=== PATIENT | male | born 1945 | race Caucasian/White ===

== ENCOUNTER 2017-10-22 09:41 | Inpatient (IN) | payer OTHER, MEDICAID ==
[2017-10-22 13:20] LABS: ADD MAN DIFF? NO
[2017-10-22 13:23] LABS: WHITE BLOOD COUNT 6.2 10^3/ul (4.8-10.8)
[2017-10-22 13:23] LABS: ABNORMAL IP MESSAGE 1; BASOPHIL # 0.1 10^3/ul (0.0-0.1); BASOPHILS % 0.8 % (0.0-2.0); EOSINOPHILS # 0.3 10^3/ul (0.0-0.5); EOSINOPHILS % 5.5 % (0.0-7.0); HEMATOCRIT 40.6 % (42.0-52.0); HEMOGLOBIN 13.8 g/dl (14.0-18.0); LYMPHOCYTES # 0.6 10^3/ul (0.8-2.9); MEAN CORPUSCULAR HEMOGLOBIN 28.9 pg (29.0-33.0); MEAN CORPUSCULAR VOLUME 85.1 fl (82.0-101.0); MEAN PLATELET VOLUME 10.1 fl (7.4-10.4); MONOCYTE # 0.9 10^3/ul (0.3-0.9); NEUTROPHIL # 4.4 10^3/ul (1.6-7.5); NEUTROPHILS % 70.4 % (39.0-77.0); PLATELET COUNT 209 10^3/UL (140-415); POSITIVE DIFF @See below; RED BLOOD COUNT 4.77 10^6/ul (4.70-6.10); RED CELL DISTRIBUTION WIDTH 13.7 % (11.5-14.5)
[2017-10-22 13:38] LABS: INR 0.96; PROTIME 12.9 Sec (11.9-14.9)
[2017-10-22 13:39] LABS: PARTIAL THROMBOPLASTIN TIME 26.4 Sec (25.0-35.0)
[2017-10-22 13:40] LABS: ANION GAP 19 (8-16); BLOOD UREA NITROGEN 34 mg/dl (7-20); CALCIUM 8.8 mg/dl (8.4-10.2); CARBON DIOXIDE 23 mmol/L (21-31); CHLORIDE 107 mmol/L (97-110); CREATININE 2.49 mg/dl (0.61-1.24); GLUCOSE 158 mg/dl (70-220); POTASSIUM 3.7 mmol/L (3.5-5.1); SODIUM 145 mmol/L (135-144)
[2017-10-22 13:52] LABS: TROPONIN-I 0.072 ng/ml (0.00-0.12)
[2017-10-22] MEDS: IPRATROPIUM (NEB) 0.5 MG/2.5 ML AMP INH (13:55)
[2017-10-22] MEDS: ALBUTEROL 0.083% (NEB) 2.5 MG/3 ML AMP INH (13:55)
[2017-10-22 14:32] LABS: B-TYPE NATRIURETIC PEPTIDE 3860 PG/ML (0-125)
[2017-10-22] MEDS: CEFTRIAXONE 1 GM/50 ML (PMX) 50 ML IVPB (18:05)
[2017-10-22] MEDS: AZITHROMYCIN 500MG/NS (PMX) 250 ML IVPB (18:44)
[2017-10-22] MEDS ORDERED: ONDANSETRON 4 MG INJ IV (20:00)
[2017-10-22] MEDS: NITROGLYCERIN 2% 1 GM OINT PKT TD (22:33)
[2017-10-22] MEDS: ACETAMINOPHEN 325 MG TAB PO (22:34)
[2017-10-23] MEDS ORDERED: hydrALAzine 20 MG INJ (00:51)
[2017-10-23] MEDS: hydrALAzine 20 MG INJ IV ×3 (00:53→22:14)
[2017-10-23] MEDS: LABETALOL HCL 20MG INJ IV (02:51)
[2017-10-23] MEDS ORDERED: traMADol 50 MG TAB PO (05:00)
[2017-10-23] MEDS ORDERED: ACETAMINOPHEN 325 MG TAB PO (05:00)
[2017-10-23] MEDS ORDERED: ONDANSETRON 4 MG INJ IV (05:00)
[2017-10-23] MEDS ORDERED: NACL 0.9% 3 ML SYG IV (05:00)
[2017-10-23] MEDS ORDERED: ALBUTEROL/IPRATROPIUM (NEB) 3 ML AMP HHN (05:00)
[2017-10-23] MEDS: PANTOPRAZOLE (EC) 40 MG TAB PO (05:38)
[2017-10-23] MEDS: LEVOFLOXACIN 500MG/D5W (PMX) 100 ML IVPB (05:38)
[2017-10-23] MEDS: LOSARTAN 50 MG TAB PO (08:28)
[2017-10-23] MEDS: AMLODIPINE 10 MG TAB PO (08:28)
[2017-10-23] MEDS: CLOPIDOGREL 75 MG TAB PO (08:28)
[2017-10-23] MEDS: FEBUXOSTAT 40 MG TABLET PO (08:29)
[2017-10-23] MEDS: ISOSORBIDE DINITRATE 10 MG TAB PO (08:29)
[2017-10-23] MEDS ORDERED: GLUCAGON 1 MG INJ IM (12:30)
[2017-10-23] MEDS ORDERED: DEXTROSE 50% 50 ML SYRINGE IV ×2 (12:30)
[2017-10-23] MEDS ORDERED: GLUCOSE GEL 15 GRAM TUBE BUCCAL (12:30)
[2017-10-23] MEDS ORDERED: GLUCOSE GEL 15 GRAM TUBE PO ×2 (12:30)
[2017-10-23] MEDS: FUROSEMIDE 20 MG INJ IV (13:24)
[2017-10-23] MEDS: ASPIRIN 81 MG TAB PO (13:24)
[2017-10-23] MEDS: ALBUTEROL/IPRATROPIUM (NEB) 3 ML AMP HHN ×2 (15:25→22:00)
[2017-10-23] MEDS: INSULIN ASPART [NOVOLOG] 3 ML PEN SC ×2 (17:37→20:20)
[2017-10-23] MEDS: INSULIN GLARGINE [LANtus] 3 ML PEN SC (20:21)
[2017-10-23] MEDS: ATORVASTATIN 20 MG TAB PO (20:23)
[2017-10-23] MEDS ORDERED: [UNRECOGNIZED DRUG - OTHER] SQ (21:00)
[2017-10-23] MEDS ORDERED: INSULIN GLARGINE HUM REC ANLOG 20 UNIT SQ (21:00)
[2017-10-24] MEDS: ACCU-CHEK XX (02:23)
[2017-10-24] MEDS: PANTOPRAZOLE (EC) 40 MG TAB PO (05:19)
[2017-10-24] MEDS: LEVOFLOXACIN 250MG/D5W (PMX) 50 ML IVPB (05:19)
[2017-10-24] MEDS: CEPASTAT LOZENGE MT (05:23)
[2017-10-24 06:08] LABS: ADD MAN DIFF? NO
[2017-10-24 06:34] LABS: BASOPHIL # 0.1 10^3/ul (0.0-0.1); EOSINOPHILS # 0.5 10^3/ul (0.0-0.5); EOSINOPHILS % 6.5 % (0.0-7.0); HEMATOCRIT 36.7 % (42.0-52.0); HEMOGLOBIN 12.5 g/dl (14.0-18.0); LYMPHOCYTES # 1.1 10^3/ul (0.8-2.9); LYMPHOCYTES % 16.4 % (15.0-51.0); MEAN CORPUSCULAR HEMOGLOBIN 28.6 pg (29.0-33.0); MEAN CORPUSCULAR HGB CONC 34.1 g/dl (32.0-37.0); MEAN PLATELET VOLUME 10.3 fl (7.4-10.4); MONOCYTE # 0.8 10^3/ul (0.3-0.9); MONOCYTES % 11.2 % (0.0-11.0); NEUTROPHIL # 4.5 10^3/ul (1.6-7.5); NEUTROPHILS % 64.6 % (39.0-77.0); PLATELET COUNT 227 10^3/UL (140-415); POSITIVE DIFF @See below; RED BLOOD COUNT 4.37 10^6/ul (4.70-6.10); RED CELL DISTRIBUTION WIDTH 14.1 % (11.5-14.5)
[2017-10-24 06:34] LABS: WHITE BLOOD COUNT 6.9 10^3/ul (4.8-10.8)
[2017-10-24 07:32] LABS: ALANINE AMINOTRANSFERASE 33 IU/L (13-69); ALBUMIN 3.3 g/dl (3.3-4.9); ALKALINE PHOSPHATASE 88 IU/L (42-121); ANION GAP 17 (8-16); ASPARTATE AMINO TRANSFERASE 23 IU/L (15-46); BILIRUBIN,INDIRECT 0.1 mg/dl (0-1.1); BILIRUBIN,TOTAL 0.1 mg/dl (0.2-1.3); BLOOD UREA NITROGEN 41 mg/dl (7-20); CALCIUM 8.8 mg/dl (8.4-10.2); CARBON DIOXIDE 23 mmol/L (21-31); CHLORIDE 108 mmol/L (97-110); CREATININE 2.48 mg/dl (0.61-1.24); GLUCOSE 152 mg/dl (70-220); MAGNESIUM 1.9 mg/dl (1.7-2.5); PHOSPHORUS 3.4 mg/dl (2.5-4.9); POTASSIUM 3.7 mmol/L (3.5-5.1); SODIUM 144 mmol/L (135-144); TOTAL PROTEIN 6.3 g/dl (6.1-8.1)
[2017-10-24] MEDS ORDERED: morphine 2 MG INJ IV (08:00)
[2017-10-24] MEDS: INSULIN ASPART [NOVOLOG] 3 ML PEN SC ×4 (08:06→20:13)
[2017-10-24] MEDS: ALBUTEROL/IPRATROPIUM (NEB) 3 ML AMP HHN ×3 (08:08→20:09)
[2017-10-24] MEDS: LOSARTAN 50 MG TAB PO (08:47)
[2017-10-24] MEDS: ISOSORBIDE DINITRATE 10 MG TAB PO (08:47)
[2017-10-24] MEDS: FEBUXOSTAT 40 MG TABLET PO (08:47)
[2017-10-24] MEDS: ASPIRIN 81 MG TAB PO (08:48)
[2017-10-24] MEDS: CLOPIDOGREL 75 MG TAB PO (08:48)
[2017-10-24] MEDS: AMLODIPINE 10 MG TAB PO (08:48)
[2017-10-24 09:00] LABS: TROPONIN-I 0.057 ng/ml (0.00-0.12)
[2017-10-24] MEDS: predniSONE 20 MG TAB PO (12:31)
[2017-10-24] MEDS: ATORVASTATIN 20 MG TAB PO (20:09)
[2017-10-24] MEDS: INSULIN GLARGINE [LANtus] 3 ML PEN SC (20:11)
[2017-10-25] MEDS: ACCU-CHEK XX (02:00)
[2017-10-25] MEDS: LEVOFLOXACIN 250 MG TAB PO (05:09)
[2017-10-25] MEDS: PANTOPRAZOLE (EC) 40 MG TAB PO (05:09)
[2017-10-25] MEDS: ALBUTEROL/IPRATROPIUM (NEB) 3 ML AMP HHN ×3 (08:02→19:10)
[2017-10-25] MEDS: INSULIN ASPART [NOVOLOG] 3 ML PEN SC ×7 (08:20→22:08)
[2017-10-25] MEDS: LOSARTAN 50 MG TAB PO (09:29)
[2017-10-25] MEDS: CLOPIDOGREL 75 MG TAB PO (09:30)
[2017-10-25] MEDS: FEBUXOSTAT 40 MG TABLET PO (09:30)
[2017-10-25] MEDS: predniSONE 20 MG TAB PO (09:30)
[2017-10-25] MEDS: AMLODIPINE 10 MG TAB PO (09:30)
[2017-10-25] MEDS: ASPIRIN 81 MG TAB PO (09:31)
[2017-10-25] MEDS: ISOSORBIDE DINITRATE 10 MG TAB PO (09:31)
[2017-10-25] MEDS: ATORVASTATIN 20 MG TAB PO (20:32)
[2017-10-25] MEDS: INSULIN GLARGINE [LANtus] 3 ML PEN SC (20:35)
[2017-10-25 21:37] LABS: GLUCOSE 507 mg/dl (70-220)
[2017-10-26] MEDS: ACCU-CHEK XX (01:20)
[2017-10-26] MEDS: hydrALAzine 20 MG INJ IV (02:31)
[2017-10-26] MEDS: INSULIN ASPART [NOVOLOG] 3 ML PEN SC ×7 (02:35→20:45)
[2017-10-26] MEDS: LEVOFLOXACIN 250 MG TAB PO (05:16)
[2017-10-26] MEDS: PANTOPRAZOLE (EC) 40 MG TAB PO (05:16)
[2017-10-26] MEDS: PHENOL 1.4% SOLN 180 ML BTL MT (05:55)
[2017-10-26] MEDS: CEPASTAT LOZENGE MT ×3 (06:30→18:03)
[2017-10-26 07:27] LABS: ALBUMIN 3.2 g/dl (3.3-4.9); ANION GAP 16 (8-16); BLOOD UREA NITROGEN 68 mg/dl (7-20); CARBON DIOXIDE 19 mmol/L (21-31); CHLORIDE 106 mmol/L (97-110); CREATININE 2.95 mg/dl (0.61-1.24); GLUCOSE 263 mg/dl (70-220); PHOSPHORUS 4.4 mg/dl (2.5-4.9); POTASSIUM 3.9 mmol/L (3.5-5.1); SODIUM 137 mmol/L (135-144)
[2017-10-26] MEDS: ALBUTEROL/IPRATROPIUM (NEB) 3 ML AMP HHN ×3 (08:10→19:32)
[2017-10-26] MEDS: FLUTICASONE 0.05% 16 GM NAS SPRAY NASAL ×2 (09:21→20:22)
[2017-10-26] MEDS: ASPIRIN 81 MG TAB PO (09:22)
[2017-10-26] MEDS: DOCUSATE SODIUM 100 MG CAP PO ×2 (09:23→20:22)
[2017-10-26] MEDS: LOSARTAN 50 MG TAB PO (09:23)
[2017-10-26] MEDS: CLOPIDOGREL 75 MG TAB PO (09:24)
[2017-10-26] MEDS: AMLODIPINE 10 MG TAB PO (09:24)
[2017-10-26] MEDS: POLYETHYLENE GLYCOL 17 GM PACKET PO (09:24)
[2017-10-26] MEDS: predniSONE 20 MG TAB PO ×2 (09:24→13:00)
[2017-10-26] MEDS: ISOSORBIDE DINITRATE 10 MG TAB PO (09:24)
[2017-10-26] MEDS: FEBUXOSTAT 40 MG TABLET PO (09:29)
[2017-10-26] MEDS: ATORVASTATIN 20 MG TAB PO (20:22)
[2017-10-26] MEDS: INSULIN GLARGINE [LANtus] 3 ML PEN SC (20:24)
[2017-10-27] MEDS: ACCU-CHEK XX (02:00)
[2017-10-27] MEDS: INSULIN ASPART [NOVOLOG] 3 ML PEN SC ×8 (02:23→20:39)
[2017-10-27] MEDS: PANTOPRAZOLE (EC) 40 MG TAB PO (05:34)
[2017-10-27] MEDS: LEVOFLOXACIN 250 MG TAB PO (05:34)
[2017-10-27 07:05] LABS: ANION GAP 14 (8-16); ANION GAP 16 (8-16); BLOOD UREA NITROGEN 75 mg/dl (7-20); BLOOD UREA NITROGEN 76 mg/dl (7-20); CALCIUM 8.6 mg/dl (8.4-10.2); CALCIUM 8.9 mg/dl (8.4-10.2); CARBON DIOXIDE 22 mmol/L (21-31); CARBON DIOXIDE 23 mmol/L (21-31); CHLORIDE 104 mmol/L (97-110); CREATININE 3.25 mg/dl (0.61-1.24); GLUCOSE 293 mg/dl (70-220); GLUCOSE 301 mg/dl (70-220); MAGNESIUM 2.1 mg/dl (1.7-2.5); PHOSPHORUS 4.8 mg/dl (2.5-4.9); POTASSIUM 4.4 mmol/L (3.5-5.1); POTASSIUM 4.9 mmol/L (3.5-5.1); SODIUM 137 mmol/L (135-144)
[2017-10-27] MEDS: ALBUTEROL/IPRATROPIUM (NEB) 3 ML AMP HHN ×3 (08:01→20:16)
[2017-10-27] MEDS: FEBUXOSTAT 40 MG TABLET PO (08:29)
[2017-10-27] MEDS: ASPIRIN 81 MG TAB PO (08:29)
[2017-10-27] MEDS: DOCUSATE SODIUM 100 MG CAP PO ×2 (08:29→20:36)
[2017-10-27] MEDS: AMLODIPINE 10 MG TAB PO (08:29)
[2017-10-27] MEDS: CLOPIDOGREL 75 MG TAB PO (08:29)
[2017-10-27] MEDS: FLUTICASONE 0.05% 16 GM NAS SPRAY NASAL ×2 (08:29→20:36)
[2017-10-27] MEDS: ISOSORBIDE DINITRATE 10 MG TAB PO (08:30)
[2017-10-27] MEDS: POLYETHYLENE GLYCOL 17 GM PACKET PO (08:30)
[2017-10-27] MEDS: ATORVASTATIN 20 MG TAB PO (20:36)
[2017-10-27] MEDS: CEPASTAT LOZENGE MT (20:36)
[2017-10-27] MEDS: INSULIN GLARGINE [LANtus] 3 ML PEN SC (20:38)
[2017-10-28] MEDS: PHENOL 1.4% SOLN 180 ML BTL MT (00:56)
[2017-10-28] MEDS: CEPASTAT LOZENGE MT ×2 (00:56→05:39)
[2017-10-28] MEDS ORDERED: CAMPHOR TOP (01:00)
[2017-10-28] MEDS ORDERED: MENTHOL TOP (01:00)
[2017-10-28] MEDS: DIMETHICONE STICK TOP (01:03)
[2017-10-28] MEDS: ACCU-CHEK XX (01:27)
[2017-10-28] MEDS: BENZONATATE 100 MG CAP PO ×3 (01:33→12:24)
[2017-10-28] MEDS: PANTOPRAZOLE (EC) 40 MG TAB PO (05:34)
[2017-10-28] MEDS: LEVOFLOXACIN 250 MG TAB PO (05:34)
[2017-10-28] MEDS: ALBUTEROL/IPRATROPIUM (NEB) 3 ML AMP HHN ×2 (08:00→15:05)
[2017-10-28] MEDS: INSULIN ASPART [NOVOLOG] 3 ML PEN SC ×4 (08:00→12:21)
[2017-10-28 08:03] LABS: ALBUMIN 3.1 g/dl (3.3-4.9); ANION GAP 15 (8-16); BLOOD UREA NITROGEN 73 mg/dl (7-20); CALCIUM 8.3 mg/dl (8.4-10.2); CARBON DIOXIDE 21 mmol/L (21-31); CHLORIDE 109 mmol/L (97-110); CREATININE 2.77 mg/dl (0.61-1.24); GLUCOSE 159 mg/dl (70-220); MAGNESIUM 2.1 mg/dl (1.7-2.5); PHOSPHORUS 4.3 mg/dl (2.5-4.9); POTASSIUM 3.7 mmol/L (3.5-5.1); SODIUM 141 mmol/L (135-144)
[2017-10-28 08:07] LABS: ANION GAP 17 (8-16); BLOOD UREA NITROGEN 75 mg/dl (7-20); CALCIUM 8.2 mg/dl (8.4-10.2); CARBON DIOXIDE 20 mmol/L (21-31); CHLORIDE 108 mmol/L (97-110); CREATININE 2.64 mg/dl (0.61-1.24); GLUCOSE 154 mg/dl (70-220); POTASSIUM 4.1 mmol/L (3.5-5.1); SODIUM 141 mmol/L (135-144)
[2017-10-28] MEDS: ISOSORBIDE DINITRATE 10 MG TAB PO (08:59)
[2017-10-28] MEDS: FLUTICASONE 0.05% 16 GM NAS SPRAY NASAL (08:59)
[2017-10-28] MEDS: AMLODIPINE 10 MG TAB PO (09:00)
[2017-10-28] MEDS: FEBUXOSTAT 40 MG TABLET PO (09:00)
[2017-10-28] MEDS: DOCUSATE SODIUM 100 MG CAP PO (09:00)
[2017-10-28] MEDS: ASPIRIN 81 MG TAB PO (09:00)
[2017-10-28] MEDS: POLYETHYLENE GLYCOL 17 GM PACKET PO (09:00)
[2017-10-28] MEDS: CLOPIDOGREL 75 MG TAB PO (09:00)
== END 2017-10-28 16:50 | disposition home or self-care (01) | DRG 202 ==
LOC: PP2 19:40 → E/R 09:41
DX: J20.8 Acute bronchitis due to other specified organisms (principal); J18.9 Pneumonia, unspecified organism; I50.23 Acute on chronic systolic (congestive) heart failure; N17.9 Acute kidney failure, unspecified; I13.0 Hypertensive heart and chronic kidney disease with heart failure and stage 1 through stage 4 chronic kidney disease, or unspecified chronic kidney disease; I42.9 Cardiomyopathy, unspecified; E11.9 Type 2 diabetes mellitus without complications; J44.0 Chronic obstructive pulmonary disease with (acute) lower respiratory infection; J44.1 Chronic obstructive pulmonary disease with (acute) exacerbation; Z95.5 Presence of coronary angioplasty implant and graft; J45.20 Mild intermittent asthma, uncomplicated; Z87.891 Personal history of nicotine dependence; E78.5 Hyperlipidemia, unspecified; I20.9 Angina pectoris, unspecified; N18.9 Chronic kidney disease, unspecified; M10.9 Gout, unspecified
CPT/HCPCS: 36415; 71045; 71250; 76775; 80048; 80053; 80069; 82947; 82962; 83735; 83880; 84100; 84484; 85025; 85610; 85730; 87400; 93005; 93306; 94640; 94664; 96374; 96375; 96376; 97166; 97535; 99285-25; J1940

== ENCOUNTER 2017-10-30 03:40 | Inpatient (IN) | payer OTHER, MEDICAID ==
[2017-10-30 04:09] LABS: ADD MAN DIFF? NO
[2017-10-30 04:11] LABS: BASOPHILS % 0.4 % (0.0-2.0); EOSINOPHILS # 0.5 10^3/ul (0.0-0.5); HEMATOCRIT 39.2 % (42.0-52.0); HEMOGLOBIN 13.4 g/dl (14.0-18.0); LYMPHOCYTES # 1.4 10^3/ul (0.8-2.9); LYMPHOCYTES % 15.1 % (15.0-51.0); MEAN CORPUSCULAR HEMOGLOBIN 28.8 pg (29.0-33.0); MEAN CORPUSCULAR HGB CONC 34.2 g/dl (32.0-37.0); MEAN CORPUSCULAR VOLUME 84.1 fl (82.0-101.0); MONOCYTES % 11.5 % (0.0-11.0); NEUTROPHIL # 5.9 10^3/ul (1.6-7.5); PLATELET COUNT 287 10^3/UL (140-415); RED BLOOD COUNT 4.66 10^6/ul (4.70-6.10); RED CELL DISTRIBUTION WIDTH 13.8 % (11.5-14.5)
[2017-10-30 04:27] LABS: ANION GAP 15 (8-16); BLOOD UREA NITROGEN 52 mg/dl (7-20); CALCIUM 8.6 mg/dl (8.4-10.2); CARBON DIOXIDE 24 mmol/L (21-31); CHLORIDE 108 mmol/L (97-110); CREATININE 2.32 mg/dl (0.61-1.24); GLUCOSE 127 mg/dl (70-220); POTASSIUM 3.8 mmol/L (3.5-5.1); SODIUM 143 mmol/L (135-144)
[2017-10-30 04:38] LABS: B-TYPE NATRIURETIC PEPTIDE 2430 PG/ML (0-125); TROPONIN-I 0.047 ng/ml (0.00-0.12)
[2017-10-30 04:52] LABS: INR 0.89; PROTIME 12.1 Sec (11.9-14.9); PT RATIO 0.9
[2017-10-30] MEDS ORDERED: NACL 0.9% 3 ML SYG IV (06:00)
[2017-10-30] MEDS ORDERED: ONDANSETRON 4 MG TAB PO (06:00)
[2017-10-30] MEDS ORDERED: BISACODYL (EC) 5 MG TAB PO (06:00)
[2017-10-30] MEDS: FUROSEMIDE 40 MG INJ IV (06:25)
[2017-10-30] MEDS ORDERED: hydrALAzine 20 MG INJ IV ×2 (09:00→13:00)
[2017-10-30] MEDS ORDERED: GLUCAGON 1 MG INJ IM (10:00)
[2017-10-30] MEDS ORDERED: DEXTROSE 50% 50 ML SYRINGE IV ×2 (10:00)
[2017-10-30] MEDS ORDERED: GLUCOSE GEL 15 GRAM TUBE BUCCAL (10:00)
[2017-10-30] MEDS ORDERED: GLUCOSE GEL 15 GRAM TUBE PO ×2 (10:00)
[2017-10-30] MEDS: FISH OIL 1,000 MG CAP PO ×2 (10:33→21:36)
[2017-10-30] MEDS: ASPIRIN 81 MG TAB PO (10:33)
[2017-10-30] MEDS: AMLODIPINE 10 MG TAB PO (10:33)
[2017-10-30] MEDS: CLOPIDOGREL 75 MG TAB PO (10:34)
[2017-10-30] MEDS: FEBUXOSTAT 40 MG TABLET PO (10:34)
[2017-10-30] MEDS: ISOSORBIDE MONONITRATE(SR)30 MG TAB PO (10:34)
[2017-10-30] MEDS: INSULIN ASPART [NOVOLOG] 3 ML PEN SC ×5 (12:31→21:00)
[2017-10-30] MEDS: ALBUTEROL/IPRATROPIUM (NEB) 3 ML AMP HHN ×2 (14:00→20:09)
[2017-10-30] MEDS: FUROSEMIDE 20 MG INJ IV (17:08)
[2017-10-30] MEDS ORDERED: FUROSEMIDE 40 MG INJ IV (18:00)
[2017-10-30] MEDS ORDERED: INSULIN GLARGINE [LANtus] 3 ML PEN SC (21:00)
[2017-10-30] MEDS: ATORVASTATIN 20 MG TAB PO (21:36)
[2017-10-30] MEDS: HEPARIN 5,000 UNIT/0.5 ML VIAL SC (21:38)
[2017-10-31] MEDS: ACCU-CHEK XX (02:00)
[2017-10-31] MEDS: FUROSEMIDE 20 MG INJ IV ×2 (06:36→18:44)
[2017-10-31] MEDS: PANTOPRAZOLE (EC) 40 MG TAB PO (06:36)
[2017-10-31 06:43] LABS: ADD MAN DIFF? NO
[2017-10-31 06:50] LABS: WHITE BLOOD COUNT 11.8 10^3/ul (4.8-10.8)
[2017-10-31 06:50] LABS: BASOPHIL # 0.1 10^3/ul (0.0-0.1); BASOPHILS % 0.4 % (0.0-2.0); EOSINOPHILS # 0.6 10^3/ul (0.0-0.5); EOSINOPHILS % 5.1 % (0.0-7.0); HEMOGLOBIN 13.8 g/dl (14.0-18.0); LYMPHOCYTES # 1.3 10^3/ul (0.8-2.9); LYMPHOCYTES % 11.3 % (15.0-51.0); MEAN CORPUSCULAR HEMOGLOBIN 27.8 pg (29.0-33.0); MEAN CORPUSCULAR HGB CONC 32.9 g/dl (32.0-37.0); MEAN CORPUSCULAR VOLUME 84.7 fl (82.0-101.0); MEAN PLATELET VOLUME 10.1 fl (7.4-10.4); MONOCYTE # 1.1 10^3/ul (0.3-0.9); NEUTROPHIL # 8.7 10^3/ul (1.6-7.5); NEUTROPHILS % 73.6 % (39.0-77.0); PLATELET COUNT 302 10^3/UL (140-415); RED BLOOD COUNT 4.96 10^6/ul (4.70-6.10); RED CELL DISTRIBUTION WIDTH 13.8 % (11.5-14.5)
[2017-10-31 07:09] LABS: ALANINE AMINOTRANSFERASE 36 IU/L (13-69); ALBUMIN 3.1 g/dl (3.3-4.9); ALKALINE PHOSPHATASE 87 IU/L (42-121); ANION GAP 14 (8-16); ASPARTATE AMINO TRANSFERASE 22 IU/L (15-46); BILIRUBIN,INDIRECT 0.4 mg/dl (0-1.1); BILIRUBIN,TOTAL 0.4 mg/dl (0.2-1.3); BLOOD UREA NITROGEN 59 mg/dl (7-20); CARBON DIOXIDE 26 mmol/L (21-31); CHLORIDE 104 mmol/L (97-110); CHOL/HDL RATIO 3.3 RATIO; CHOLESTEROL 117 mg/dl (100-200); CREATININE 2.38 mg/dl (0.61-1.24); GLUCOSE 126 mg/dl (70-220); HDL CHOLESTEROL 35 mg/dl (31-75); LDL CHOLESTEROL,CALCULATED 58 mg/dl; POTASSIUM 3.6 mmol/L (3.5-5.1); SODIUM 140 mmol/L (135-144); TOTAL PROTEIN 5.9 g/dl (6.1-8.1); TRIGLYCERIDES 121 mg/dl (0-149)
[2017-10-31 07:12] LABS: CREATINE KINASE 41 IU/L (23-200); URIC ACID 6.7 mg/dl (3.1-7.9)
[2017-10-31 07:51] LABS: HEMOGLOBIN A1C 8.2 % (0-5.9)
[2017-10-31] MEDS: ALBUTEROL/IPRATROPIUM (NEB) 3 ML AMP HHN ×3 (07:57→20:02)
[2017-10-31] MEDS: INSULIN ASPART [NOVOLOG] 3 ML PEN SC ×7 (08:00→21:00)
[2017-10-31 08:39] LABS: SODIUM,URINE RANDOM 98 mmol/L (30-90)
[2017-10-31 08:42] LABS: CREATININE,URINE RANDOM 33.29 mg/dl (20-370)
[2017-10-31] MEDS: HEPARIN 5,000 UNIT/0.5 ML VIAL SC ×2 (08:49→21:15)
[2017-10-31] MEDS: INSULIN GLARGINE [LANtus] 3 ML PEN SC (08:50)
[2017-10-31] MEDS: FEBUXOSTAT 40 MG TABLET PO (08:50)
[2017-10-31] MEDS: AMLODIPINE 10 MG TAB PO (08:51)
[2017-10-31] MEDS: ISOSORBIDE MONONITRATE(SR)30 MG TAB PO (08:51)
[2017-10-31] MEDS: ASPIRIN 81 MG TAB PO (08:51)
[2017-10-31] MEDS: FISH OIL 1,000 MG CAP PO ×2 (08:51→21:06)
[2017-10-31] MEDS: CLOPIDOGREL 75 MG TAB PO (08:51)
[2017-10-31] MEDS ORDERED: ISOSORBIDE MONONITRATE(SR)30 MG TAB PO (09:00)
[2017-10-31] MEDS: ATORVASTATIN 20 MG TAB PO (21:06)
[2017-11-01] MEDS: ACCU-CHEK XX (02:00)
[2017-11-01] MEDS: PANTOPRAZOLE (EC) 40 MG TAB PO (06:48)
[2017-11-01] MEDS: FUROSEMIDE 20 MG INJ IV (06:48)
[2017-11-01] MEDS: ALBUTEROL/IPRATROPIUM (NEB) 3 ML AMP HHN ×3 (08:05→19:42)
[2017-11-01] MEDS: FEBUXOSTAT 40 MG TABLET PO (08:44)
[2017-11-01] MEDS: FISH OIL 1,000 MG CAP PO ×2 (08:45→21:19)
[2017-11-01] MEDS: ASPIRIN 81 MG TAB PO (08:45)
[2017-11-01] MEDS: ISOSORBIDE MONONITRATE(SR)30 MG TAB PO (08:45)
[2017-11-01] MEDS: CLOPIDOGREL 75 MG TAB PO (08:45)
[2017-11-01] MEDS: AMLODIPINE 10 MG TAB PO (08:46)
[2017-11-01] MEDS: HEPARIN 5,000 UNIT/0.5 ML VIAL SC ×2 (08:50→21:22)
[2017-11-01] MEDS: INSULIN ASPART [NOVOLOG] 3 ML PEN SC ×7 (08:51→21:00)
[2017-11-01] MEDS: INSULIN GLARGINE [LANtus] 3 ML PEN SC (08:52)
[2017-11-01 08:55] LABS: ADD MAN DIFF? NO
[2017-11-01 09:02] LABS: WHITE BLOOD COUNT 14.8 10^3/ul (4.8-10.8)
[2017-11-01 09:02] LABS: BASOPHIL # 0.1 10^3/ul (0.0-0.1); BASOPHILS % 0.4 % (0.0-2.0); EOSINOPHILS # 0.6 10^3/ul (0.0-0.5); EOSINOPHILS % 3.9 % (0.0-7.0); HEMOGLOBIN 13.3 g/dl (14.0-18.0); LYMPHOCYTES # 1.2 10^3/ul (0.8-2.9); MEAN CORPUSCULAR HEMOGLOBIN 28.6 pg (29.0-33.0); MEAN CORPUSCULAR HGB CONC 34.1 g/dl (32.0-37.0); MEAN CORPUSCULAR VOLUME 83.9 fl (82.0-101.0); MEAN PLATELET VOLUME 10.7 fl (7.4-10.4); MONOCYTE # 1.3 10^3/ul (0.3-0.9); MONOCYTES % 9.1 % (0.0-11.0); NEUTROPHIL # 11.6 10^3/ul (1.6-7.5); NEUTROPHILS % 78.1 % (39.0-77.0); PLATELET COUNT 283 10^3/UL (140-415); RED BLOOD COUNT 4.65 10^6/ul (4.70-6.10)
[2017-11-01 09:18] LABS: PHOSPHORUS 4.5 mg/dl (2.5-4.9)
[2017-11-01 09:21] LABS: ANION GAP 14 (8-16); BLOOD UREA NITROGEN 74 mg/dl (7-20); CALCIUM 8.8 mg/dl (8.4-10.2); CARBON DIOXIDE 24 mmol/L (21-31); CHLORIDE 102 mmol/L (97-110); CREATININE 2.97 mg/dl (0.61-1.24); GLUCOSE 194 mg/dl (70-220); POTASSIUM 3.3 mmol/L (3.5-5.1); SODIUM 137 mmol/L (135-144)
[2017-11-01] MEDS: POTASSIUM CHLORIDE (SR) 20 MEQ TAB PO (10:32)
[2017-11-01] MEDS ORDERED: GUAIFENESIN 20 MG/ML 5ML CUP PO (14:00)
[2017-11-01] MEDS: GABAPENTIN 100 MG CAP PO (21:19)
[2017-11-01] MEDS: ATORVASTATIN 20 MG TAB PO (21:20)
[2017-11-01] MEDS: BENZONATATE 100 MG CAP PO (21:20)
[2017-11-02] MEDS: ACCU-CHEK XX (02:00)
[2017-11-02] MEDS: ACETAMINOPHEN 325 MG TAB PO ×2 (04:07→09:46)
[2017-11-02] MEDS: PANTOPRAZOLE (EC) 40 MG TAB PO (05:55)
[2017-11-02] MEDS: ALBUTEROL/IPRATROPIUM (NEB) 3 ML AMP HHN ×3 (07:46→20:28)
[2017-11-02] MEDS: INSULIN GLARGINE [LANtus] 3 ML PEN SC (08:32)
[2017-11-02] MEDS: INSULIN ASPART [NOVOLOG] 3 ML PEN SC ×7 (08:32→20:39)
[2017-11-02] MEDS: ISOSORBIDE MONONITRATE(SR)30 MG TAB PO (09:00)
[2017-11-02 09:10] LABS: ADD MAN DIFF? NO
[2017-11-02 09:21] LABS: WHITE BLOOD COUNT 12.5 10^3/ul (4.8-10.8)
[2017-11-02 09:21] LABS: ABNORMAL IP MESSAGE 1; BASOPHIL # 0.1 10^3/ul (0.0-0.1); BASOPHILS % 0.5 % (0.0-2.0); EOSINOPHILS # 0.2 10^3/ul (0.0-0.5); EOSINOPHILS % 1.7 % (0.0-7.0); HEMATOCRIT 37.1 % (42.0-52.0); HEMOGLOBIN 12.6 g/dl (14.0-18.0); LYMPHOCYTES # 0.9 10^3/ul (0.8-2.9); LYMPHOCYTES % 7.4 % (15.0-51.0); MEAN CORPUSCULAR HEMOGLOBIN 28.3 pg (29.0-33.0); MEAN CORPUSCULAR VOLUME 83.4 fl (82.0-101.0); MEAN PLATELET VOLUME 10.6 fl (7.4-10.4); MONOCYTE # 1.5 10^3/ul (0.3-0.9); MONOCYTES % 12.1 % (0.0-11.0); NEUTROPHIL # 9.7 10^3/ul (1.6-7.5); NEUTROPHILS % 77.8 % (39.0-77.0); PLATELET COUNT 250 10^3/UL (140-415); POSITIVE DIFF @See below; RED BLOOD COUNT 4.45 10^6/ul (4.70-6.10)
[2017-11-02 09:45] LABS: B-TYPE NATRIURETIC PEPTIDE 1050 PG/ML (0-125)
[2017-11-02] MEDS: BENZONATATE 100 MG CAP PO ×3 (09:45→20:14)
[2017-11-02] MEDS: FEBUXOSTAT 40 MG TABLET PO (09:45)
[2017-11-02] MEDS: FISH OIL 1,000 MG CAP PO ×2 (09:45→20:14)
[2017-11-02] MEDS: AMLODIPINE 10 MG TAB PO (09:45)
[2017-11-02] MEDS: GABAPENTIN 100 MG CAP PO ×3 (09:45→20:13)
[2017-11-02] MEDS: CLOPIDOGREL 75 MG TAB PO (09:46)
[2017-11-02] MEDS: ASPIRIN 81 MG TAB PO (09:46)
[2017-11-02 09:48] LABS: ANION GAP 13 (8-16); BLOOD UREA NITROGEN 75 mg/dl (7-20); CALCIUM 8.6 mg/dl (8.4-10.2); CARBON DIOXIDE 24 mmol/L (21-31); CHLORIDE 103 mmol/L (97-110); CREATININE 2.65 mg/dl (0.61-1.24); GLUCOSE 176 mg/dl (70-220); POTASSIUM 3.7 mmol/L (3.5-5.1); SODIUM 136 mmol/L (135-144)
[2017-11-02] MEDS: HEPARIN 5,000 UNIT/0.5 ML VIAL SC ×2 (10:23→20:16)
[2017-11-02] MEDS: ATORVASTATIN 20 MG TAB PO (20:13)
[2017-11-02] MEDS: HYDROCODONE/APAP (5/325) TAB PO (20:36)
[2017-11-03] MEDS: ACCU-CHEK XX (02:00)
[2017-11-03] MEDS: HYDROCODONE/APAP (5/325) TAB PO (03:35)
[2017-11-03] MEDS: PANTOPRAZOLE (EC) 40 MG TAB PO (05:21)
[2017-11-03 07:16] LABS: ADD MAN DIFF? NO
[2017-11-03 07:17] LABS: WHITE BLOOD COUNT 12.6 10^3/ul (4.8-10.8)
[2017-11-03 07:17] LABS: ABNORMAL IP MESSAGE 1; BASOPHIL # 0.1 10^3/ul (0.0-0.1); BASOPHILS % 0.4 % (0.0-2.0); EOSINOPHILS # 0.2 10^3/ul (0.0-0.5); EOSINOPHILS % 1.4 % (0.0-7.0); HEMATOCRIT 34.9 % (42.0-52.0); HEMOGLOBIN 11.8 g/dl (14.0-18.0); LYMPHOCYTES % 7.8 % (15.0-51.0); MEAN CORPUSCULAR HEMOGLOBIN 28.4 pg (29.0-33.0); MEAN CORPUSCULAR HGB CONC 33.8 g/dl (32.0-37.0); MEAN CORPUSCULAR VOLUME 83.9 fl (82.0-101.0); MEAN PLATELET VOLUME 10.5 fl (7.4-10.4); MONOCYTES % 16.2 % (0.0-11.0); NEUTROPHIL # 9.3 10^3/ul (1.6-7.5); NEUTROPHILS % 73.8 % (39.0-77.0); PLATELET COUNT 223 10^3/UL (140-415); POSITIVE DIFF @See below; RED BLOOD COUNT 4.16 10^6/ul (4.70-6.10)
[2017-11-03 07:53] LABS: ANION GAP 21 (8-16)
[2017-11-03 07:54] LABS: BLOOD UREA NITROGEN 74 mg/dl (7-20); CALCIUM 7.1 mg/dl (8.4-10.2); CARBON DIOXIDE 15 mmol/L (21-31); CHLORIDE 104 mmol/L (97-110); GLUCOSE 148 mg/dl (70-220); SODIUM 136 mmol/L (135-144)
[2017-11-03] MEDS: FISH OIL 1,000 MG CAP PO ×2 (08:28→21:53)
[2017-11-03] MEDS: CLOPIDOGREL 75 MG TAB PO (08:28)
[2017-11-03] MEDS: GABAPENTIN 100 MG CAP PO ×3 (08:28→21:54)
[2017-11-03] MEDS: BENZONATATE 100 MG CAP PO ×3 (08:28→21:58)
[2017-11-03] MEDS: FEBUXOSTAT 40 MG TABLET PO (08:28)
[2017-11-03] MEDS: AMLODIPINE 10 MG TAB PO (08:29)
[2017-11-03] MEDS: ISOSORBIDE MONONITRATE(SR)30 MG TAB PO (08:30)
[2017-11-03] MEDS: HEPARIN 5,000 UNIT/0.5 ML VIAL SC ×2 (08:30→22:00)
[2017-11-03] MEDS: ASPIRIN 81 MG TAB PO (08:30)
[2017-11-03] MEDS: INSULIN ASPART [NOVOLOG] 3 ML PEN SC ×7 (08:31→21:00)
[2017-11-03] MEDS: INSULIN GLARGINE [LANtus] 3 ML PEN SC (08:32)
[2017-11-03] MEDS: ALBUTEROL/IPRATROPIUM (NEB) 3 ML AMP HHN ×3 (08:50→19:43)
[2017-11-03] MEDS ORDERED: DICLOFENAC (EC) 25 MG TAB PO (10:30)
[2017-11-03 10:57] LABS: URIC ACID 5.5 mg/dl (3.1-7.9)
[2017-11-03] MEDS: AZITHROMYCIN 250 MG TAB PO (12:20)
[2017-11-03] MEDS: DICLOFENAC (EC) 75 MG TAB PO ×2 (12:20→21:59)
[2017-11-03] MEDS: ATORVASTATIN 20 MG TAB PO (21:53)
[2017-11-04] MEDS: ACCU-CHEK XX (02:00)
[2017-11-04] MEDS: PANTOPRAZOLE (EC) 40 MG TAB PO (05:07)
[2017-11-04] MEDS: ALBUTEROL/IPRATROPIUM (NEB) 3 ML AMP HHN ×3 (08:11→20:04)
[2017-11-04] MEDS: INSULIN ASPART [NOVOLOG] 3 ML PEN SC ×7 (08:42→21:05)
[2017-11-04] MEDS: INSULIN GLARGINE [LANtus] 3 ML PEN SC (08:46)
[2017-11-04] MEDS: FISH OIL 1,000 MG CAP PO ×2 (09:47→21:01)
[2017-11-04] MEDS: CITRIC ACID/SODIUM CITRATE 15 ML CUP PO ×2 (09:47→21:00)
[2017-11-04] MEDS: CLOPIDOGREL 75 MG TAB PO (09:47)
[2017-11-04] MEDS: BENZONATATE 100 MG CAP PO ×3 (09:47→21:01)
[2017-11-04] MEDS: AZITHROMYCIN 250 MG TAB PO (09:47)
[2017-11-04] MEDS: DICLOFENAC (EC) 75 MG TAB PO ×2 (09:47→21:01)
[2017-11-04] MEDS: ASPIRIN 81 MG TAB PO (09:47)
[2017-11-04] MEDS: FEBUXOSTAT 40 MG TABLET PO (09:47)
[2017-11-04] MEDS: GABAPENTIN 100 MG CAP PO ×3 (09:47→21:01)
[2017-11-04] MEDS: AMLODIPINE 10 MG TAB PO (09:48)
[2017-11-04] MEDS: ISOSORBIDE MONONITRATE(SR)30 MG TAB PO (09:48)
[2017-11-04] MEDS: HEPARIN 5,000 UNIT/0.5 ML VIAL SC ×2 (09:54→21:03)
[2017-11-04 09:59] LABS: ADD MAN DIFF? NO
[2017-11-04 10:11] LABS: WHITE BLOOD COUNT 7.7 10^3/ul (4.8-10.8)
[2017-11-04 10:11] LABS: BASOPHIL # 0.1 10^3/ul (0.0-0.1); BASOPHILS % 0.6 % (0.0-2.0); EOSINOPHILS # 0.2 10^3/ul (0.0-0.5); EOSINOPHILS % 2.7 % (0.0-7.0); HEMATOCRIT 34.6 % (42.0-52.0); HEMOGLOBIN 11.5 g/dl (14.0-18.0); MEAN CORPUSCULAR HEMOGLOBIN 28.3 pg (29.0-33.0); MEAN CORPUSCULAR HGB CONC 33.2 g/dl (32.0-37.0); MEAN CORPUSCULAR VOLUME 85.2 fl (82.0-101.0); MEAN PLATELET VOLUME 11.4 fl (7.4-10.4); MONOCYTE # 0.8 10^3/ul (0.3-0.9); MONOCYTES % 10.6 % (0.0-11.0); NEUTROPHIL # 5.6 10^3/ul (1.6-7.5); NEUTROPHILS % 72.8 % (39.0-77.0); PLATELET COUNT 229 10^3/UL (140-415); RED BLOOD COUNT 4.06 10^6/ul (4.70-6.10); RED CELL DISTRIBUTION WIDTH 13.9 % (11.5-14.5)
[2017-11-04 10:42] LABS: ANION GAP 15 (8-16); BLOOD UREA NITROGEN 76 mg/dl (7-20); CALCIUM 8.2 mg/dl (8.4-10.2); CARBON DIOXIDE 23 mmol/L (21-31); CHLORIDE 102 mmol/L (97-110); CREATININE 2.83 mg/dl (0.61-1.24); GLUCOSE 283 mg/dl (70-220); POTASSIUM 3.8 mmol/L (3.5-5.1); SODIUM 136 mmol/L (135-144)
[2017-11-04] MEDS: ATORVASTATIN 20 MG TAB PO (21:01)
[2017-11-05] MEDS: ACCU-CHEK XX (02:00)
[2017-11-05] MEDS: PANTOPRAZOLE (EC) 40 MG TAB PO (05:29)
[2017-11-05] MEDS: ALBUTEROL/IPRATROPIUM (NEB) 3 ML AMP HHN ×3 (07:47→19:19)
[2017-11-05 07:48] LABS: ADD MAN DIFF? NO
[2017-11-05 07:52] LABS: BASOPHIL # 0.1 10^3/ul (0.0-0.1); BASOPHILS % 0.7 % (0.0-2.0); EOSINOPHILS # 0.4 10^3/ul (0.0-0.5); EOSINOPHILS % 4.2 % (0.0-7.0); HEMATOCRIT 35.4 % (42.0-52.0); HEMOGLOBIN 11.5 g/dl (14.0-18.0); LYMPHOCYTES # 1.1 10^3/ul (0.8-2.9); MEAN CORPUSCULAR HEMOGLOBIN 28.3 pg (29.0-33.0); MEAN CORPUSCULAR HGB CONC 32.5 g/dl (32.0-37.0); MEAN PLATELET VOLUME 11.1 fl (7.4-10.4); MONOCYTES % 11.2 % (0.0-11.0); NEUTROPHILS % 70.5 % (39.0-77.0); PLATELET COUNT 247 10^3/UL (140-415); RED BLOOD COUNT 4.07 10^6/ul (4.70-6.10); RED CELL DISTRIBUTION WIDTH 13.9 % (11.5-14.5)
[2017-11-05 07:52] LABS: WHITE BLOOD COUNT 8.5 10^3/ul (4.8-10.8)
[2017-11-05 08:15] LABS: ANION GAP 11 (8-16); BLOOD UREA NITROGEN 89 mg/dl (7-20); CALCIUM 8.7 mg/dl (8.4-10.2); CARBON DIOXIDE 25 mmol/L (21-31); CHLORIDE 103 mmol/L (97-110); CREATININE 3.06 mg/dl (0.61-1.24); GLUCOSE 333 mg/dl (70-220); POTASSIUM 4.4 mmol/L (3.5-5.1); SODIUM 135 mmol/L (135-144)
[2017-11-05] MEDS: INSULIN GLARGINE [LANtus] 3 ML PEN SC (09:14)
[2017-11-05] MEDS: INSULIN ASPART [NOVOLOG] 3 ML PEN SC ×7 (09:15→20:30)
[2017-11-05] MEDS: HEPARIN 5,000 UNIT/0.5 ML VIAL SC ×2 (09:17→20:31)
[2017-11-05] MEDS: FISH OIL 1,000 MG CAP PO ×2 (09:54→20:22)
[2017-11-05] MEDS: FEBUXOSTAT 40 MG TABLET PO (09:54)
[2017-11-05] MEDS: GABAPENTIN 100 MG CAP PO ×3 (09:54→20:22)
[2017-11-05] MEDS: AZITHROMYCIN 250 MG TAB PO (09:55)
[2017-11-05] MEDS: BENZONATATE 100 MG CAP PO ×3 (09:55→20:22)
[2017-11-05] MEDS: ASPIRIN 81 MG TAB PO (09:55)
[2017-11-05] MEDS: CLOPIDOGREL 75 MG TAB PO (09:56)
[2017-11-05] MEDS: ISOSORBIDE MONONITRATE(SR)30 MG TAB PO (09:56)
[2017-11-05] MEDS: AMLODIPINE 5 MG TAB PO (09:56)
[2017-11-05] MEDS: CITRIC ACID/SODIUM CITRATE 15 ML CUP PO ×2 (09:57→20:22)
[2017-11-05] MEDS: ATORVASTATIN 20 MG TAB PO (20:22)
[2017-11-05] MEDS: DOXYCYCLINE 100 MG TAB PO (20:44)
[2017-11-06] MEDS: ACCU-CHEK XX (02:00)
[2017-11-06] MEDS: PANTOPRAZOLE (EC) 40 MG TAB PO (05:35)
[2017-11-06 07:47] LABS: ADD MAN DIFF? NO
[2017-11-06 08:12] LABS: WHITE BLOOD COUNT 7.4 10^3/ul (4.8-10.8)
[2017-11-06 08:12] LABS: BASOPHIL # 0.1 10^3/ul (0.0-0.1); BASOPHILS % 0.8 % (0.0-2.0); EOSINOPHILS # 0.4 10^3/ul (0.0-0.5); HEMATOCRIT 33.9 % (42.0-52.0); HEMOGLOBIN 11.2 g/dl (14.0-18.0); LYMPHOCYTES % 12.9 % (15.0-51.0); MEAN CORPUSCULAR HEMOGLOBIN 28.6 pg (29.0-33.0); MEAN CORPUSCULAR VOLUME 86.7 fl (82.0-101.0); MEAN PLATELET VOLUME 10.9 fl (7.4-10.4); MONOCYTE # 0.9 10^3/ul (0.3-0.9); NEUTROPHIL # 5.1 10^3/ul (1.6-7.5); PLATELET COUNT 250 10^3/UL (140-415); RED BLOOD COUNT 3.91 10^6/ul (4.70-6.10); RED CELL DISTRIBUTION WIDTH 13.9 % (11.5-14.5)
[2017-11-06 08:15] LABS: ANION GAP 13 (8-16); BLOOD UREA NITROGEN 79 mg/dl (7-20); CALCIUM 8.5 mg/dl (8.4-10.2); CARBON DIOXIDE 25 mmol/L (21-31); CHLORIDE 107 mmol/L (97-110); CREATININE 2.89 mg/dl (0.61-1.24); GLUCOSE 171 mg/dl (70-220); POTASSIUM 4.4 mmol/L (3.5-5.1); SODIUM 141 mmol/L (135-144)
[2017-11-06] MEDS: ALBUTEROL/IPRATROPIUM (NEB) 3 ML AMP HHN ×3 (08:40→19:42)
[2017-11-06] MEDS: HEPARIN 5,000 UNIT/0.5 ML VIAL SC ×2 (08:46→20:32)
[2017-11-06] MEDS: INSULIN GLARGINE [LANtus] 3 ML PEN SC (08:46)
[2017-11-06] MEDS: INSULIN ASPART [NOVOLOG] 3 ML PEN SC ×7 (08:47→20:48)
[2017-11-06] MEDS: FISH OIL 1,000 MG CAP PO ×2 (09:08→20:25)
[2017-11-06] MEDS: ISOSORBIDE MONONITRATE(SR)30 MG TAB PO (09:08)
[2017-11-06] MEDS: DOXYCYCLINE 100 MG TAB PO ×2 (09:08→20:25)
[2017-11-06] MEDS: BENZONATATE 100 MG CAP PO ×3 (09:08→20:25)
[2017-11-06] MEDS: FEBUXOSTAT 40 MG TABLET PO (09:09)
[2017-11-06] MEDS: ASPIRIN 81 MG TAB PO (09:09)
[2017-11-06] MEDS: CLOPIDOGREL 75 MG TAB PO (09:09)
[2017-11-06] MEDS: AMLODIPINE 5 MG TAB PO (09:09)
[2017-11-06] MEDS: GABAPENTIN 100 MG CAP PO ×3 (09:09→20:27)
[2017-11-06] MEDS: CITRIC ACID/SODIUM CITRATE 15 ML CUP PO ×2 (09:11→20:25)
[2017-11-06] MEDS: ATORVASTATIN 20 MG TAB PO (20:25)
[2017-11-07] MEDS: ACCU-CHEK XX (02:00)
[2017-11-07] MEDS: PANTOPRAZOLE (EC) 40 MG TAB PO (05:22)
[2017-11-07] MEDS: ALBUTEROL/IPRATROPIUM (NEB) 3 ML AMP HHN ×3 (08:00→20:51)
[2017-11-07] MEDS: INSULIN GLARGINE [LANtus] 3 ML PEN SC ×2 (08:56→09:46)
[2017-11-07] MEDS: INSULIN ASPART [NOVOLOG] 3 ML PEN SC ×6 (08:57→21:29)
[2017-11-07] MEDS: HEPARIN 5,000 UNIT/0.5 ML VIAL SC ×2 (08:58→21:28)
[2017-11-07] MEDS: CLOPIDOGREL 75 MG TAB PO (08:59)
[2017-11-07] MEDS: AMLODIPINE 5 MG TAB PO (08:59)
[2017-11-07] MEDS: GABAPENTIN 100 MG CAP PO ×3 (09:00→20:44)
[2017-11-07] MEDS: ISOSORBIDE MONONITRATE(SR)30 MG TAB PO (09:00)
[2017-11-07] MEDS: BENZONATATE 100 MG CAP PO ×3 (09:00→20:44)
[2017-11-07] MEDS: FISH OIL 1,000 MG CAP PO ×2 (09:00→20:44)
[2017-11-07] MEDS: DOXYCYCLINE 100 MG TAB PO ×2 (09:00→20:44)
[2017-11-07] MEDS: ASPIRIN 81 MG TAB PO (09:00)
[2017-11-07] MEDS: FEBUXOSTAT 40 MG TABLET PO (09:00)
[2017-11-07] MEDS: CITRIC ACID/SODIUM CITRATE 15 ML CUP PO ×2 (09:02→20:45)
[2017-11-07 10:38] LABS: ADD MAN DIFF? NO
[2017-11-07 10:40] LABS: WHITE BLOOD COUNT 6.3 10^3/ul (4.8-10.8)
[2017-11-07 10:40] LABS: BASOPHIL # 0.1 10^3/ul (0.0-0.1); BASOPHILS % 1.1 % (0.0-2.0); EOSINOPHILS # 0.4 10^3/ul (0.0-0.5); EOSINOPHILS % 6.8 % (0.0-7.0); HEMATOCRIT 36.1 % (42.0-52.0); HEMOGLOBIN 11.9 g/dl (14.0-18.0); LYMPHOCYTES # 1.1 10^3/ul (0.8-2.9); LYMPHOCYTES % 16.9 % (15.0-51.0); MEAN CORPUSCULAR HEMOGLOBIN 28.5 pg (29.0-33.0); MEAN CORPUSCULAR VOLUME 86.4 fl (82.0-101.0); MEAN PLATELET VOLUME 10.6 fl (7.4-10.4); MONOCYTE # 0.6 10^3/ul (0.3-0.9); MONOCYTES % 9.9 % (0.0-11.0); NEUTROPHIL # 4.1 10^3/ul (1.6-7.5); PLATELET COUNT 267 10^3/UL (140-415); RED BLOOD COUNT 4.18 10^6/ul (4.70-6.10); RED CELL DISTRIBUTION WIDTH 14.1 % (11.5-14.5)
[2017-11-07 11:16] LABS: ANION GAP 13 (8-16); BLOOD UREA NITROGEN 64 mg/dl (7-20); CARBON DIOXIDE 25 mmol/L (21-31); CHLORIDE 109 mmol/L (97-110); CREATININE 2.43 mg/dl (0.61-1.24); GLUCOSE 157 mg/dl (70-220); POTASSIUM 3.9 mmol/L (3.5-5.1); SODIUM 143 mmol/L (135-144)
[2017-11-07] MEDS: ATORVASTATIN 20 MG TAB PO (20:44)
[2017-11-08] MEDS: ACCU-CHEK XX (02:20)
[2017-11-08] MEDS: PANTOPRAZOLE (EC) 40 MG TAB PO (05:32)
[2017-11-08 07:43] LABS: ADD MAN DIFF? NO
[2017-11-08 07:47] LABS: BASOPHIL # 0.1 10^3/ul (0.0-0.1); BASOPHILS % 0.9 % (0.0-2.0); EOSINOPHILS # 0.5 10^3/ul (0.0-0.5); EOSINOPHILS % 6.6 % (0.0-7.0); HEMATOCRIT 34.3 % (42.0-52.0); HEMOGLOBIN 11.2 g/dl (14.0-18.0); LYMPHOCYTES # 1.1 10^3/ul (0.8-2.9); LYMPHOCYTES % 15.1 % (15.0-51.0); MEAN CORPUSCULAR HEMOGLOBIN 28.3 pg (29.0-33.0); MEAN CORPUSCULAR HGB CONC 32.7 g/dl (32.0-37.0); MEAN CORPUSCULAR VOLUME 86.6 fl (82.0-101.0); MEAN PLATELET VOLUME 10.5 fl (7.4-10.4); MONOCYTE # 0.8 10^3/ul (0.3-0.9); MONOCYTES % 10.4 % (0.0-11.0); NEUTROPHILS % 66.7 % (39.0-77.0); PLATELET COUNT 248 10^3/UL (140-415); RED BLOOD COUNT 3.96 10^6/ul (4.70-6.10); RED CELL DISTRIBUTION WIDTH 14.2 % (11.5-14.5)
[2017-11-08 07:47] LABS: WHITE BLOOD COUNT 7.4 10^3/ul (4.8-10.8)
[2017-11-08] MEDS: ALBUTEROL/IPRATROPIUM (NEB) 3 ML AMP HHN ×3 (08:03→19:46)
[2017-11-08] MEDS: DOCUSATE SODIUM 100 MG CAP PO (08:04)
[2017-11-08] MEDS: CITRIC ACID/SODIUM CITRATE 15 ML CUP PO ×2 (08:04→21:00)
[2017-11-08] MEDS: ASPIRIN 81 MG TAB PO (08:04)
[2017-11-08] MEDS: FISH OIL 1,000 MG CAP PO ×2 (08:04→21:19)
[2017-11-08] MEDS: FEBUXOSTAT 40 MG TABLET PO (08:04)
[2017-11-08] MEDS: GABAPENTIN 100 MG CAP PO ×3 (08:04→21:18)
[2017-11-08] MEDS: DOXYCYCLINE 100 MG TAB PO ×2 (08:04→21:19)
[2017-11-08] MEDS: BENZONATATE 100 MG CAP PO ×3 (08:05→21:18)
[2017-11-08] MEDS: CLOPIDOGREL 75 MG TAB PO (08:05)
[2017-11-08] MEDS: ISOSORBIDE MONONITRATE(SR)30 MG TAB PO (08:10)
[2017-11-08] MEDS: AMLODIPINE 5 MG TAB PO ×2 (08:11→21:19)
[2017-11-08] MEDS: HEPARIN 5,000 UNIT/0.5 ML VIAL SC ×2 (08:13→21:26)
[2017-11-08] MEDS: INSULIN ASPART [NOVOLOG] 3 ML PEN SC ×7 (08:14→21:00)
[2017-11-08] MEDS: INSULIN GLARGINE [LANtus] 3 ML PEN SC (08:15)
[2017-11-08 08:27] LABS: ANION GAP 11 (8-16); BLOOD UREA NITROGEN 58 mg/dl (7-20); CALCIUM 9.2 mg/dl (8.4-10.2); CARBON DIOXIDE 27 mmol/L (21-31); CHLORIDE 108 mmol/L (97-110); CREATININE 2.29 mg/dl (0.61-1.24); GLUCOSE 184 mg/dl (70-220); POTASSIUM 4.1 mmol/L (3.5-5.1); SODIUM 142 mmol/L (135-144)
[2017-11-08] MEDS: ATORVASTATIN 20 MG TAB PO (21:18)
[2017-11-09] MEDS: ACCU-CHEK XX (02:00)
[2017-11-09] MEDS: PANTOPRAZOLE (EC) 40 MG TAB PO (05:41)
[2017-11-09] MEDS: INSULIN ASPART [NOVOLOG] 3 ML PEN SC ×4 (08:00→12:32)
[2017-11-09] MEDS: INSULIN GLARGINE [LANtus] 3 ML PEN SC (08:22)
[2017-11-09] MEDS: HEPARIN 5,000 UNIT/0.5 ML VIAL SC (08:23)
[2017-11-09] MEDS: AMLODIPINE 5 MG TAB PO (08:23)
[2017-11-09] MEDS: FEBUXOSTAT 40 MG TABLET PO (08:23)
[2017-11-09] MEDS: FISH OIL 1,000 MG CAP PO (08:23)
[2017-11-09] MEDS: CLOPIDOGREL 75 MG TAB PO (08:23)
[2017-11-09] MEDS: DOXYCYCLINE 100 MG TAB PO (08:24)
[2017-11-09] MEDS: GABAPENTIN 100 MG CAP PO ×2 (08:24→12:32)
[2017-11-09] MEDS: ASPIRIN 81 MG TAB PO (08:24)
[2017-11-09] MEDS: ISOSORBIDE MONONITRATE(SR)30 MG TAB PO (08:24)
[2017-11-09] MEDS: BENZONATATE 100 MG CAP PO ×2 (08:24→12:32)
[2017-11-09] MEDS: CITRIC ACID/SODIUM CITRATE 15 ML CUP PO (08:25)
[2017-11-09] MEDS: ALBUTEROL/IPRATROPIUM (NEB) 3 ML AMP HHN (08:51)
[2017-11-09 09:33] LABS: ADD MAN DIFF? NO
[2017-11-09 09:38] LABS: BASOPHIL # 0.1 10^3/ul (0.0-0.1); BASOPHILS % 0.9 % (0.0-2.0); EOSINOPHILS # 0.6 10^3/ul (0.0-0.5); EOSINOPHILS % 7.5 % (0.0-7.0); HEMATOCRIT 41.4 % (42.0-52.0); HEMOGLOBIN 13.3 g/dl (14.0-18.0); LYMPHOCYTES # 1.2 10^3/ul (0.8-2.9); LYMPHOCYTES % 13.8 % (15.0-51.0); MEAN CORPUSCULAR HEMOGLOBIN 28.2 pg (29.0-33.0); MEAN CORPUSCULAR HGB CONC 32.1 g/dl (32.0-37.0); MEAN CORPUSCULAR VOLUME 87.7 fl (82.0-101.0); MEAN PLATELET VOLUME 10.3 fl (7.4-10.4); MONOCYTE # 0.7 10^3/ul (0.3-0.9); MONOCYTES % 8.5 % (0.0-11.0); NEUTROPHIL # 5.9 10^3/ul (1.6-7.5); PLATELET COUNT 285 10^3/UL (140-415); RED BLOOD COUNT 4.72 10^6/ul (4.70-6.10); RED CELL DISTRIBUTION WIDTH 13.9 % (11.5-14.5)
[2017-11-09 09:38] LABS: WHITE BLOOD COUNT 8.6 10^3/ul (4.8-10.8)
[2017-11-09 10:17] LABS: ALANINE AMINOTRANSFERASE 80 IU/L (13-69); ALBUMIN 3.5 g/dl (3.3-4.9); ALBUMIN/GLOBULIN RATIO 1.06; ALKALINE PHOSPHATASE 100 IU/L (42-121); ANION GAP 12 (8-16); ASPARTATE AMINO TRANSFERASE 68 IU/L (15-46); BILIRUBIN,INDIRECT 0.1 mg/dl (0-1.1); BILIRUBIN,TOTAL 0.1 mg/dl (0.2-1.3); BLOOD UREA NITROGEN 51 mg/dl (7-20); CALCIUM 9.9 mg/dl (8.4-10.2); CARBON DIOXIDE 29 mmol/L (21-31); CHLORIDE 107 mmol/L (97-110); CREATININE 2.42 mg/dl (0.61-1.24); GLUCOSE 114 mg/dl (70-220); POTASSIUM 4.2 mmol/L (3.5-5.1); SODIUM 144 mmol/L (135-144); TOTAL PROTEIN 6.8 g/dl (6.1-8.1)
[2017-11-09 10:21] LABS: MAGNESIUM 1.7 mg/dl (1.7-2.5)
== END 2017-11-09 16:22 | disposition home or self-care (01) | DRG 291 ==
LOC: E/R 03:40 → MS4 05:22
DX: I13.0 Hypertensive heart and chronic kidney disease with heart failure and stage 1 through stage 4 chronic kidney disease, or unspecified chronic kidney disease (principal); J96.01 Acute respiratory failure with hypoxia; N17.9 Acute kidney failure, unspecified; I50.23 Acute on chronic systolic (congestive) heart failure; E11.22 Type 2 diabetes mellitus with diabetic chronic kidney disease; E11.40 Type 2 diabetes mellitus with diabetic neuropathy, unspecified; N18.9 Chronic kidney disease, unspecified; I25.10 Atherosclerotic heart disease of native coronary artery without angina pectoris; E78.5 Hyperlipidemia, unspecified; M10.9 Gout, unspecified; I42.9 Cardiomyopathy, unspecified; N40.0 Benign prostatic hyperplasia without lower urinary tract symptoms; J02.9 Acute pharyngitis, unspecified; Z79.82 Long term (current) use of aspirin; Z79.4 Long term (current) use of insulin
CPT/HCPCS: 36415; 71045; 76775; 80048; 80053; 80061; 80076; 81003; 82550; 82570; 82962; 83036; 83735; 83880; 84100; 84300; 84443; 84484; 84560; 85025; 85610; 85730; 87040; 87081; 87086; 89190; 93005; 94640; 94664; 96374; 97110; 97116; 97162; 97530; 99285-25; J1940

== ENCOUNTER 2017-11-17 08:19 | Inpatient (IN) | payer OTHER, MEDICAID ==
[2017-11-17] MEDS ORDERED: NITROGLYCERIN (SL) 0.4 MG TAB SL (09:00)
[2017-11-17] MEDS: ASPIRIN 81 MG TAB PO (09:53)
[2017-11-17] MEDS: NITROGLYCERIN 2% 1 GM OINT PKT TD (09:53)
[2017-11-17] MEDS: FUROSEMIDE 40 MG INJ IV (09:53)
[2017-11-17] MEDS ORDERED: AZTREONAM 1 GM/NS (PMX) 50 ML IVPB (11:30)
[2017-11-17 11:54] LABS: ADD MAN DIFF? NO
[2017-11-17 11:56] LABS: BASOPHIL # 0.1 10^3/ul (0.0-0.1); BASOPHILS % 0.8 % (0.0-2.0); EOSINOPHILS # 0.7 10^3/ul (0.0-0.5); EOSINOPHILS % 8.8 % (0.0-7.0); HEMATOCRIT 40.3 % (42.0-52.0); HEMOGLOBIN 13.7 g/dl (14.0-18.0); LYMPHOCYTES % 12.9 % (15.0-51.0); MEAN CORPUSCULAR HEMOGLOBIN 28.6 pg (29.0-33.0); MEAN CORPUSCULAR VOLUME 84.1 fl (82.0-101.0); MEAN PLATELET VOLUME 9.7 fl (7.4-10.4); MONOCYTE # 0.8 10^3/ul (0.3-0.9); MONOCYTES % 10.7 % (0.0-11.0); NEUTROPHIL # 5.2 10^3/ul (1.6-7.5); NEUTROPHILS % 66.5 % (39.0-77.0); PLATELET COUNT 272 10^3/UL (140-415); RED BLOOD COUNT 4.79 10^6/ul (4.70-6.10); RED CELL DISTRIBUTION WIDTH 13.3 % (11.5-14.5)
[2017-11-17 11:56] LABS: WHITE BLOOD COUNT 7.8 10^3/ul (4.8-10.8)
[2017-11-17 12:17] LABS: ANION GAP 16 (8-16); BLOOD UREA NITROGEN 41 mg/dl (7-20); CALCIUM 9.3 mg/dl (8.4-10.2); CARBON DIOXIDE 23 mmol/L (21-31); CHLORIDE 107 mmol/L (97-110); CREATININE 2.19 mg/dl (0.61-1.24); GLUCOSE 104 mg/dl (70-220); POTASSIUM 3.8 mmol/L (3.5-5.1); SODIUM 142 mmol/L (135-144)
[2017-11-17 12:23] LABS: LACTIC ACID 1.3 mmol/L (0.5-2.0)
[2017-11-17 12:28] LABS: TROPONIN-I 0.028 ng/ml (0.00-0.12)
[2017-11-17] MEDS: AZTREONAM 1 GM in DEXTROSE 5% 50 ML IVPB (13:00)
[2017-11-17] MEDS ORDERED: ACETAMINOPHEN 325 MG TAB PO (14:00)
[2017-11-17] MEDS: VANCOMYCIN 1 GM (PMX) 250 ML IVPB (14:05)
[2017-11-17 17:40] LABS: LACTIC ACID 1.2 mmol/L (0.5-2.0)
[2017-11-17 17:43] LABS: CREATINE KINASE 55 IU/L (23-200)
[2017-11-17 17:53] LABS: CK INDEX 1.7; TROPONIN-I 0.032 ng/ml (0.00-0.12)
[2017-11-17 18:15] LABS: CK-MB 0.92 ng/ml (0.0-2.4)
[2017-11-17] MEDS ORDERED: traMADol 50 MG TAB PO (19:00)
[2017-11-17] MEDS: ONDANSETRON 4 MG INJ IV (19:34)
[2017-11-17] MEDS: LEVOFLOXACIN 750MG/D5W (PMX) 150 ML IVPB (20:20)
[2017-11-17] MEDS ORDERED: GLUCAGON 1 MG INJ IM (20:30)
[2017-11-17] MEDS ORDERED: DEXTROSE 50% 50 ML SYRINGE IV ×2 (20:30)
[2017-11-17] MEDS ORDERED: GLUCOSE GEL 15 GRAM TUBE PO ×2 (20:30)
[2017-11-17] MEDS ORDERED: GLUCOSE GEL 15 GRAM TUBE BUCCAL (20:30)
[2017-11-17 22:26] LABS: CREATINE KINASE 49 IU/L (23-200)
[2017-11-17 22:26] LABS: LACTIC ACID 1.1 mmol/L (0.5-2.0)
[2017-11-17 22:40] LABS: CK INDEX 1.8; CK-MB 0.87 ng/ml (0.0-2.4); TROPONIN-I 0.038 ng/ml (0.00-0.12)
[2017-11-18] MEDS: FISH OIL 1,000 MG CAP PO ×3 (00:12→21:51)
[2017-11-18] MEDS: ATORVASTATIN 20 MG TAB PO ×2 (00:14→21:52)
[2017-11-18] MEDS: TOPIRAMATE 100 MG TAB PO ×3 (00:14→21:51)
[2017-11-18] MEDS: AMLODIPINE 10 MG TAB PO ×2 (00:15→10:26)
[2017-11-18] MEDS: HEPARIN 5,000 UNIT/0.5 ML VIAL SC ×3 (00:16→21:53)
[2017-11-18] MEDS: INSULIN ASPART [NOVOLOG] 3 ML PEN SC ×8 (00:19→21:00)
[2017-11-18] MEDS: ACCU-CHEK XX (02:31)
[2017-11-18] MEDS: ONDANSETRON 4 MG INJ IV (02:43)
[2017-11-18 05:10] LABS: ADD MAN DIFF? NO
[2017-11-18 05:16] LABS: BASOPHIL # 0.1 10^3/ul (0.0-0.1); BASOPHILS % 0.7 % (0.0-2.0); EOSINOPHILS # 0.6 10^3/ul (0.0-0.5); EOSINOPHILS % 7.4 % (0.0-7.0); HEMATOCRIT 39.5 % (42.0-52.0); HEMOGLOBIN 13.1 g/dl (14.0-18.0); LYMPHOCYTES # 1.2 10^3/ul (0.8-2.9); LYMPHOCYTES % 14.4 % (15.0-51.0); MEAN CORPUSCULAR HEMOGLOBIN 28.1 pg (29.0-33.0); MEAN CORPUSCULAR HGB CONC 33.2 g/dl (32.0-37.0); MEAN CORPUSCULAR VOLUME 84.6 fl (82.0-101.0); MONOCYTES % 12.4 % (0.0-11.0); NEUTROPHIL # 5.3 10^3/ul (1.6-7.5); NEUTROPHILS % 64.9 % (39.0-77.0); PLATELET COUNT 305 10^3/UL (140-415); RED BLOOD COUNT 4.67 10^6/ul (4.70-6.10); RED CELL DISTRIBUTION WIDTH 13.4 % (11.5-14.5)
[2017-11-18 05:16] LABS: WHITE BLOOD COUNT 8.2 10^3/ul (4.8-10.8)
[2017-11-18 05:39] LABS: ANION GAP 14 (8-16); BLOOD UREA NITROGEN 42 mg/dl (7-20); CALCIUM 9.4 mg/dl (8.4-10.2); CARBON DIOXIDE 24 mmol/L (21-31); CHLORIDE 105 mmol/L (97-110); CREATININE 2.45 mg/dl (0.61-1.24); GLUCOSE 153 mg/dl (70-220); POTASSIUM 3.6 mmol/L (3.5-5.1); SODIUM 139 mmol/L (135-144)
[2017-11-18] MEDS: PANTOPRAZOLE (EC) 40 MG TAB PO (05:47)
[2017-11-18] MEDS: LIRAGLUTIDE 1.2 MG XX ×3 (07:30→23:16)
[2017-11-18] MEDS ORDERED: NON-FORMULARY/PATIENT OWN MED (Liraglutide (Victoza 2-Pak) 1.2 MG) SQ (09:00)
[2017-11-18] MEDS: INSULIN GLARGINE [LANtus] 3 ML PEN SC (09:03)
[2017-11-18] MEDS: ASPIRIN 81 MG TAB PO (09:05)
[2017-11-18] MEDS: FEBUXOSTAT 40 MG TABLET PO (09:06)
[2017-11-18] MEDS: ISOSORBIDE MONONITRATE(SR)30 MG TAB PO (10:23)
[2017-11-18] MEDS: CLOPIDOGREL 75 MG TAB PO (10:24)
[2017-11-18] MEDS: ISOSORBIDE DINITRATE 20 MG TAB PO ×2 (13:28→21:51)
[2017-11-18] MEDS: ZOLPIDEM 5 MG TAB PO (23:21)
[2017-11-19] MEDS: ACCU-CHEK XX (02:00)
[2017-11-19 05:02] LABS: ADD MAN DIFF? NO
[2017-11-19 05:14] LABS: WHITE BLOOD COUNT 7.6 10^3/ul (4.8-10.8)
[2017-11-19 05:14] LABS: BASOPHIL # 0.1 10^3/ul (0.0-0.1); BASOPHILS % 0.9 % (0.0-2.0); EOSINOPHILS # 0.6 10^3/ul (0.0-0.5); HEMATOCRIT 35.2 % (42.0-52.0); HEMOGLOBIN 11.9 g/dl (14.0-18.0); LYMPHOCYTES # 1.7 10^3/ul (0.8-2.9); LYMPHOCYTES % 22.3 % (15.0-51.0); MEAN CORPUSCULAR HEMOGLOBIN 28.3 pg (29.0-33.0); MEAN CORPUSCULAR HGB CONC 33.8 g/dl (32.0-37.0); MEAN CORPUSCULAR VOLUME 83.8 fl (82.0-101.0); MEAN PLATELET VOLUME 10.2 fl (7.4-10.4); MONOCYTE # 0.9 10^3/ul (0.3-0.9); MONOCYTES % 12.4 % (0.0-11.0); NEUTROPHIL # 4.3 10^3/ul (1.6-7.5); NEUTROPHILS % 56.1 % (39.0-77.0); PLATELET COUNT 287 10^3/UL (140-415)
[2017-11-19 05:47] LABS: ANION GAP 15 (8-16); BLOOD UREA NITROGEN 57 mg/dl (7-20); CALCIUM 9.1 mg/dl (8.4-10.2); CARBON DIOXIDE 23 mmol/L (21-31); CHLORIDE 104 mmol/L (97-110); CREATININE 3.44 mg/dl (0.61-1.24); GLUCOSE 129 mg/dl (70-220); POTASSIUM 3.8 mmol/L (3.5-5.1); SODIUM 138 mmol/L (135-144)
[2017-11-19] MEDS: PANTOPRAZOLE (EC) 40 MG TAB PO (06:36)
[2017-11-19] MEDS: LIRAGLUTIDE 1.2 MG XX ×3 (07:30→23:30)
[2017-11-19] MEDS: INSULIN ASPART [NOVOLOG] 3 ML PEN SC ×7 (07:35→21:23)
[2017-11-19] MEDS: FISH OIL 1,000 MG CAP PO ×2 (09:26→21:14)
[2017-11-19] MEDS: FEBUXOSTAT 40 MG TABLET PO (09:27)
[2017-11-19] MEDS: TOPIRAMATE 100 MG TAB PO ×2 (09:27→21:15)
[2017-11-19] MEDS: ISOSORBIDE DINITRATE 20 MG TAB PO ×3 (09:28→22:42)
[2017-11-19] MEDS: ASPIRIN 81 MG TAB PO (09:28)
[2017-11-19] MEDS: HEPARIN 5,000 UNIT/0.5 ML VIAL SC ×2 (09:32→21:17)
[2017-11-19] MEDS: INSULIN GLARGINE [LANtus] 3 ML PEN SC (10:18)
[2017-11-19] MEDS: CLOPIDOGREL 75 MG TAB PO (13:16)
[2017-11-19] MEDS: AMLODIPINE 10 MG TAB PO (13:19)
[2017-11-19 15:44] LABS: ANION GAP 17 (8-16); BLOOD UREA NITROGEN 59 mg/dl (7-20); CALCIUM 9.3 mg/dl (8.4-10.2); CARBON DIOXIDE 21 mmol/L (21-31); CHLORIDE 105 mmol/L (97-110); CREATININE 3.72 mg/dl (0.61-1.24); GLUCOSE 71 mg/dl (70-220); POTASSIUM 3.9 mmol/L (3.5-5.1); SODIUM 139 mmol/L (135-144)
[2017-11-19 17:19] LABS: ADD MAN DIFF? NO
[2017-11-19 17:22] LABS: WHITE BLOOD COUNT 10.6 10^3/ul (4.8-10.8)
[2017-11-19 17:22] LABS: BASOPHIL # 0.1 10^3/ul (0.0-0.1); BASOPHILS % 0.6 % (0.0-2.0); EOSINOPHILS # 0.6 10^3/ul (0.0-0.5); EOSINOPHILS % 5.5 % (0.0-7.0); HEMATOCRIT 37.2 % (42.0-52.0); HEMOGLOBIN 12.5 g/dl (14.0-18.0); LYMPHOCYTES # 0.9 10^3/ul (0.8-2.9); LYMPHOCYTES % 8.6 % (15.0-51.0); MEAN CORPUSCULAR HEMOGLOBIN 28.4 pg (29.0-33.0); MEAN CORPUSCULAR HGB CONC 33.6 g/dl (32.0-37.0); MEAN CORPUSCULAR VOLUME 84.5 fl (82.0-101.0); MEAN PLATELET VOLUME 9.7 fl (7.4-10.4); MONOCYTE # 1.2 10^3/ul (0.3-0.9); MONOCYTES % 10.9 % (0.0-11.0); NEUTROPHIL # 7.8 10^3/ul (1.6-7.5); PLATELET COUNT 325 10^3/UL (140-415); RED CELL DISTRIBUTION WIDTH 13.8 % (11.5-14.5)
[2017-11-19] MEDS: LEVOFLOXACIN 500 MG TAB PO (20:06)
[2017-11-19] MEDS: ATORVASTATIN 20 MG TAB PO (21:14)
[2017-11-20] MEDS: ACCU-CHEK XX (02:00)
[2017-11-20] MEDS: PANTOPRAZOLE (EC) 40 MG TAB PO (05:20)
[2017-11-20] MEDS: LIRAGLUTIDE 1.2 MG XX ×3 (07:30→23:30)
[2017-11-20] MEDS: INSULIN ASPART [NOVOLOG] 3 ML PEN SC ×7 (08:00→20:05)
[2017-11-20] MEDS: HEPARIN 5,000 UNIT/0.5 ML VIAL SC ×2 (08:14→20:10)
[2017-11-20] MEDS: INSULIN GLARGINE [LANtus] 3 ML PEN SC (08:15)
[2017-11-20 08:16] LABS: ADD MAN DIFF? NO
[2017-11-20 08:17] LABS: BASOPHIL # 0.1 10^3/ul (0.0-0.1); BASOPHILS % 0.7 % (0.0-2.0); EOSINOPHILS # 0.5 10^3/ul (0.0-0.5); HEMATOCRIT 35.5 % (42.0-52.0); HEMOGLOBIN 12.1 g/dl (14.0-18.0); LYMPHOCYTES # 1.3 10^3/ul (0.8-2.9); MEAN CORPUSCULAR HEMOGLOBIN 28.7 pg (29.0-33.0); MEAN CORPUSCULAR HGB CONC 34.1 g/dl (32.0-37.0); MEAN CORPUSCULAR VOLUME 84.1 fl (82.0-101.0); MEAN PLATELET VOLUME 10.1 fl (7.4-10.4); MONOCYTE # 0.9 10^3/ul (0.3-0.9); MONOCYTES % 12.7 % (0.0-11.0); NEUTROPHIL # 4.5 10^3/ul (1.6-7.5); NEUTROPHILS % 61.3 % (39.0-77.0); PLATELET COUNT 267 10^3/UL (140-415); RED BLOOD COUNT 4.22 10^6/ul (4.70-6.10)
[2017-11-20 08:17] LABS: WHITE BLOOD COUNT 7.4 10^3/ul (4.8-10.8)
[2017-11-20] MEDS: FEBUXOSTAT 40 MG TABLET PO (08:17)
[2017-11-20] MEDS: AMLODIPINE 10 MG TAB PO (08:17)
[2017-11-20] MEDS: CLOPIDOGREL 75 MG TAB PO (08:17)
[2017-11-20] MEDS: ASPIRIN 81 MG TAB PO (08:17)
[2017-11-20] MEDS: FISH OIL 1,000 MG CAP PO ×2 (08:17→20:06)
[2017-11-20] MEDS: ISOSORBIDE DINITRATE 20 MG TAB PO ×3 (08:18→20:06)
[2017-11-20 08:55] LABS: ANION GAP 15 (8-16); BLOOD UREA NITROGEN 63 mg/dl (7-20); CALCIUM 8.9 mg/dl (8.4-10.2); CARBON DIOXIDE 22 mmol/L (21-31); CHLORIDE 106 mmol/L (97-110); CREATININE 3.43 mg/dl (0.61-1.24); GLUCOSE 102 mg/dl (70-220); POTASSIUM 3.5 mmol/L (3.5-5.1); SODIUM 139 mmol/L (135-144)
[2017-11-20] MEDS: TOPIRAMATE 100 MG TAB PO ×2 (08:57→20:07)
[2017-11-20] MEDS: ATORVASTATIN 20 MG TAB PO (20:06)
[2017-11-21] MEDS: ACCU-CHEK XX (02:00)
[2017-11-21] MEDS: PANTOPRAZOLE (EC) 40 MG TAB PO (06:31)
[2017-11-21 06:39] LABS: ADD MAN DIFF? NO
[2017-11-21 06:53] LABS: BASOPHIL # 0.1 10^3/ul (0.0-0.1); BASOPHILS % 0.7 % (0.0-2.0); EOSINOPHILS # 0.4 10^3/ul (0.0-0.5); EOSINOPHILS % 5.4 % (0.0-7.0); HEMATOCRIT 36.8 % (42.0-52.0); HEMOGLOBIN 12.4 g/dl (14.0-18.0); LYMPHOCYTES # 1.1 10^3/ul (0.8-2.9); MEAN CORPUSCULAR HEMOGLOBIN 28.6 pg (29.0-33.0); MEAN CORPUSCULAR HGB CONC 33.7 g/dl (32.0-37.0); MEAN CORPUSCULAR VOLUME 84.8 fl (82.0-101.0); MEAN PLATELET VOLUME 10.1 fl (7.4-10.4); MONOCYTES % 13.3 % (0.0-11.0); NEUTROPHIL # 4.8 10^3/ul (1.6-7.5); NEUTROPHILS % 65.3 % (39.0-77.0); PLATELET COUNT 287 10^3/UL (140-415); RED BLOOD COUNT 4.34 10^6/ul (4.70-6.10); RED CELL DISTRIBUTION WIDTH 13.8 % (11.5-14.5)
[2017-11-21 06:53] LABS: WHITE BLOOD COUNT 7.4 10^3/ul (4.8-10.8)
[2017-11-21] MEDS: LIRAGLUTIDE 1.2 MG XX ×3 (07:11→23:30)
[2017-11-21 07:30] LABS: ANION GAP 16 (8-16); BLOOD UREA NITROGEN 62 mg/dl (7-20); CARBON DIOXIDE 20 mmol/L (21-31); CHLORIDE 110 mmol/L (97-110); CREATININE 3.14 mg/dl (0.61-1.24); GLUCOSE 99 mg/dl (70-220); MAGNESIUM 2.1 mg/dl (1.7-2.5); PHOSPHORUS 3.8 mg/dl (2.5-4.9); POTASSIUM 3.6 mmol/L (3.5-5.1); SODIUM 142 mmol/L (135-144)
[2017-11-21] MEDS: INSULIN ASPART [NOVOLOG] 3 ML PEN SC ×7 (07:42→21:00)
[2017-11-21] MEDS: INSULIN GLARGINE [LANtus] 3 ML PEN SC (07:53)
[2017-11-21] MEDS: CLOPIDOGREL 75 MG TAB PO (08:12)
[2017-11-21] MEDS: AMLODIPINE 10 MG TAB PO (08:12)
[2017-11-21] MEDS: FEBUXOSTAT 40 MG TABLET PO (08:12)
[2017-11-21] MEDS: ASPIRIN 81 MG TAB PO (08:12)
[2017-11-21] MEDS: ISOSORBIDE DINITRATE 20 MG TAB PO ×3 (08:12→21:16)
[2017-11-21] MEDS: TOPIRAMATE 100 MG TAB PO ×2 (08:13→21:16)
[2017-11-21] MEDS: FISH OIL 1,000 MG CAP PO ×2 (08:13→21:16)
[2017-11-21] MEDS: HEPARIN 5,000 UNIT/0.5 ML VIAL SC ×2 (08:16→21:20)
[2017-11-21] MEDS: ATORVASTATIN 20 MG TAB PO (21:16)
[2017-11-21] MEDS: LEVOFLOXACIN 500 MG TAB PO (21:16)
[2017-11-22] MEDS: ACCU-CHEK XX (02:00)
[2017-11-22] MEDS: PANTOPRAZOLE (EC) 40 MG TAB PO (06:33)
[2017-11-22] MEDS: LIRAGLUTIDE 1.2 MG XX ×3 (07:30→23:30)
[2017-11-22] MEDS: INSULIN ASPART [NOVOLOG] 3 ML PEN SC ×7 (08:00→20:16)
[2017-11-22] MEDS: FISH OIL 1,000 MG CAP PO ×2 (09:41→20:51)
[2017-11-22] MEDS: FEBUXOSTAT 40 MG TABLET PO (09:42)
[2017-11-22] MEDS: CLOPIDOGREL 75 MG TAB PO (09:42)
[2017-11-22] MEDS: TOPIRAMATE 100 MG TAB PO ×2 (09:42→20:51)
[2017-11-22] MEDS: ISOSORBIDE DINITRATE 20 MG TAB PO ×3 (09:42→20:51)
[2017-11-22] MEDS: ASPIRIN 81 MG TAB PO (09:43)
[2017-11-22] MEDS: AMLODIPINE 10 MG TAB PO (09:43)
[2017-11-22] MEDS: INSULIN GLARGINE [LANtus] 3 ML PEN SC (09:46)
[2017-11-22] MEDS: HEPARIN 5,000 UNIT/0.5 ML VIAL SC ×2 (09:47→20:54)
[2017-11-22 10:07] LABS: ANION GAP 18 (8-16); BLOOD UREA NITROGEN 60 mg/dl (7-20); CALCIUM 9.2 mg/dl (8.4-10.2); CARBON DIOXIDE 20 mmol/L (21-31); CHLORIDE 108 mmol/L (97-110); CREATININE 3.14 mg/dl (0.61-1.24); GLUCOSE 115 mg/dl (70-220); MAGNESIUM 2.2 mg/dl (1.7-2.5); PHOSPHORUS 3.5 mg/dl (2.5-4.9); POTASSIUM 3.7 mmol/L (3.5-5.1); SODIUM 142 mmol/L (135-144)
[2017-11-22] MEDS: ATORVASTATIN 20 MG TAB PO (20:51)
[2017-11-23] MEDS: ACCU-CHEK XX (02:00)
[2017-11-23] MEDS: PANTOPRAZOLE (EC) 40 MG TAB PO (04:46)
[2017-11-23] MEDS: LIRAGLUTIDE 1.2 MG XX ×2 (07:30→15:30)
[2017-11-23 07:37] LABS: ADD MAN DIFF? NO
[2017-11-23 07:49] LABS: WHITE BLOOD COUNT 7.1 10^3/ul (4.8-10.8)
[2017-11-23 07:49] LABS: BASOPHIL # 0.1 10^3/ul (0.0-0.1); EOSINOPHILS # 0.4 10^3/ul (0.0-0.5); EOSINOPHILS % 5.5 % (0.0-7.0); HEMATOCRIT 36.1 % (42.0-52.0); HEMOGLOBIN 12.2 g/dl (14.0-18.0); LYMPHOCYTES # 1.4 10^3/ul (0.8-2.9); LYMPHOCYTES % 19.5 % (15.0-51.0); MEAN CORPUSCULAR HEMOGLOBIN 28.8 pg (29.0-33.0); MEAN CORPUSCULAR HGB CONC 33.8 g/dl (32.0-37.0); MEAN CORPUSCULAR VOLUME 85.1 fl (82.0-101.0); MEAN PLATELET VOLUME 10.1 fl (7.4-10.4); MONOCYTES % 13.3 % (0.0-11.0); NEUTROPHIL # 4.3 10^3/ul (1.6-7.5); NEUTROPHILS % 60.4 % (39.0-77.0); PLATELET COUNT 272 10^3/UL (140-415); RED BLOOD COUNT 4.24 10^6/ul (4.70-6.10); RED CELL DISTRIBUTION WIDTH 14.2 % (11.5-14.5)
[2017-11-23] MEDS: INSULIN ASPART [NOVOLOG] 3 ML PEN SC ×4 (08:00→11:47)
[2017-11-23 08:01] LABS: ANION GAP 13 (8-16); BLOOD UREA NITROGEN 61 mg/dl (7-20); CALCIUM 9.5 mg/dl (8.4-10.2); CARBON DIOXIDE 20 mmol/L (21-31); CHLORIDE 111 mmol/L (97-110); CREATININE 3.02 mg/dl (0.61-1.24); GLUCOSE 106 mg/dl (70-220); MAGNESIUM 2.2 mg/dl (1.7-2.5); PHOSPHORUS 3.9 mg/dl (2.5-4.9); POTASSIUM 3.6 mmol/L (3.5-5.1); SODIUM 140 mmol/L (135-144)
[2017-11-23 08:11] LABS: URIC ACID 6.6 mg/dl (3.1-7.9)
[2017-11-23 08:19] LABS: B-TYPE NATRIURETIC PEPTIDE 1550 PG/ML (0-125)
[2017-11-23] MEDS: INSULIN GLARGINE [LANtus] 3 ML PEN SC (08:34)
[2017-11-23] MEDS: FEBUXOSTAT 40 MG TABLET PO (09:37)
[2017-11-23] MEDS: CLOPIDOGREL 75 MG TAB PO (09:38)
[2017-11-23] MEDS: TOPIRAMATE 100 MG TAB PO (09:38)
[2017-11-23] MEDS: FISH OIL 1,000 MG CAP PO (09:39)
[2017-11-23] MEDS: AMLODIPINE 10 MG TAB PO (09:39)
[2017-11-23] MEDS: ASPIRIN 81 MG TAB PO (09:39)
[2017-11-23] MEDS: ISOSORBIDE DINITRATE 20 MG TAB PO ×2 (09:39→13:09)
[2017-11-23] MEDS: HEPARIN 5,000 UNIT/0.5 ML VIAL SC (09:41)
== END 2017-11-23 17:30 | disposition home or self-care (01) | DRG 194 ==
LOC: E/R 08:19 → MS4 11-19 23:26 → MS3 13:42
DX: J18.9 Pneumonia, unspecified organism (principal); N18.4 Chronic kidney disease, stage 4 (severe); I42.8 Other cardiomyopathies; I13.0 Hypertensive heart and chronic kidney disease with heart failure and stage 1 through stage 4 chronic kidney disease, or unspecified chronic kidney disease; I50.22 Chronic systolic (congestive) heart failure; E11.22 Type 2 diabetes mellitus with diabetic chronic kidney disease; E78.5 Hyperlipidemia, unspecified; M1A.9XX0 Chronic gout, unspecified, without tophus (tophi); Z95.5 Presence of coronary angioplasty implant and graft; N40.0 Benign prostatic hyperplasia without lower urinary tract symptoms; Z87.891 Personal history of nicotine dependence; I25.118 Atherosclerotic heart disease of native coronary artery with other forms of angina pectoris; I16.0 Hypertensive urgency; E83.89 Other disorders of mineral metabolism; M89.8X9 Other specified disorders of bone, unspecified site
CPT/HCPCS: 36415; 71045; 76775; 80048; 82550; 82553; 82962; 83605; 83735; 83880; 84100; 84484; 84560; 85025; 87040; 93005; 96365; 96366; 96367; 96375; 99285-25

== ENCOUNTER 2018-11-05 09:32 | Inpatient (IN) | payer OTHER, MEDICAID ==
[2018-11-05] MEDS: ASPIRIN 325 MG TAB PO (10:33)
[2018-11-05] MEDS: NITROGLYCERIN 2% 1 GM OINT PKT TD (10:35)
[2018-11-05] MEDS: FUROSEMIDE 40 MG INJ IV (10:36)
[2018-11-05 11:27] LABS: ADD MAN DIFF? NO
[2018-11-05 11:29] LABS: BASOPHIL # 0.1 10^3/ul (0.0-0.1); BASOPHILS % 0.8 % (0.0-2.0); EOSINOPHILS # 0.4 10^3/ul (0.0-0.5); EOSINOPHILS % 4.3 % (0.0-7.0); HEMATOCRIT 41.9 % (42.0-52.0); HEMOGLOBIN 14.1 g/dl (14.0-18.0); LYMPHOCYTES # 0.8 10^3/ul (0.8-2.9); LYMPHOCYTES % 9.4 % (15.0-51.0); MEAN CORPUSCULAR HEMOGLOBIN 28.4 pg (29.0-33.0); MEAN CORPUSCULAR HGB CONC 33.7 g/dl (32.0-37.0); MEAN CORPUSCULAR VOLUME 84.5 fl (82.0-101.0); MEAN PLATELET VOLUME 11.1 fl (7.4-10.4); MONOCYTE # 0.8 10^3/ul (0.3-0.9); MONOCYTES % 9.2 % (0.0-11.0); NEUTROPHIL # 6.5 10^3/ul (1.6-7.5); NEUTROPHILS % 76.1 % (39.0-77.0); PLATELET COUNT 295 10^3/UL (140-415); RED BLOOD COUNT 4.96 10^6/ul (4.70-6.10); RED CELL DISTRIBUTION WIDTH 12.9 % (11.5-14.5)
[2018-11-05 11:29] LABS: WHITE BLOOD COUNT 8.6 10^3/ul (4.8-10.8)
[2018-11-05 11:35] LABS: INR 0.87; PARTIAL THROMBOPLASTIN TIME 29.6 Sec (23.0-35.0); PROTIME 11.9 Sec (11.9-14.9); PT RATIO 0.9
[2018-11-05 11:45] LABS: ALANINE AMINOTRANSFERASE 21 IU/L (13-69); ALKALINE PHOSPHATASE 133 IU/L (42-121); ANION GAP 12 (5-13); ASPARTATE AMINO TRANSFERASE 24 IU/L (15-46); BILIRUBIN,INDIRECT 0.6 mg/dl (0-1.1); BILIRUBIN,TOTAL 0.6 mg/dl (0.2-1.3); BLOOD UREA NITROGEN 32 mg/dl (7-20); CALCIUM 9.5 mg/dl (8.4-10.2); CARBON DIOXIDE 28 mmol/L (21-31); CHLORIDE 96 mmol/L (97-110); CREATININE 2.32 mg/dl (0.61-1.24); GLUCOSE 316 mg/dl (70-220); SODIUM 136 mmol/L (135-144)
[2018-11-05 11:46] LABS: ALBUMIN 4.1 g/dl (3.3-4.9); ALBUMIN/GLOBULIN RATIO 1.28; TOTAL PROTEIN 7.3 g/dl (6.1-8.1)
[2018-11-05 11:55] LABS: B-TYPE NATRIURETIC PEPTIDE 18400 PG/ML (0-125); TROPONIN-I 0.051 ng/ml (0.000-0.120)
[2018-11-05] MEDS ORDERED: NACL 0.9% 3 ML SYG IV (13:00)
[2018-11-05] MEDS ORDERED: ONDANSETRON 4 MG INJ IV (13:00)
[2018-11-05] MEDS ORDERED: morphine 4 MG/ML VIAL IV (13:00)
[2018-11-05] MEDS ORDERED: LORAZEPAM 0.5 MG TAB PO (13:00)
[2018-11-05] MEDS ORDERED: ACETAMINOPHEN 325 MG TAB PO ×2 (13:00)
[2018-11-05] MEDS ORDERED: ALBUTEROL/IPRATROPIUM (NEB) 3 ML AMP HHN (13:30)
[2018-11-05] MEDS: ENALAPRILAT 1.25 MG INJ IV (13:36)
[2018-11-05] MEDS: ALBUTEROL/IPRATROPIUM (NEB) 3 ML AMP HHN ×2 (14:00→20:12)
[2018-11-05] MEDS: LEVOFLOXACIN 500MG/D5W (PMX) 100 ML IVPB (15:46)
[2018-11-05] MEDS: HEPARIN 5,000 UNIT/1 ML VIAL SC ×2 (16:32→21:34)
[2018-11-05 17:00] LABS: TROPONIN-I 0.055 ng/ml (0.000-0.120)
[2018-11-05] MEDS: INSULIN ASPART [NOVOLOG] 3 ML PEN SC ×3 (17:32→21:00)
[2018-11-05] MEDS ORDERED: FUROSEMIDE 20 MG INJ IV (18:00)
[2018-11-05] MEDS: FUROSEMIDE 20 MG INJ IV (18:35)
[2018-11-05 18:40] LABS: ADD UMIC YES; UR ASCORBIC ACID NEGATIVE (NEGATIVE); UR BILIRUBIN (Dip) NEGATIVE (NEGATIVE); UR BLOOD (Dip) 1+ mg/dL (NEGATIVE); UR CLARITY CLEAR (CLEAR); UR COLOR STRAW (YELLOW); UR GLUCOSE (Dip) 2+ mg/dL (NEGATIVE); UR KETONES (Dip) NEGATIVE (NEGATIVE); UR LEUKOCYTE ESTERASE (Dip) NEGATIVE Leu/ul (NEGATIVE); UR MUCUS FEW /HPF (NONE SEEN); UR NITRITE (Dip) NEGATIVE (NEGATIVE); UR RBC 7 /HPF (0-5); UR SPECIFIC GRAVITY (Dip) 1.008 (1.003-1.030); UR TOTAL PROTEIN (Dip) 2+ mg/dl (NEGATIVE); UR UROBILINOGEN (Dip) NEGATIVE (NEGATIVE); UR WBC 1 /HPF (0-5)
[2018-11-05] MEDS: hydrALAzine 20 MG INJ IV (20:02)
[2018-11-05] MEDS: ATORVASTATIN 40 MG TAB PO (20:59)
[2018-11-05] MEDS: FISH OIL 1,000 MG CAP PO (21:00)
[2018-11-05] MEDS: INSULIN GLARGINE [LANTus] (100 UNITS/ML) SYG SC (21:17)
[2018-11-05 22:44] LABS: TROPONIN-I 0.075 ng/ml (0.000-0.120)
[2018-11-06] MEDS: ACCU-CHEK XX (02:00)
[2018-11-06] MEDS: PANTOPRAZOLE (EC) 40 MG TAB PO (05:35)
[2018-11-06] MEDS: FUROSEMIDE 20 MG INJ IV ×2 (05:37→17:07)
[2018-11-06] MEDS: HEPARIN 5,000 UNIT/1 ML VIAL SC ×3 (05:42→22:47)
[2018-11-06 06:03] LABS: ADD MAN DIFF? NO
[2018-11-06 06:13] LABS: WHITE BLOOD COUNT 8.1 10^3/ul (4.8-10.8)
[2018-11-06 06:13] LABS: BASOPHIL # 0.1 10^3/ul (0.0-0.1); BASOPHILS % 0.9 % (0.0-2.0); EOSINOPHILS # 0.4 10^3/ul (0.0-0.5); EOSINOPHILS % 4.3 % (0.0-7.0); HEMATOCRIT 37.1 % (42.0-52.0); HEMOGLOBIN 12.5 g/dl (14.0-18.0); LYMPHOCYTES # 1.1 10^3/ul (0.8-2.9); LYMPHOCYTES % 13.6 % (15.0-51.0); MEAN CORPUSCULAR HEMOGLOBIN 28.1 pg (29.0-33.0); MEAN CORPUSCULAR HGB CONC 33.7 g/dl (32.0-37.0); MEAN CORPUSCULAR VOLUME 83.4 fl (82.0-101.0); MEAN PLATELET VOLUME 10.8 fl (7.4-10.4); MONOCYTES % 12.1 % (0.0-11.0); NEUTROPHIL # 5.6 10^3/ul (1.6-7.5); NEUTROPHILS % 68.9 % (39.0-77.0); PLATELET COUNT 231 10^3/UL (140-415); RED BLOOD COUNT 4.45 10^6/ul (4.70-6.10); RED CELL DISTRIBUTION WIDTH 12.9 % (11.5-14.5)
[2018-11-06 06:40] LABS: ALANINE AMINOTRANSFERASE 16 IU/L (13-69); ALBUMIN 3.3 g/dl (3.3-4.9); ALBUMIN/GLOBULIN RATIO 1.22; ALKALINE PHOSPHATASE 94 IU/L (42-121); ANION GAP 10 (5-13); ASPARTATE AMINO TRANSFERASE 16 IU/L (15-46); BILIRUBIN,INDIRECT 0.5 mg/dl (0-1.1); BILIRUBIN,TOTAL 0.5 mg/dl (0.2-1.3); BLOOD UREA NITROGEN 42 mg/dl (7-20); CALCIUM 9.1 mg/dl (8.4-10.2); CARBON DIOXIDE 29 mmol/L (21-31); CHLORIDE 99 mmol/L (97-110); CHOL/HDL RATIO 2.8 RATIO; CHOLESTEROL 111 mg/dl (100-200); CREATININE 2.62 mg/dl (0.61-1.24); GLUCOSE 121 mg/dl (70-220); HDL CHOLESTEROL 39 mg/dl (31-75); LDL CHOLESTEROL,CALCULATED 48 mg/dl; POTASSIUM 3.4 mmol/L (3.5-5.1); SODIUM 138 mmol/L (135-144); TRIGLYCERIDES 120 mg/dl (0-149)
[2018-11-06 06:42] LABS: HEMOGLOBIN A1C 12.3 % (0-5.9)
[2018-11-06] MEDS: INSULIN ASPART [NOVOLOG] 3 ML PEN SC ×7 (07:29→21:00)
[2018-11-06 07:52] LABS: PHOSPHORUS 3.7 mg/dl (2.5-4.9)
[2018-11-06] MEDS: ASPIRIN (EC) 81 MG TAB PO (08:09)
[2018-11-06] MEDS: FISH OIL 1,000 MG CAP PO ×2 (08:09→21:06)
[2018-11-06] MEDS: CLOPIDOGREL 75 MG TAB PO (08:09)
[2018-11-06] MEDS: ALBUTEROL/IPRATROPIUM (NEB) 3 ML AMP HHN ×3 (08:24→20:18)
[2018-11-06] MEDS: hydrALAzine 20 MG INJ IV (19:57)
[2018-11-06] MEDS: ATORVASTATIN 40 MG TAB PO (21:06)
[2018-11-06] MEDS: INSULIN GLARGINE [LANTus] (100 UNITS/ML) SYG SC (21:13)
[2018-11-06] MEDS: MAGNESIUM HYDROXIDE 30ML CUP PO (22:40)
[2018-11-07] MEDS: ACCU-CHEK XX (02:00)
[2018-11-07 05:36] LABS: ADD MAN DIFF? NO
[2018-11-07 05:50] LABS: WHITE BLOOD COUNT 8.4 10^3/ul (4.8-10.8)
[2018-11-07 05:50] LABS: BASOPHIL # 0.1 10^3/ul (0.0-0.1); BASOPHILS % 0.8 % (0.0-2.0); EOSINOPHILS # 0.4 10^3/ul (0.0-0.5); HEMATOCRIT 40.2 % (42.0-52.0); HEMOGLOBIN 13.3 g/dl (14.0-18.0); LYMPHOCYTES # 1.3 10^3/ul (0.8-2.9); LYMPHOCYTES % 15.1 % (15.0-51.0); MEAN CORPUSCULAR HEMOGLOBIN 27.7 pg (29.0-33.0); MEAN CORPUSCULAR HGB CONC 33.1 g/dl (32.0-37.0); MEAN CORPUSCULAR VOLUME 83.6 fl (82.0-101.0); MEAN PLATELET VOLUME 10.7 fl (7.4-10.4); MONOCYTE # 1.1 10^3/ul (0.3-0.9); MONOCYTES % 12.7 % (0.0-11.0); NEUTROPHIL # 5.5 10^3/ul (1.6-7.5); NEUTROPHILS % 66.3 % (39.0-77.0); PLATELET COUNT 247 10^3/UL (140-415); RED BLOOD COUNT 4.81 10^6/ul (4.70-6.10)
[2018-11-07 06:01] LABS: ALANINE AMINOTRANSFERASE 20 IU/L (13-69); ALBUMIN 3.4 g/dl (3.3-4.9); ALBUMIN/GLOBULIN RATIO 1.17; ALKALINE PHOSPHATASE 89 IU/L (42-121); ANION GAP 9 (5-13); ASPARTATE AMINO TRANSFERASE 17 IU/L (15-46); BILIRUBIN,INDIRECT 0.5 mg/dl (0-1.1); BILIRUBIN,TOTAL 0.5 mg/dl (0.2-1.3); BLOOD UREA NITROGEN 56 mg/dl (7-20); CALCIUM 9.2 mg/dl (8.4-10.2); CARBON DIOXIDE 30 mmol/L (21-31); CHLORIDE 98 mmol/L (97-110); CREATININE 2.94 mg/dl (0.61-1.24); GLUCOSE 106 mg/dl (70-220); PHOSPHORUS 3.9 mg/dl (2.5-4.9); POTASSIUM 3.5 mmol/L (3.5-5.1); SODIUM 137 mmol/L (135-144); TOTAL PROTEIN 6.3 g/dl (6.1-8.1); URIC ACID 10.7 mg/dl (3.1-7.9)
[2018-11-07] MEDS: PANTOPRAZOLE (EC) 40 MG TAB PO (06:10)
[2018-11-07] MEDS: FUROSEMIDE 20 MG INJ IV ×2 (06:11→17:40)
[2018-11-07] MEDS: HEPARIN 5,000 UNIT/1 ML VIAL SC ×3 (06:30→21:33)
[2018-11-07] MEDS: MAGNESIUM HYDROXIDE 30ML CUP PO ×2 (08:29→20:20)
[2018-11-07] MEDS: CLOPIDOGREL 75 MG TAB PO (08:30)
[2018-11-07] MEDS: FISH OIL 1,000 MG CAP PO ×2 (08:30→20:20)
[2018-11-07] MEDS: ASPIRIN (EC) 81 MG TAB PO (08:30)
[2018-11-07] MEDS: INSULIN ASPART [NOVOLOG] 3 ML PEN SC ×7 (08:44→20:15)
[2018-11-07] MEDS: ALBUTEROL/IPRATROPIUM (NEB) 3 ML AMP HHN ×3 (08:52→21:45)
[2018-11-07] MEDS: LEVOFLOXACIN 500MG/D5W (PMX) 100 ML IVPB (13:26)
[2018-11-07 18:35] LABS: PTH CALCIUM 9.2 mg/dL (8.6-10.3)
[2018-11-07] MEDS: FEBUXOSTAT 40 MG TABLET PO (20:16)
[2018-11-07] MEDS: ATORVASTATIN 40 MG TAB PO (20:20)
[2018-11-07] MEDS: INSULIN GLARGINE [LANTus] (100 UNITS/ML) SYG SC (21:10)
[2018-11-08] MEDS: hydrALAzine 20 MG INJ IV (01:00)
[2018-11-08] MEDS: ACCU-CHEK XX (02:00)
[2018-11-08 05:15] LABS: ADD MAN DIFF? NO
[2018-11-08 05:24] LABS: WHITE BLOOD COUNT 8.7 10^3/ul (4.8-10.8)
[2018-11-08 05:24] LABS: BASOPHIL # 0.1 10^3/ul (0.0-0.1); BASOPHILS % 0.7 % (0.0-2.0); EOSINOPHILS # 0.4 10^3/ul (0.0-0.5); HEMATOCRIT 39.4 % (42.0-52.0); HEMOGLOBIN 13.2 g/dl (14.0-18.0); LYMPHOCYTES # 1.1 10^3/ul (0.8-2.9); MEAN CORPUSCULAR HGB CONC 33.5 g/dl (32.0-37.0); MEAN CORPUSCULAR VOLUME 83.7 fl (82.0-101.0); MEAN PLATELET VOLUME 10.8 fl (7.4-10.4); MONOCYTE # 1.1 10^3/ul (0.3-0.9); MONOCYTES % 12.6 % (0.0-11.0); NEUTROPHIL # 6.1 10^3/ul (1.6-7.5); NEUTROPHILS % 69.5 % (39.0-77.0); PLATELET COUNT 241 10^3/UL (140-415); RED BLOOD COUNT 4.71 10^6/ul (4.70-6.10); RED CELL DISTRIBUTION WIDTH 12.8 % (11.5-14.5)
[2018-11-08 05:55] LABS: ALANINE AMINOTRANSFERASE 19 IU/L (13-69); ALBUMIN 3.3 g/dl (3.3-4.9); ALBUMIN/GLOBULIN RATIO 1.13; ALKALINE PHOSPHATASE 86 IU/L (42-121); ANION GAP 9 (5-13); ASPARTATE AMINO TRANSFERASE 19 IU/L (15-46); BILIRUBIN,INDIRECT 0.4 mg/dl (0-1.1); BILIRUBIN,TOTAL 0.4 mg/dl (0.2-1.3); BLOOD UREA NITROGEN 69 mg/dl (7-20); CALCIUM 9.2 mg/dl (8.4-10.2); CARBON DIOXIDE 31 mmol/L (21-31); CHLORIDE 97 mmol/L (97-110); CREATININE 3.41 mg/dl (0.61-1.24); GLUCOSE 95 mg/dl (70-220); PHOSPHORUS 4.2 mg/dl (2.5-4.9); POTASSIUM 3.2 mmol/L (3.5-5.1); SODIUM 137 mmol/L (135-144); TOTAL PROTEIN 6.2 g/dl (6.1-8.1); URIC ACID 11.1 mg/dl (3.1-7.9)
[2018-11-08] MEDS: PANTOPRAZOLE (EC) 40 MG TAB PO (06:09)
[2018-11-08] MEDS: HEPARIN 5,000 UNIT/1 ML VIAL SC ×3 (06:16→22:00)
[2018-11-08] MEDS: MAGNESIUM HYDROXIDE 30ML CUP PO ×2 (08:15→21:37)
[2018-11-08] MEDS: FISH OIL 1,000 MG CAP PO ×2 (08:15→21:37)
[2018-11-08] MEDS: FEBUXOSTAT 40 MG TABLET PO (08:15)
[2018-11-08] MEDS: ASPIRIN (EC) 81 MG TAB PO (08:16)
[2018-11-08] MEDS: CLOPIDOGREL 75 MG TAB PO (08:16)
[2018-11-08] MEDS: FUROSEMIDE 20 MG INJ IV (08:17)
[2018-11-08] MEDS: INSULIN ASPART [NOVOLOG] 3 ML PEN SC ×7 (08:32→21:00)
[2018-11-08] MEDS: ALBUTEROL/IPRATROPIUM (NEB) 3 ML AMP HHN ×3 (09:12→20:19)
[2018-11-08 09:32] LABS: PTH INTACT 148 pg/mL (14-64)
[2018-11-08] MEDS ORDERED: morphine LIQ (10 MG/5 ML) CUP PO (10:30)
[2018-11-08] MEDS: POTASSIUM CHLORIDE (SR) 20 MEQ TAB PO (10:48)
[2018-11-08 17:05] LABS: CREATININE,URINE RANDOM 51.03 mg/dl (20-370); PROTEIN/CREAT RATIO 3.35 RATIO
[2018-11-08] MEDS: ATORVASTATIN 40 MG TAB PO (21:37)
[2018-11-08] MEDS: INSULIN GLARGINE [LANTus] (100 UNITS/ML) SYG SC (22:01)
[2018-11-09] MEDS: ACCU-CHEK XX (02:20)
[2018-11-09] MEDS: PANTOPRAZOLE (EC) 40 MG TAB PO (05:20)
[2018-11-09] MEDS: HYDROCODONE/APAP (5/325) TAB PO (05:38)
[2018-11-09] MEDS: HEPARIN 5,000 UNIT/1 ML VIAL SC (05:44)
[2018-11-09 06:05] LABS: ADD MAN DIFF? NO
[2018-11-09 06:10] LABS: BASOPHIL # 0.1 10^3/ul (0.0-0.1); BASOPHILS % 0.6 % (0.0-2.0); EOSINOPHILS # 0.4 10^3/ul (0.0-0.5); EOSINOPHILS % 4.3 % (0.0-7.0); LYMPHOCYTES # 0.9 10^3/ul (0.8-2.9); LYMPHOCYTES % 9.8 % (15.0-51.0); MEAN CORPUSCULAR HEMOGLOBIN 27.6 pg (29.0-33.0); MEAN CORPUSCULAR HGB CONC 32.5 g/dl (32.0-37.0); MEAN CORPUSCULAR VOLUME 84.9 fl (82.0-101.0); MONOCYTE # 1.2 10^3/ul (0.3-0.9); MONOCYTES % 12.9 % (0.0-11.0); NEUTROPHIL # 6.5 10^3/ul (1.6-7.5); NEUTROPHILS % 72.1 % (39.0-77.0); PLATELET COUNT 239 10^3/UL (140-415); RED BLOOD COUNT 4.71 10^6/ul (4.70-6.10); RED CELL DISTRIBUTION WIDTH 12.8 % (11.5-14.5)
[2018-11-09 06:51] LABS: ANION GAP 12 (5-13); BLOOD UREA NITROGEN 70 mg/dl (7-20); CALCIUM 9.2 mg/dl (8.4-10.2); CARBON DIOXIDE 31 mmol/L (21-31); CHLORIDE 98 mmol/L (97-110); CREATININE 3.45 mg/dl (0.61-1.24); GLUCOSE 79 mg/dl (70-220); MAGNESIUM 2.9 mg/dl (1.7-2.5); PHOSPHORUS 3.4 mg/dl (2.5-4.9); POTASSIUM 3.9 mmol/L (3.5-5.1); SODIUM 141 mmol/L (135-144)
[2018-11-09] MEDS: INSULIN ASPART [NOVOLOG] 3 ML PEN SC ×4 (07:50→11:51)
[2018-11-09] MEDS: ALBUTEROL/IPRATROPIUM (NEB) 3 ML AMP HHN (07:58)
[2018-11-09] MEDS: FISH OIL 1,000 MG CAP PO (08:21)
[2018-11-09] MEDS: FEBUXOSTAT 40 MG TABLET PO (08:22)
[2018-11-09] MEDS: ASPIRIN (EC) 81 MG TAB PO (08:22)
[2018-11-09] MEDS: MAGNESIUM HYDROXIDE 30ML CUP PO (08:22)
[2018-11-09] MEDS: CLOPIDOGREL 75 MG TAB PO (08:22)
[2018-11-09] MEDS: FUROSEMIDE 20 MG INJ IV (08:23)
[2018-11-09] MEDS ORDERED: LEVOFLOXACIN 500 MG TAB PO (13:00)
== END 2018-11-09 12:30 | disposition home or self-care (01) | DRG 291 ==
LOC: E/R 09:32 → 6WM 14:17
DX: I13.0 Hypertensive heart and chronic kidney disease with heart failure and stage 1 through stage 4 chronic kidney disease, or unspecified chronic kidney disease (principal); J18.9 Pneumonia, unspecified organism; I50.43 Acute on chronic combined systolic (congestive) and diastolic (congestive) heart failure; N18.4 Chronic kidney disease, stage 4 (severe); E11.22 Type 2 diabetes mellitus with diabetic chronic kidney disease; E11.65 Type 2 diabetes mellitus with hyperglycemia; I16.0 Hypertensive urgency; R06.03 Acute respiratory distress; Z91.14 Patient's other noncompliance with medication regimen
CPT/HCPCS: 36415; 71045; 76775; 80048; 80053; 80061; 81001; 81003; 82570; 82962; 83036; 83735; 83880; 83970; 84100; 84443; 84484; 84560; 85025; 85610; 85730; 93005; 93306; 94640; 94664; 96374; 99285-25

== ENCOUNTER 2018-11-21 14:25 | Inpatient (IN) | payer OTHER, MEDICAID ==
[2018-11-21 16:27] LABS: ADD MAN DIFF? NO
[2018-11-21 16:35] LABS: WHITE BLOOD COUNT 10.5 10^3/ul (4.8-10.8)
[2018-11-21 16:35] LABS: ABNORMAL IP MESSAGE 1; BASOPHILS % 0.4 % (0.0-2.0); EOSINOPHILS # 0.4 10^3/ul (0.0-0.5); EOSINOPHILS % 4.1 % (0.0-7.0); HEMATOCRIT 36.7 % (42.0-52.0); HEMOGLOBIN 11.9 g/dl (14.0-18.0); LYMPHOCYTES # 0.6 10^3/ul (0.8-2.9); LYMPHOCYTES % 5.5 % (15.0-51.0); MEAN CORPUSCULAR HEMOGLOBIN 27.6 pg (29.0-33.0); MEAN CORPUSCULAR HGB CONC 32.4 g/dl (32.0-37.0); MEAN CORPUSCULAR VOLUME 85.2 fl (82.0-101.0); MEAN PLATELET VOLUME 11.2 fl (7.4-10.4); MONOCYTE # 1.1 10^3/ul (0.3-0.9); MONOCYTES % 10.3 % (0.0-11.0); NEUTROPHIL # 8.3 10^3/ul (1.6-7.5); NEUTROPHILS % 79.2 % (39.0-77.0); PLATELET COUNT 224 10^3/UL (140-415); POSITIVE DIFF @See below; RED BLOOD COUNT 4.31 10^6/ul (4.70-6.10)
[2018-11-21] MEDS: ASPIRIN 81 MG TAB PO (16:35)
[2018-11-21] MEDS: NITROGLYCERIN 2% 1 GM OINT PKT TD (16:36)
[2018-11-21 16:37] LABS: INR 0.96; PROTIME 12.9 Sec (11.9-14.9)
[2018-11-21 16:38] LABS: PARTIAL THROMBOPLASTIN TIME 30.3 Sec (23.0-35.0)
[2018-11-21 16:41] LABS: ANION GAP 13 (5-13); BLOOD UREA NITROGEN 48 mg/dl (7-20); CALCIUM 9.1 mg/dl (8.4-10.2); CARBON DIOXIDE 25 mmol/L (21-31); CHLORIDE 100 mmol/L (97-110); CREATININE 2.93 mg/dl (0.61-1.24); GLUCOSE 245 mg/dl (70-220); POTASSIUM 3.4 mmol/L (3.5-5.1); SODIUM 138 mmol/L (135-144)
[2018-11-21 17:39] LABS: B-TYPE NATRIURETIC PEPTIDE 34800 PG/ML (0-125); TROPONIN-I 0.092 ng/ml (0.000-0.120)
[2018-11-21] MEDS: FUROSEMIDE 40 MG INJ IV (18:02)
[2018-11-21] MEDS ORDERED: NACL 0.9% 3 ML SYG IV (19:30)
[2018-11-21] MEDS ORDERED: GLUCOSE GEL 15 GRAM TUBE BUCCAL (20:00)
[2018-11-21] MEDS ORDERED: GLUCOSE GEL 15 GRAM TUBE PO (20:00)
[2018-11-21] MEDS ORDERED: GLUCAGON 1 MG INJ IM (20:00)
[2018-11-21] MEDS ORDERED: DEXTROSE 50% 50 ML SYRINGE IV ×2 (20:00)
[2018-11-21] MEDS: INSULIN ASPART [NOVOLOG] 3 ML PEN SC (21:00)
[2018-11-21] MEDS: BUMETANIDE 1 MG INJ IV (21:14)
[2018-11-21] MEDS: INSULIN GLARGINE [LANTus] (100 UNITS/ML) SYG SC (21:42)
[2018-11-21] MEDS: FISH OIL 1,000 MG CAP PO (21:43)
[2018-11-21] MEDS: ATORVASTATIN 40 MG TAB PO (21:43)
[2018-11-21] MEDS ORDERED: NITROGLYCERIN (SL) 0.4 MG TAB (23:43)
[2018-11-21] MEDS: ACCU-CHEK XX (23:53)
[2018-11-22 00:15] LABS: CREATINE KINASE 109 IU/L (23-200)
[2018-11-22] MEDS: NITROGLYCERIN (SL) 0.4 MG TAB SL (00:20)
[2018-11-22 00:28] LABS: CK INDEX 1.3; CK-MB 1.42 ng/ml (0.0-2.4); TROPONIN-I 0.085 ng/ml (0.000-0.120)
[2018-11-22 03:00] LABS: TROPONIN-I 0.094 ng/ml (0.000-0.120)
[2018-11-22 05:40] LABS: ADD MAN DIFF? NO
[2018-11-22 05:45] LABS: BASOPHILS % 0.4 % (0.0-2.0); EOSINOPHILS # 0.5 10^3/ul (0.0-0.5); EOSINOPHILS % 4.7 % (0.0-7.0); HEMATOCRIT 36.1 % (42.0-52.0); HEMOGLOBIN 11.7 g/dl (14.0-18.0); LYMPHOCYTES # 0.8 10^3/ul (0.8-2.9); LYMPHOCYTES % 7.2 % (15.0-51.0); MEAN CORPUSCULAR HEMOGLOBIN 27.6 pg (29.0-33.0); MEAN CORPUSCULAR HGB CONC 32.4 g/dl (32.0-37.0); MEAN CORPUSCULAR VOLUME 85.1 fl (82.0-101.0); MEAN PLATELET VOLUME 10.3 fl (7.4-10.4); MONOCYTE # 1.4 10^3/ul (0.3-0.9); MONOCYTES % 13.7 % (0.0-11.0); NEUTROPHIL # 7.7 10^3/ul (1.6-7.5); NEUTROPHILS % 73.7 % (39.0-77.0); PLATELET COUNT 223 10^3/UL (140-415); RED BLOOD COUNT 4.24 10^6/ul (4.70-6.10); RED CELL DISTRIBUTION WIDTH 13.1 % (11.5-14.5)
[2018-11-22 05:45] LABS: WHITE BLOOD COUNT 10.4 10^3/ul (4.8-10.8)
[2018-11-22 05:55] LABS: HEMOGLOBIN A1C 11.6 % (0-5.9)
[2018-11-22 06:19] LABS: CREATINE KINASE 88 IU/L (23-200)
[2018-11-22 06:20] LABS: ALANINE AMINOTRANSFERASE 50 IU/L (13-69); ALBUMIN 3.1 g/dl (3.3-4.9); ALBUMIN/GLOBULIN RATIO 1.19; ALKALINE PHOSPHATASE 127 IU/L (42-121); ANION GAP 9 (5-13); ASPARTATE AMINO TRANSFERASE 33 IU/L (15-46); BILIRUBIN,INDIRECT 0.4 mg/dl (0-1.1); BILIRUBIN,TOTAL 0.4 mg/dl (0.2-1.3); BLOOD UREA NITROGEN 55 mg/dl (7-20); CARBON DIOXIDE 29 mmol/L (21-31); CHLORIDE 103 mmol/L (97-110); CREATININE 2.76 mg/dl (0.61-1.24); GLUCOSE 142 mg/dl (70-220); MAGNESIUM 1.8 mg/dl (1.7-2.5); POTASSIUM 3.4 mmol/L (3.5-5.1); SODIUM 141 mmol/L (135-144); TOTAL PROTEIN 5.7 g/dl (6.1-8.1)
[2018-11-22 06:25] LABS: CK INDEX 1.7; CK-MB 1.48 ng/ml (0.0-2.4); TROPONIN-I 0.104 ng/ml (0.000-0.120)
[2018-11-22] MEDS: INSULIN ASPART [NOVOLOG] 3 ML PEN SC ×4 (07:35→21:00)
[2018-11-22] MEDS: BUMETANIDE 1 MG INJ IV ×2 (08:11→17:38)
[2018-11-22] MEDS: CLOPIDOGREL 75 MG TAB PO (09:27)
[2018-11-22] MEDS: FISH OIL 1,000 MG CAP PO ×2 (09:27→21:20)
[2018-11-22] MEDS: ASPIRIN (EC) 81 MG TAB PO (09:27)
[2018-11-22] MEDS: PANTOPRAZOLE (EC) 40 MG TAB PO (09:27)
[2018-11-22] MEDS: FEBUXOSTAT 40 MG TABLET PO (09:28)
[2018-11-22] MEDS: ISOSORBIDE MONONITRATE(SR)30 MG TAB PO (09:30)
[2018-11-22] MEDS: ENOXAPARIN 30 MG/0.3 ML SYG SC (09:30)
[2018-11-22 15:38] LABS: B-TYPE NATRIURETIC PEPTIDE 34700 PG/ML (0-125)
[2018-11-22] MEDS: POTASSIUM CHLORIDE (SR) 10 MEQ TAB PO (17:38)
[2018-11-22] MEDS: hydrALAzine 20 MG INJ IV (19:48)
[2018-11-22] MEDS: INSULIN GLARGINE [LANTus] (100 UNITS/ML) SYG SC (20:22)
[2018-11-22] MEDS: ATORVASTATIN 40 MG TAB PO (21:20)
[2018-11-23] MEDS: hydrALAzine 20 MG INJ IV (00:28)
[2018-11-23] MEDS: ACCU-CHEK XX (02:00)
[2018-11-23 06:23] LABS: ADD MAN DIFF? NO
[2018-11-23 06:32] LABS: BASOPHIL # 0.1 10^3/ul (0.0-0.1); BASOPHILS % 0.7 % (0.0-2.0); EOSINOPHILS # 0.3 10^3/ul (0.0-0.5); EOSINOPHILS % 2.9 % (0.0-7.0); LYMPHOCYTES # 0.8 10^3/ul (0.8-2.9); LYMPHOCYTES % 7.4 % (15.0-51.0); MEAN CORPUSCULAR HEMOGLOBIN 28.2 pg (29.0-33.0); MEAN CORPUSCULAR HGB CONC 33.3 g/dl (32.0-37.0); MEAN CORPUSCULAR VOLUME 84.5 fl (82.0-101.0); MEAN PLATELET VOLUME 10.7 fl (7.4-10.4); MONOCYTE # 1.3 10^3/ul (0.3-0.9); MONOCYTES % 12.4 % (0.0-11.0); NEUTROPHIL # 7.8 10^3/ul (1.6-7.5); NEUTROPHILS % 76.3 % (39.0-77.0); PLATELET COUNT 253 10^3/UL (140-415); RED BLOOD COUNT 4.26 10^6/ul (4.70-6.10); RED CELL DISTRIBUTION WIDTH 13.2 % (11.5-14.5)
[2018-11-23 06:32] LABS: WHITE BLOOD COUNT 10.2 10^3/ul (4.8-10.8)
[2018-11-23] MEDS: PANTOPRAZOLE (EC) 40 MG TAB PO (06:51)
[2018-11-23] MEDS: BUMETANIDE 1 MG INJ IV ×2 (06:51→17:47)
[2018-11-23 07:11] LABS: PHOSPHORUS 3.2 mg/dl (2.5-4.9)
[2018-11-23 07:11] LABS: MAGNESIUM 1.8 mg/dl (1.7-2.5)
[2018-11-23 07:35] LABS: ANION GAP 6 (5-13); BLOOD UREA NITROGEN 55 mg/dl (7-20); CALCIUM 9.2 mg/dl (8.4-10.2); CARBON DIOXIDE 29 mmol/L (21-31); CHLORIDE 107 mmol/L (97-110); CREATININE 2.84 mg/dl (0.61-1.24); GLUCOSE 89 mg/dl (70-220); POTASSIUM 3.3 mmol/L (3.5-5.1); SODIUM 142 mmol/L (135-144)
[2018-11-23] MEDS: INSULIN ASPART [NOVOLOG] 3 ML PEN SC ×4 (07:55→20:28)
[2018-11-23] MEDS: FISH OIL 1,000 MG CAP PO ×2 (08:21→20:29)
[2018-11-23] MEDS: ASPIRIN (EC) 81 MG TAB PO (08:21)
[2018-11-23] MEDS: FEBUXOSTAT 40 MG TABLET PO (08:21)
[2018-11-23] MEDS: ISOSORBIDE MONONITRATE(SR)30 MG TAB PO (08:21)
[2018-11-23] MEDS: CLOPIDOGREL 75 MG TAB PO (08:21)
[2018-11-23] MEDS: ENOXAPARIN 30 MG/0.3 ML SYG SC (08:38)
[2018-11-23] MEDS: MAGNESIUM SULFATE 2 GM/50 ML 50 ML IVPB (09:27)
[2018-11-23] MEDS: traMADol 50 MG TAB PO ×2 (09:27→17:39)
[2018-11-23] MEDS: POTASSIUM CHLORIDE (SR) 20 MEQ TAB PO (09:27)
[2018-11-23 10:15] LABS: CREATINE KINASE 60 IU/L (23-200)
[2018-11-23 10:27] LABS: CK INDEX 1.4; CK-MB 0.86 ng/ml (0.0-2.4); TROPONIN-I 0.075 ng/ml (0.000-0.120)
[2018-11-23] MEDS: ATORVASTATIN 40 MG TAB PO (20:28)
[2018-11-23] MEDS: INSULIN GLARGINE [LANTus] (100 UNITS/ML) SYG SC (20:34)
[2018-11-24] MEDS: ACCU-CHEK XX (02:00)
[2018-11-24] MEDS: PANTOPRAZOLE (EC) 40 MG TAB PO (06:12)
[2018-11-24] MEDS: BUMETANIDE 1 MG INJ IV ×2 (06:12→17:32)
[2018-11-24 07:02] LABS: ADD MAN DIFF? NO
[2018-11-24 07:05] LABS: WHITE BLOOD COUNT 12.1 10^3/ul (4.8-10.8)
[2018-11-24 07:05] LABS: ABNORMAL IP MESSAGE 1; BASOPHILS % 0.3 % (0.0-2.0); EOSINOPHILS # 0.1 10^3/ul (0.0-0.5); EOSINOPHILS % 0.4 % (0.0-7.0); HEMATOCRIT 33.2 % (42.0-52.0); HEMOGLOBIN 10.9 g/dl (14.0-18.0); LYMPHOCYTES # 0.8 10^3/ul (0.8-2.9); LYMPHOCYTES % 6.6 % (15.0-51.0); MEAN CORPUSCULAR HEMOGLOBIN 27.9 pg (29.0-33.0); MEAN CORPUSCULAR HGB CONC 32.8 g/dl (32.0-37.0); MEAN CORPUSCULAR VOLUME 84.9 fl (82.0-101.0); MEAN PLATELET VOLUME 10.4 fl (7.4-10.4); MONOCYTES % 16.1 % (0.0-11.0); NEUTROPHIL # 9.2 10^3/ul (1.6-7.5); NEUTROPHILS % 76.4 % (39.0-77.0); PLATELET COUNT 260 10^3/UL (140-415); POSITIVE DIFF @See below; RED BLOOD COUNT 3.91 10^6/ul (4.70-6.10); RED CELL DISTRIBUTION WIDTH 13.2 % (11.5-14.5)
[2018-11-24 07:29] LABS: PHOSPHORUS 3.5 mg/dl (2.5-4.9)
[2018-11-24 07:32] LABS: ANION GAP 4 (5-13); BLOOD UREA NITROGEN 56 mg/dl (7-20); CALCIUM 8.9 mg/dl (8.4-10.2); CARBON DIOXIDE 31 mmol/L (21-31); CHLORIDE 104 mmol/L (97-110); CREATININE 2.88 mg/dl (0.61-1.24); GLUCOSE 67 mg/dl (70-220); POTASSIUM 3.8 mmol/L (3.5-5.1); SODIUM 139 mmol/L (135-144)
[2018-11-24] MEDS: FEBUXOSTAT 40 MG TABLET PO (08:21)
[2018-11-24] MEDS: ISOSORBIDE MONONITRATE(SR)30 MG TAB PO (08:22)
[2018-11-24] MEDS: FISH OIL 1,000 MG CAP PO ×2 (08:22→21:15)
[2018-11-24] MEDS: ASPIRIN (EC) 81 MG TAB PO (08:22)
[2018-11-24] MEDS: CLOPIDOGREL 75 MG TAB PO (08:22)
[2018-11-24] MEDS: INSULIN ASPART [NOVOLOG] 3 ML PEN SC ×3 (08:59→17:34)
[2018-11-24] MEDS: ENOXAPARIN 30 MG/0.3 ML SYG SC (09:00)
[2018-11-24] MEDS: traMADol 50 MG TAB PO ×2 (15:17→21:34)
[2018-11-24] MEDS: POTASSIUM CHLORIDE (SR) 20 MEQ TAB PO (17:32)
[2018-11-24] MEDS: MAGNESIUM SULFATE 1 GM/D5W 100 ML IVPB (17:45)
[2018-11-24] MEDS: ATORVASTATIN 40 MG TAB PO (21:15)
[2018-11-25] MEDS: INSULIN ASPART [NOVOLOG] 3 ML PEN SC ×5 (00:03→20:51)
[2018-11-25] MEDS: INSULIN GLARGINE [LANTus] (100 UNITS/ML) SYG SC ×2 (00:04→20:50)
[2018-11-25] MEDS: ACCU-CHEK XX (02:45)
[2018-11-25] MEDS: PANTOPRAZOLE (EC) 40 MG TAB PO (06:37)
[2018-11-25] MEDS: BUMETANIDE 1 MG INJ IV (06:37)
[2018-11-25 07:03] LABS: ADD MAN DIFF? NO
[2018-11-25 07:10] LABS: WHITE BLOOD COUNT 11.6 10^3/ul (4.8-10.8)
[2018-11-25 07:10] LABS: ABNORMAL IP MESSAGE 1; BASOPHILS % 0.3 % (0.0-2.0); EOSINOPHILS # 0.1 10^3/ul (0.0-0.5); HEMATOCRIT 31.6 % (42.0-52.0); HEMOGLOBIN 10.1 g/dl (14.0-18.0); LYMPHOCYTES % 8.4 % (15.0-51.0); MEAN CORPUSCULAR HEMOGLOBIN 27.6 pg (29.0-33.0); MEAN CORPUSCULAR VOLUME 86.3 fl (82.0-101.0); MEAN PLATELET VOLUME 10.9 fl (7.4-10.4); MONOCYTE # 1.9 10^3/ul (0.3-0.9); MONOCYTES % 16.5 % (0.0-11.0); NEUTROPHIL # 8.5 10^3/ul (1.6-7.5); NEUTROPHILS % 73.5 % (39.0-77.0); PLATELET COUNT 238 10^3/UL (140-415); POSITIVE DIFF @See below; RED BLOOD COUNT 3.66 10^6/ul (4.70-6.10); RED CELL DISTRIBUTION WIDTH 13.1 % (11.5-14.5)
[2018-11-25 07:23] LABS: ANION GAP 5 (5-13); BLOOD UREA NITROGEN 70 mg/dl (7-20); CALCIUM 8.9 mg/dl (8.4-10.2); CARBON DIOXIDE 31 mmol/L (21-31); CHLORIDE 101 mmol/L (97-110); CREATININE 3.15 mg/dl (0.61-1.24); MAGNESIUM 2.3 mg/dl (1.7-2.5); PHOSPHORUS 4.1 mg/dl (2.5-4.9); POTASSIUM 3.8 mmol/L (3.5-5.1); SODIUM 137 mmol/L (135-144)
[2018-11-25 07:29] LABS: URIC ACID 5.8 mg/dl (3.1-7.9)
[2018-11-25 07:38] LABS: GLUCOSE 46 mg/dl (70-220)
[2018-11-25] MEDS: ASPIRIN (EC) 81 MG TAB PO (08:20)
[2018-11-25] MEDS: FISH OIL 1,000 MG CAP PO ×2 (08:20→20:43)
[2018-11-25] MEDS: CLOPIDOGREL 75 MG TAB PO (08:21)
[2018-11-25] MEDS: ISOSORBIDE MONONITRATE(SR)30 MG TAB PO (08:26)
[2018-11-25] MEDS: ENOXAPARIN 30 MG/0.3 ML SYG SC (08:34)
[2018-11-25] MEDS: FEBUXOSTAT 40 MG TABLET PO (09:54)
[2018-11-25] MEDS: POLYETHYLENE GLYCOL 17 GM PACKET PO ×2 (15:45→20:44)
[2018-11-25] MEDS: BUMETANIDE 1 MG TAB PO (17:08)
[2018-11-25 17:44] LABS: SODIUM,URINE RANDOM 24 mmol/L (30-90)
[2018-11-25 17:44] LABS: CREATININE,URINE RANDOM 72.02 mg/dl (20-370)
[2018-11-25 17:56] LABS: ADD UMIC YES; UR ASCORBIC ACID NEGATIVE (NEGATIVE); UR BILIRUBIN (Dip) NEGATIVE (NEGATIVE); UR BLOOD (Dip) NEGATIVE (NEGATIVE); UR CLARITY CLEAR (CLEAR); UR COLOR YELLOW (YELLOW); UR GLUCOSE (Dip) 1+ mg/dL (NEGATIVE); UR KETONES (Dip) NEGATIVE (NEGATIVE); UR LEUKOCYTE ESTERASE (Dip) NEGATIVE Leu/ul (NEGATIVE); UR NITRITE (Dip) NEGATIVE (NEGATIVE); UR RBC 1 /HPF (0-5); UR SPECIFIC GRAVITY (Dip) 1.013 (1.003-1.030); UR TOTAL PROTEIN (Dip) 2+ mg/dl (NEGATIVE); UR UROBILINOGEN (Dip) NEGATIVE (NEGATIVE); UR WBC 1 /HPF (0-5)
[2018-11-25] MEDS: ATORVASTATIN 40 MG TAB PO (20:43)
[2018-11-26] MEDS: ACCU-CHEK XX (02:29)
[2018-11-26] MEDS: BUMETANIDE 1 MG TAB PO ×2 (06:21→17:29)
[2018-11-26] MEDS: PANTOPRAZOLE (EC) 40 MG TAB PO (06:21)
[2018-11-26] MEDS: INSULIN ASPART [NOVOLOG] 3 ML PEN SC ×4 (07:55→21:06)
[2018-11-26 08:09] LABS: ADD MAN DIFF? NO
[2018-11-26 08:12] LABS: BASOPHIL # 0.1 10^3/ul (0.0-0.1); BASOPHILS % 0.6 % (0.0-2.0); EOSINOPHILS # 0.6 10^3/ul (0.0-0.5); EOSINOPHILS % 4.9 % (0.0-7.0); HEMATOCRIT 32.7 % (42.0-52.0); HEMOGLOBIN 10.7 g/dl (14.0-18.0); LYMPHOCYTES # 0.8 10^3/ul (0.8-2.9); LYMPHOCYTES % 7.4 % (15.0-51.0); MEAN CORPUSCULAR HEMOGLOBIN 27.9 pg (29.0-33.0); MEAN CORPUSCULAR HGB CONC 32.7 g/dl (32.0-37.0); MEAN CORPUSCULAR VOLUME 85.2 fl (82.0-101.0); MEAN PLATELET VOLUME 11.1 fl (7.4-10.4); MONOCYTE # 1.4 10^3/ul (0.3-0.9); MONOCYTES % 12.3 % (0.0-11.0); NEUTROPHIL # 8.4 10^3/ul (1.6-7.5); NEUTROPHILS % 74.4 % (39.0-77.0); PLATELET COUNT 274 10^3/UL (140-415); RED BLOOD COUNT 3.84 10^6/ul (4.70-6.10); RED CELL DISTRIBUTION WIDTH 13.1 % (11.5-14.5)
[2018-11-26 08:12] LABS: WHITE BLOOD COUNT 11.3 10^3/ul (4.8-10.8)
[2018-11-26 08:45] LABS: ANION GAP 15 (5-13); BLOOD UREA NITROGEN 80 mg/dl (7-20); CALCIUM 8.3 mg/dl (8.4-10.2); CARBON DIOXIDE 25 mmol/L (21-31); CHLORIDE 95 mmol/L (97-110); CREATININE 2.98 mg/dl (0.61-1.24); GLUCOSE 58 mg/dl (70-220); MAGNESIUM 2.3 mg/dl (1.7-2.5); PHOSPHORUS 4.1 mg/dl (2.5-4.9); POTASSIUM 3.8 mmol/L (3.5-5.1); SODIUM 135 mmol/L (135-144)
[2018-11-26] MEDS: ISOSORBIDE MONONITRATE(SR)30 MG TAB PO (08:45)
[2018-11-26] MEDS: FISH OIL 1,000 MG CAP PO ×2 (08:45→20:58)
[2018-11-26] MEDS: ASPIRIN (EC) 81 MG TAB PO (08:45)
[2018-11-26] MEDS: CLOPIDOGREL 75 MG TAB PO (08:45)
[2018-11-26] MEDS: POLYETHYLENE GLYCOL 17 GM PACKET PO ×2 (08:46→20:58)
[2018-11-26] MEDS: ENOXAPARIN 30 MG/0.3 ML SYG SC (08:51)
[2018-11-26] MEDS: FEBUXOSTAT 40 MG TABLET PO (12:38)
[2018-11-26] MEDS: traMADol 50 MG TAB PO (15:56)
[2018-11-26] MEDS: ATORVASTATIN 40 MG TAB PO (20:57)
[2018-11-26] MEDS: INSULIN GLARGINE [LANTus] (100 UNITS/ML) SYG SC (21:05)
[2018-11-27] MEDS: traMADol 50 MG TAB PO ×3 (00:01→23:46)
[2018-11-27 01:13] LABS: SODIUM,URINE RANDOM 75 mmol/L (30-90)
[2018-11-27 01:13] LABS: CREATININE,URINE RANDOM 29.18 mg/dl (20-370)
[2018-11-27] MEDS: ACCU-CHEK XX (02:32)
[2018-11-27] MEDS: BUMETANIDE 1 MG TAB PO ×2 (05:26→08:50)
[2018-11-27] MEDS: PANTOPRAZOLE (EC) 40 MG TAB PO (05:26)
[2018-11-27 06:19] LABS: WHITE BLOOD COUNT 8.3 10^3/ul (4.8-10.8)
[2018-11-27 06:19] LABS: ADD MAN DIFF? NO; BASOPHILS % 0.5 % (0.0-2.0); EOSINOPHILS # 0.5 10^3/ul (0.0-0.5); EOSINOPHILS % 5.7 % (0.0-7.0); HEMATOCRIT 31.5 % (42.0-52.0); HEMOGLOBIN 10.3 g/dl (14.0-18.0); LYMPHOCYTES # 0.8 10^3/ul (0.8-2.9); LYMPHOCYTES % 9.8 % (15.0-51.0); MEAN CORPUSCULAR HEMOGLOBIN 27.8 pg (29.0-33.0); MEAN CORPUSCULAR HGB CONC 32.7 g/dl (32.0-37.0); MEAN CORPUSCULAR VOLUME 84.9 fl (82.0-101.0); MEAN PLATELET VOLUME 11.1 fl (7.4-10.4); MONOCYTE # 1.2 10^3/ul (0.3-0.9); MONOCYTES % 14.3 % (0.0-11.0); NEUTROPHIL # 5.7 10^3/ul (1.6-7.5); NEUTROPHILS % 69.2 % (39.0-77.0); PLATELET COUNT 273 10^3/UL (140-415); RED BLOOD COUNT 3.71 10^6/ul (4.70-6.10); RED CELL DISTRIBUTION WIDTH 12.9 % (11.5-14.5)
[2018-11-27] MEDS: GLUCOSE GEL 15 GRAM TUBE PO ×2 (06:19→06:42)
[2018-11-27 06:41] LABS: PHOSPHORUS 4.4 mg/dl (2.5-4.9)
[2018-11-27 06:41] LABS: MAGNESIUM 2.3 mg/dl (1.7-2.5)
[2018-11-27 06:52] LABS: ANION GAP 10 (5-13); BLOOD UREA NITROGEN 92 mg/dl (7-20); CALCIUM 8.9 mg/dl (8.4-10.2); CARBON DIOXIDE 30 mmol/L (21-31); CHLORIDE 96 mmol/L (97-110); CREATININE 3.52 mg/dl (0.61-1.24); GLUCOSE 69 mg/dl (70-220); POTASSIUM 3.9 mmol/L (3.5-5.1); SODIUM 136 mmol/L (135-144)
[2018-11-27] MEDS: INSULIN ASPART [NOVOLOG] 3 ML PEN SC ×4 (07:55→20:36)
[2018-11-27] MEDS: ASPIRIN (EC) 81 MG TAB PO (08:04)
[2018-11-27] MEDS: CLOPIDOGREL 75 MG TAB PO (08:04)
[2018-11-27] MEDS: BISACODYL (EC) 5 MG TAB PO (08:04)
[2018-11-27] MEDS: ISOSORBIDE MONONITRATE(SR)30 MG TAB PO (08:04)
[2018-11-27] MEDS: FISH OIL 1,000 MG CAP PO ×2 (08:05→20:25)
[2018-11-27] MEDS: POLYETHYLENE GLYCOL 17 GM PACKET PO ×2 (08:05→20:26)
[2018-11-27] MEDS: ENOXAPARIN 30 MG/0.3 ML SYG SC (08:07)
[2018-11-27] MEDS: FEBUXOSTAT 40 MG TABLET PO (08:50)
[2018-11-27] MEDS: POTASSIUM CHLORIDE (SR) 20 MEQ TAB PO (16:38)
[2018-11-27] MEDS: ATORVASTATIN 40 MG TAB PO (20:25)
[2018-11-27] MEDS: INSULIN GLARGINE [LANTus] (100 UNITS/ML) SYG SC (20:35)
[2018-11-28] MEDS: ACCU-CHEK XX (02:00)
[2018-11-28] MEDS: GLUCOSE GEL 15 GRAM TUBE PO (05:35)
[2018-11-28 06:00] LABS: ADD MAN DIFF? NO
[2018-11-28] MEDS: PANTOPRAZOLE (EC) 40 MG TAB PO (06:03)
[2018-11-28 06:07] LABS: BASOPHIL # 0.1 10^3/ul (0.0-0.1); BASOPHILS % 0.7 % (0.0-2.0); EOSINOPHILS # 0.5 10^3/ul (0.0-0.5); EOSINOPHILS % 6.7 % (0.0-7.0); HEMATOCRIT 33.1 % (42.0-52.0); HEMOGLOBIN 10.9 g/dl (14.0-18.0); LYMPHOCYTES # 0.8 10^3/ul (0.8-2.9); LYMPHOCYTES % 10.2 % (15.0-51.0); MEAN CORPUSCULAR HEMOGLOBIN 28.1 pg (29.0-33.0); MEAN CORPUSCULAR HGB CONC 32.9 g/dl (32.0-37.0); MEAN CORPUSCULAR VOLUME 85.3 fl (82.0-101.0); MEAN PLATELET VOLUME 10.7 fl (7.4-10.4); MONOCYTE # 1.2 10^3/ul (0.3-0.9); MONOCYTES % 16.5 % (0.0-11.0); NEUTROPHIL # 4.9 10^3/ul (1.6-7.5); NEUTROPHILS % 65.4 % (39.0-77.0); PLATELET COUNT 297 10^3/UL (140-415); RED BLOOD COUNT 3.88 10^6/ul (4.70-6.10); RED CELL DISTRIBUTION WIDTH 13.1 % (11.5-14.5)
[2018-11-28 06:07] LABS: WHITE BLOOD COUNT 7.4 10^3/ul (4.8-10.8)
[2018-11-28 06:46] LABS: MAGNESIUM 2.4 mg/dl (1.7-2.5)
[2018-11-28 06:46] LABS: PHOSPHORUS 4.3 mg/dl (2.5-4.9)
[2018-11-28 07:01] LABS: ANION GAP 7 (5-13); BLOOD UREA NITROGEN 93 mg/dl (7-20); CALCIUM 9.4 mg/dl (8.4-10.2); CARBON DIOXIDE 34 mmol/L (21-31); CHLORIDE 97 mmol/L (97-110); CREATININE 3.57 mg/dl (0.61-1.24); GLUCOSE 69 mg/dl (70-220); POTASSIUM 4.4 mmol/L (3.5-5.1); SODIUM 138 mmol/L (135-144)
[2018-11-28] MEDS: INSULIN ASPART [NOVOLOG] 3 ML PEN SC ×4 (07:55→21:39)
[2018-11-28] MEDS: ASPIRIN (EC) 81 MG TAB PO (08:39)
[2018-11-28] MEDS: ISOSORBIDE MONONITRATE(SR)30 MG TAB PO (08:40)
[2018-11-28] MEDS: CLOPIDOGREL 75 MG TAB PO (08:40)
[2018-11-28] MEDS: FISH OIL 1,000 MG CAP PO ×2 (08:40→21:25)
[2018-11-28] MEDS: POLYETHYLENE GLYCOL 17 GM PACKET PO ×2 (08:41→21:26)
[2018-11-28] MEDS: ENOXAPARIN 30 MG/0.3 ML SYG SC (09:20)
[2018-11-28] MEDS: FEBUXOSTAT 40 MG TABLET PO (10:56)
[2018-11-28 17:51] LABS: CREATININE, RANDOM URINE 30 mg/dL (20-320); CREATININE, RANDOM URINE 72 mg/dL (20-320); MICROALBUMIN 31.8 mg/dL; MICROALBUMIN 92.1 mg/dL; MICROALBUMIN/CREATININE RATIO 1060 (<30); MICROALBUMIN/CREATININE RATIO 1279 (<30)
[2018-11-28] MEDS: NIFEdipine (XL) 30 MG TAB PO (21:24)
[2018-11-28] MEDS: ATORVASTATIN 40 MG TAB PO (21:25)
[2018-11-28] MEDS: INSULIN GLARGINE [LANTus] (100 UNITS/ML) SYG SC (21:39)
[2018-11-29] MEDS: ACCU-CHEK XX (02:00)
[2018-11-29] MEDS: PANTOPRAZOLE (EC) 40 MG TAB PO (06:29)
[2018-11-29] MEDS: traMADol 50 MG TAB PO (06:29)
[2018-11-29] MEDS: INSULIN ASPART [NOVOLOG] 3 ML PEN SC ×5 (07:37→20:37)
[2018-11-29 08:03] LABS: ANION GAP 3 (5-13); BLOOD UREA NITROGEN 79 mg/dl (7-20); CARBON DIOXIDE 34 mmol/L (21-31); CHLORIDE 99 mmol/L (97-110); GLUCOSE 105 mg/dl (70-220); MAGNESIUM 2.4 mg/dl (1.7-2.5); PHOSPHORUS 4.1 mg/dl (2.5-4.9); SODIUM 136 mmol/L (135-144)
[2018-11-29] MEDS: POLYETHYLENE GLYCOL 17 GM PACKET PO ×2 (08:34→20:37)
[2018-11-29] MEDS: FISH OIL 1,000 MG CAP PO ×2 (08:35→20:37)
[2018-11-29] MEDS: ASPIRIN (EC) 81 MG TAB PO (08:35)
[2018-11-29] MEDS: CLOPIDOGREL 75 MG TAB PO (08:36)
[2018-11-29] MEDS: ISOSORBIDE MONONITRATE(SR)30 MG TAB PO (08:36)
[2018-11-29] MEDS: NIFEdipine (XL) 30 MG TAB PO (08:36)
[2018-11-29] MEDS: ENOXAPARIN 30 MG/0.3 ML SYG SC (08:50)
[2018-11-29] MEDS: FEBUXOSTAT 40 MG TABLET PO (09:52)
[2018-11-29] MEDS ORDERED: INSULIN LISPRO 100 UNIT/ML VIAL SC (17:25)
[2018-11-29] MEDS: ATORVASTATIN 40 MG TAB PO (20:37)
[2018-11-29] MEDS: INSULIN GLARGINE [LANTus] (100 UNITS/ML) SYG SC (20:41)
[2018-11-29] MEDS: LACTOBACILLUS RHAMNOSUS CAP PO (20:46)
[2018-11-30] MEDS: ACCU-CHEK XX (02:00)
[2018-11-30 06:02] LABS: ADD MAN DIFF? NO
[2018-11-30 06:08] LABS: BASOPHIL # 0.1 10^3/ul (0.0-0.1); BASOPHILS % 0.8 % (0.0-2.0); EOSINOPHILS # 0.5 10^3/ul (0.0-0.5); EOSINOPHILS % 7.4 % (0.0-7.0); HEMATOCRIT 30.8 % (42.0-52.0); LYMPHOCYTES # 0.8 10^3/ul (0.8-2.9); LYMPHOCYTES % 11.2 % (15.0-51.0); MEAN CORPUSCULAR HEMOGLOBIN 27.3 pg (29.0-33.0); MEAN CORPUSCULAR HGB CONC 32.5 g/dl (32.0-37.0); MEAN CORPUSCULAR VOLUME 84.2 fl (82.0-101.0); MEAN PLATELET VOLUME 10.2 fl (7.4-10.4); MONOCYTE # 1.1 10^3/ul (0.3-0.9); MONOCYTES % 15.6 % (0.0-11.0); NEUTROPHIL # 4.7 10^3/ul (1.6-7.5); NEUTROPHILS % 64.6 % (39.0-77.0); PLATELET COUNT 297 10^3/UL (140-415); RED BLOOD COUNT 3.66 10^6/ul (4.70-6.10); RED CELL DISTRIBUTION WIDTH 12.9 % (11.5-14.5)
[2018-11-30 06:08] LABS: WHITE BLOOD COUNT 7.3 10^3/ul (4.8-10.8)
[2018-11-30] MEDS: PANTOPRAZOLE (EC) 40 MG TAB PO (06:20)
[2018-11-30 06:58] LABS: ANION GAP 8 (5-13); BLOOD UREA NITROGEN 82 mg/dl (7-20); CALCIUM 8.8 mg/dl (8.4-10.2); CARBON DIOXIDE 31 mmol/L (21-31); CHLORIDE 96 mmol/L (97-110); CREATININE 3.39 mg/dl (0.61-1.24); GLUCOSE 120 mg/dl (70-220); MAGNESIUM 2.5 mg/dl (1.7-2.5); PHOSPHORUS 4.3 mg/dl (2.5-4.9); POTASSIUM 4.3 mmol/L (3.5-5.1); SODIUM 135 mmol/L (135-144)
[2018-11-30] MEDS: INSULIN ASPART [NOVOLOG] 3 ML PEN SC ×7 (07:55→20:41)
[2018-11-30] MEDS: POLYETHYLENE GLYCOL 17 GM PACKET PO ×2 (09:00→20:41)
[2018-11-30] MEDS ORDERED: ISOSORBIDE MONONITRATE(SR)30 MG TAB PO (09:00)
[2018-11-30] MEDS: CLOPIDOGREL 75 MG TAB PO (09:20)
[2018-11-30] MEDS: FISH OIL 1,000 MG CAP PO ×2 (09:20→20:39)
[2018-11-30] MEDS: FEBUXOSTAT 40 MG TABLET PO (09:21)
[2018-11-30] MEDS: ISOSORBIDE MONONITRATE(SR)30 MG TAB PO (09:22)
[2018-11-30] MEDS: NIFEdipine (XL) 30 MG TAB PO (09:22)
[2018-11-30] MEDS: ASPIRIN (EC) 81 MG TAB PO (09:23)
[2018-11-30] MEDS: LACTOBACILLUS RHAMNOSUS CAP PO ×2 (09:23→20:39)
[2018-11-30] MEDS: ENOXAPARIN 30 MG/0.3 ML SYG SC (09:28)
[2018-11-30] MEDS: ATORVASTATIN 40 MG TAB PO (20:40)
[2018-11-30] MEDS: INSULIN GLARGINE [LANTus] (100 UNITS/ML) SYG SC (20:50)
[2018-12-01] MEDS: ACCU-CHEK XX (01:42)
[2018-12-01] MEDS: PANTOPRAZOLE (EC) 40 MG TAB PO (05:41)
[2018-12-01 06:37] LABS: ANION GAP 8 (5-13); BLOOD UREA NITROGEN 78 mg/dl (7-20); CALCIUM 8.7 mg/dl (8.4-10.2); CARBON DIOXIDE 29 mmol/L (21-31); CHLORIDE 99 mmol/L (97-110); CREATININE 3.12 mg/dl (0.61-1.24); GLUCOSE 152 mg/dl (70-220); MAGNESIUM 2.5 mg/dl (1.7-2.5); PHOSPHORUS 4.3 mg/dl (2.5-4.9); POTASSIUM 4.4 mmol/L (3.5-5.1); SODIUM 136 mmol/L (135-144)
[2018-12-01] MEDS: INSULIN ASPART [NOVOLOG] 3 ML PEN SC ×7 (08:08→21:00)
[2018-12-01] MEDS: POLYETHYLENE GLYCOL 17 GM PACKET PO ×2 (08:25→21:03)
[2018-12-01] MEDS: LACTOBACILLUS RHAMNOSUS CAP PO ×2 (08:25→21:02)
[2018-12-01] MEDS: NIFEdipine (XL) 30 MG TAB PO (08:26)
[2018-12-01] MEDS: ISOSORBIDE MONONITRATE(SR)30 MG TAB PO (08:26)
[2018-12-01] MEDS: ASPIRIN (EC) 81 MG TAB PO (08:27)
[2018-12-01] MEDS: CLOPIDOGREL 75 MG TAB PO (08:27)
[2018-12-01] MEDS: FISH OIL 1,000 MG CAP PO ×2 (08:27→21:01)
[2018-12-01] MEDS: ENOXAPARIN 30 MG/0.3 ML SYG SC (08:39)
[2018-12-01] MEDS: FEBUXOSTAT 40 MG TABLET PO (12:14)
[2018-12-01] MEDS: ATORVASTATIN 40 MG TAB PO (21:01)
[2018-12-01] MEDS: INSULIN GLARGINE [LANTus] (100 UNITS/ML) SYG SC (21:15)
[2018-12-02] MEDS: ACCU-CHEK XX (02:00)
[2018-12-02 07:36] LABS: ANION GAP 10 (5-13); BLOOD UREA NITROGEN 80 mg/dl (7-20); CARBON DIOXIDE 27 mmol/L (21-31); CHLORIDE 102 mmol/L (97-110); CREATININE 3.01 mg/dl (0.61-1.24); GLUCOSE 130 mg/dl (70-220); MAGNESIUM 2.5 mg/dl (1.7-2.5); PHOSPHORUS 4.3 mg/dl (2.5-4.9); POTASSIUM 4.3 mmol/L (3.5-5.1); SODIUM 139 mmol/L (135-144)
[2018-12-02] MEDS: PANTOPRAZOLE (EC) 40 MG TAB PO (07:40)
[2018-12-02] MEDS: INSULIN ASPART [NOVOLOG] 3 ML PEN SC ×7 (07:55→21:00)
[2018-12-02] MEDS: CLOPIDOGREL 75 MG TAB PO (09:04)
[2018-12-02] MEDS: FISH OIL 1,000 MG CAP PO ×2 (09:04→20:34)
[2018-12-02] MEDS: ASPIRIN (EC) 81 MG TAB PO (09:04)
[2018-12-02] MEDS: NIFEdipine (XL) 30 MG TAB PO (09:05)
[2018-12-02] MEDS: ISOSORBIDE MONONITRATE(SR)30 MG TAB PO (09:05)
[2018-12-02] MEDS: POLYETHYLENE GLYCOL 17 GM PACKET PO ×2 (09:05→20:38)
[2018-12-02] MEDS: FEBUXOSTAT 40 MG TABLET PO (09:06)
[2018-12-02] MEDS: ENOXAPARIN 30 MG/0.3 ML SYG SC (09:06)
[2018-12-02] MEDS: BUMETANIDE 1 MG TAB PO (09:33)
[2018-12-02] MEDS: LACTOBACILLUS RHAMNOSUS CAP PO ×2 (09:33→20:34)
[2018-12-02] MEDS: ATORVASTATIN 40 MG TAB PO (20:34)
[2018-12-02] MEDS: INSULIN GLARGINE [LANTus] (100 UNITS/ML) SYG SC (20:47)
[2018-12-03] MEDS: ACCU-CHEK XX (02:00)
[2018-12-03] MEDS: PANTOPRAZOLE (EC) 40 MG TAB PO (06:03)
[2018-12-03] MEDS: INSULIN ASPART [NOVOLOG] 3 ML PEN SC ×7 (07:55→21:23)
[2018-12-03] MEDS: LACTOBACILLUS RHAMNOSUS CAP PO ×2 (08:28→21:09)
[2018-12-03] MEDS: ISOSORBIDE MONONITRATE(SR)30 MG TAB PO (08:29)
[2018-12-03] MEDS: CLOPIDOGREL 75 MG TAB PO (08:29)
[2018-12-03] MEDS: BUMETANIDE 1 MG TAB PO (08:29)
[2018-12-03] MEDS: NIFEdipine (XL) 60 MG TAB PO (08:30)
[2018-12-03] MEDS: ASPIRIN (EC) 81 MG TAB PO (08:30)
[2018-12-03] MEDS: POLYETHYLENE GLYCOL 17 GM PACKET PO ×2 (08:31→21:00)
[2018-12-03] MEDS: FISH OIL 1,000 MG CAP PO ×2 (08:31→21:09)
[2018-12-03] MEDS: ENOXAPARIN 30 MG/0.3 ML SYG SC (08:39)
[2018-12-03 08:51] LABS: ANION GAP 8 (5-13); BLOOD UREA NITROGEN 80 mg/dl (7-20); CALCIUM 9.2 mg/dl (8.4-10.2); CARBON DIOXIDE 27 mmol/L (21-31); CHLORIDE 105 mmol/L (97-110); CREATININE 3.02 mg/dl (0.61-1.24); GLUCOSE 102 mg/dl (70-220); MAGNESIUM 2.6 mg/dl (1.7-2.5); PHOSPHORUS 4.6 mg/dl (2.5-4.9); POTASSIUM 4.3 mmol/L (3.5-5.1); SODIUM 140 mmol/L (135-144)
[2018-12-03] MEDS: FEBUXOSTAT 40 MG TABLET PO (10:40)
[2018-12-03] MEDS: ATORVASTATIN 40 MG TAB PO (21:09)
[2018-12-03] MEDS: INSULIN GLARGINE [LANTus] (100 UNITS/ML) SYG SC (21:23)
[2018-12-04] MEDS: ACCU-CHEK XX (02:00)
[2018-12-04] MEDS: PANTOPRAZOLE (EC) 40 MG TAB PO (06:27)
[2018-12-04] MEDS: INSULIN ASPART [NOVOLOG] 3 ML PEN SC ×7 (06:31→20:29)
[2018-12-04 07:13] LABS: ANION GAP 12 (5-13); BLOOD UREA NITROGEN 74 mg/dl (7-20); CALCIUM 9.1 mg/dl (8.4-10.2); CARBON DIOXIDE 29 mmol/L (21-31); CHLORIDE 100 mmol/L (97-110); GLUCOSE 105 mg/dl (70-220); MAGNESIUM 2.3 mg/dl (1.7-2.5); PHOSPHORUS 4.4 mg/dl (2.5-4.9); POTASSIUM 4.2 mmol/L (3.5-5.1); SODIUM 141 mmol/L (135-144)
[2018-12-04] MEDS: FEBUXOSTAT 40 MG TABLET PO (09:00)
[2018-12-04] MEDS: POLYETHYLENE GLYCOL 17 GM PACKET PO ×2 (09:00→20:17)
[2018-12-04] MEDS: ISOSORBIDE MONONITRATE(SR)30 MG TAB PO (09:00)
[2018-12-04] MEDS: ASPIRIN (EC) 81 MG TAB PO (09:25)
[2018-12-04] MEDS: BUMETANIDE 1 MG TAB PO (09:25)
[2018-12-04] MEDS: CLOPIDOGREL 75 MG TAB PO (09:25)
[2018-12-04] MEDS: FISH OIL 1,000 MG CAP PO ×2 (09:26→20:16)
[2018-12-04] MEDS: NIFEdipine (XL) 60 MG TAB PO (09:26)
[2018-12-04] MEDS: LACTOBACILLUS RHAMNOSUS CAP PO ×2 (09:26→20:17)
[2018-12-04] MEDS: ENOXAPARIN 30 MG/0.3 ML SYG SC (10:33)
[2018-12-04] MEDS: ATORVASTATIN 40 MG TAB PO (20:17)
[2018-12-04] MEDS: INSULIN GLARGINE [LANTus] (100 UNITS/ML) SYG SC (20:29)
[2018-12-04] MEDS: traZODone 50 MG TAB PO (22:30)
[2018-12-05] MEDS: ACCU-CHEK XX (01:06)
[2018-12-05] MEDS: PANTOPRAZOLE (EC) 40 MG TAB PO (05:12)
[2018-12-05 06:46] LABS: ADD MAN DIFF? NO
[2018-12-05 06:54] LABS: WHITE BLOOD COUNT 7.8 10^3/ul (4.8-10.8)
[2018-12-05 06:54] LABS: BASOPHIL # 0.1 10^3/ul (0.0-0.1); BASOPHILS % 0.8 % (0.0-2.0); EOSINOPHILS # 0.5 10^3/ul (0.0-0.5); EOSINOPHILS % 6.1 % (0.0-7.0); HEMATOCRIT 31.5 % (42.0-52.0); LYMPHOCYTES # 1.1 10^3/ul (0.8-2.9); LYMPHOCYTES % 13.7 % (15.0-51.0); MEAN CORPUSCULAR HEMOGLOBIN 27.3 pg (29.0-33.0); MEAN CORPUSCULAR HGB CONC 31.7 g/dl (32.0-37.0); MEAN CORPUSCULAR VOLUME 86.1 fl (82.0-101.0); MEAN PLATELET VOLUME 10.2 fl (7.4-10.4); MONOCYTES % 12.8 % (0.0-11.0); NEUTROPHIL # 5.2 10^3/ul (1.6-7.5); NEUTROPHILS % 66.2 % (39.0-77.0); PLATELET COUNT 325 10^3/UL (140-415); RED BLOOD COUNT 3.66 10^6/ul (4.70-6.10)
[2018-12-05 07:19] LABS: MAGNESIUM 2.2 mg/dl (1.7-2.5)
[2018-12-05 07:22] LABS: ALANINE AMINOTRANSFERASE 19 IU/L (13-69); ALBUMIN 2.9 g/dl (3.3-4.9); ALBUMIN/GLOBULIN RATIO 1.07; ALKALINE PHOSPHATASE 87 IU/L (42-121); ANION GAP 8 (5-13); ASPARTATE AMINO TRANSFERASE 20 IU/L (15-46); BILIRUBIN,INDIRECT 0.1 mg/dl (0-1.1); BILIRUBIN,TOTAL 0.1 mg/dl (0.2-1.3); BLOOD UREA NITROGEN 78 mg/dl (7-20); CARBON DIOXIDE 29 mmol/L (21-31); CHLORIDE 104 mmol/L (97-110); CREATININE 2.93 mg/dl (0.61-1.24); GLUCOSE 103 mg/dl (70-220); POTASSIUM 4.1 mmol/L (3.5-5.1); SODIUM 141 mmol/L (135-144); TOTAL PROTEIN 5.6 g/dl (6.1-8.1)
[2018-12-05] MEDS: INSULIN ASPART [NOVOLOG] 3 ML PEN SC ×4 (07:55→12:45)
[2018-12-05] MEDS: BUMETANIDE 1 MG TAB PO (09:54)
[2018-12-05] MEDS: FISH OIL 1,000 MG CAP PO (09:54)
[2018-12-05] MEDS: ASPIRIN (EC) 81 MG TAB PO (09:54)
[2018-12-05] MEDS: LACTOBACILLUS RHAMNOSUS CAP PO (09:54)
[2018-12-05] MEDS: NIFEdipine (XL) 60 MG TAB PO (09:55)
[2018-12-05] MEDS: CLOPIDOGREL 75 MG TAB PO (09:55)
[2018-12-05] MEDS: ISOSORBIDE MONONITRATE(SR)30 MG TAB PO (09:55)
[2018-12-05] MEDS: POLYETHYLENE GLYCOL 17 GM PACKET PO (09:55)
[2018-12-05] MEDS: ENOXAPARIN 30 MG/0.3 ML SYG SC (10:19)
[2018-12-05] MEDS: FEBUXOSTAT 40 MG TABLET PO (13:19)
== END 2018-12-05 18:50 | disposition home health service (06) | DRG 291 ==
LOC: MS3 19:05 → E/R 14:25 → TEL 11-22 23:59
PROVIDERS: Internal Medicine
DX: I13.0 Hypertensive heart and chronic kidney disease with heart failure and stage 1 through stage 4 chronic kidney disease, or unspecified chronic kidney disease (principal); I50.23 Acute on chronic systolic (congestive) heart failure; J96.01 Acute respiratory failure with hypoxia; N18.4 Chronic kidney disease, stage 4 (severe); N17.9 Acute kidney failure, unspecified; I47.2 Ventricular tachycardia; E87.3 Alkalosis; E11.22 Type 2 diabetes mellitus with diabetic chronic kidney disease; I16.0 Hypertensive urgency; I25.10 Atherosclerotic heart disease of native coronary artery without angina pectoris; M10.9 Gout, unspecified; E78.5 Hyperlipidemia, unspecified; N40.0 Benign prostatic hyperplasia without lower urinary tract symptoms; R62.7 Adult failure to thrive; R25.1 Tremor, unspecified; I25.5 Ischemic cardiomyopathy; Z95.5 Presence of coronary angioplasty implant and graft; Z79.4 Long term (current) use of insulin
CPT/HCPCS: 36415; 71045; 80048; 80053; 81001; 81003; 82043; 82550; 82553; 82962; 83036; 83605; 83735; 83880; 84100; 84155; 84300; 84443; 84484; 84560; 85025; 85610; 85730; 93005; 96374; 97116; 97162; 97530; 99285-25

== ENCOUNTER 2019-01-07 21:20 | Inpatient (IN) | payer OTHER, MEDICAID ==
[2019-01-07 22:25] LABS: ADD MAN DIFF? NO
[2019-01-07 22:26] LABS: BASOPHIL # 0.1 10^3/ul (0.0-0.1); BASOPHILS % 0.9 % (0.0-2.0); EOSINOPHILS # 0.4 10^3/ul (0.0-0.5); EOSINOPHILS % 5.3 % (0.0-7.0); HEMATOCRIT 35.8 % (42.0-52.0); HEMOGLOBIN 11.7 g/dl (14.0-18.0); LYMPHOCYTES # 0.9 10^3/ul (0.8-2.9); LYMPHOCYTES % 11.7 % (15.0-51.0); MEAN CORPUSCULAR HEMOGLOBIN 27.1 pg (29.0-33.0); MEAN CORPUSCULAR HGB CONC 32.7 g/dl (32.0-37.0); MEAN CORPUSCULAR VOLUME 83.1 fl (82.0-101.0); MEAN PLATELET VOLUME 9.6 fl (7.4-10.4); MONOCYTES % 12.6 % (0.0-11.0); NEUTROPHIL # 5.2 10^3/ul (1.6-7.5); NEUTROPHILS % 69.2 % (39.0-77.0); PLATELET COUNT 265 10^3/UL (140-415); RED BLOOD COUNT 4.31 10^6/ul (4.70-6.10); RED CELL DISTRIBUTION WIDTH 14.2 % (11.5-14.5)
[2019-01-07 22:26] LABS: WHITE BLOOD COUNT 7.6 10^3/ul (4.8-10.8)
[2019-01-07 22:43] LABS: ALANINE AMINOTRANSFERASE 7 IU/L (13-69); ALBUMIN 3.9 g/dl (3.3-4.9); ALBUMIN/GLOBULIN RATIO 1.25; ALKALINE PHOSPHATASE 114 IU/L (42-121); ANION GAP 11 (5-13); ASPARTATE AMINO TRANSFERASE 17 IU/L (15-46); BILIRUBIN,INDIRECT 0.5 mg/dl (0-1.1); BILIRUBIN,TOTAL 0.5 mg/dl (0.2-1.3); BLOOD UREA NITROGEN 44 mg/dl (7-20); CALCIUM 9.3 mg/dl (8.4-10.2); CARBON DIOXIDE 26 mmol/L (21-31); CHLORIDE 98 mmol/L (97-110); GLUCOSE 310 mg/dl (70-220); POTASSIUM 4.4 mmol/L (3.5-5.1); SODIUM 135 mmol/L (135-144)
[2019-01-07] MEDS: ASPIRIN 325 MG TAB PO (22:50)
[2019-01-07] MEDS: NITROGLYCERIN 2% 1 GM OINT PKT TD (22:50)
[2019-01-07] MEDS: FUROSEMIDE 40 MG INJ IV (22:51)
[2019-01-07 22:54] LABS: B-TYPE NATRIURETIC PEPTIDE 11800 PG/ML (0-125); TROPONIN-I 0.055 ng/ml (0.000-0.120)
[2019-01-07] MEDS: ALBUTEROL 0.083% (NEB) 2.5 MG/3 ML AMP NEB (23:28)
[2019-01-08] MEDS ORDERED: NACL 0.9% 3 ML SYG IV (00:30)
[2019-01-08] MEDS ORDERED: ACETAMINOPHEN 325 MG TAB PO (00:30)
[2019-01-08] MEDS ORDERED: ONDANSETRON 4 MG INJ IV ×2 (00:30)
[2019-01-08] MEDS ORDERED: GLUCOSE GEL 15 GRAM TUBE BUCCAL (01:00)
[2019-01-08] MEDS ORDERED: DEXTROSE 50% 50 ML SYRINGE IV ×2 (01:00)
[2019-01-08] MEDS ORDERED: GLUCOSE GEL 15 GRAM TUBE PO ×2 (01:00)
[2019-01-08] MEDS ORDERED: GLUCAGON 1 MG INJ IM (01:00)
[2019-01-08] MEDS: ACCU-CHEK XX (02:12)
[2019-01-08] MEDS: hydrALAzine 20 MG INJ IV (03:38)
[2019-01-08] MEDS: FUROSEMIDE 40 MG INJ IV ×2 (06:24→15:04)
[2019-01-08 06:26] LABS: CREATINE KINASE 41 IU/L (23-200)
[2019-01-08 06:35] LABS: CK-MB 0.93 ng/ml (0.0-2.4); TROPONIN-I 0.083 ng/ml (0.000-0.120)
[2019-01-08 07:03] LABS: CK INDEX 2.3
[2019-01-08] MEDS ORDERED: INSULIN ASPART [NOVOLOG] 3 ML PEN SC (08:00)
[2019-01-08] MEDS ORDERED: NON-FORMULARY/PATIENT OWN MED (Liraglutide (Victoza 3-Pak) 1.8 MG) SQ (09:00)
[2019-01-08] MEDS: ENOXAPARIN 30 MG/0.3 ML SYG SC (09:44)
[2019-01-08] MEDS: INSULIN ASPART [NOVOLOG] 3 ML PEN SC ×4 (10:30→21:05)
[2019-01-08 10:33] LABS: ADD MAN DIFF? NO
[2019-01-08 10:36] LABS: WHITE BLOOD COUNT 10.1 10^3/ul (4.8-10.8)
[2019-01-08 10:36] LABS: BASOPHIL # 0.1 10^3/ul (0.0-0.1); BASOPHILS % 0.9 % (0.0-2.0); EOSINOPHILS # 0.4 10^3/ul (0.0-0.5); EOSINOPHILS % 3.5 % (0.0-7.0); HEMATOCRIT 34.3 % (42.0-52.0); HEMOGLOBIN 11.4 g/dl (14.0-18.0); LYMPHOCYTES # 0.6 10^3/ul (0.8-2.9); LYMPHOCYTES % 6.1 % (15.0-51.0); MEAN CORPUSCULAR HEMOGLOBIN 27.5 pg (29.0-33.0); MEAN CORPUSCULAR HGB CONC 33.2 g/dl (32.0-37.0); MEAN CORPUSCULAR VOLUME 82.7 fl (82.0-101.0); MEAN PLATELET VOLUME 10.2 fl (7.4-10.4); MONOCYTES % 10.3 % (0.0-11.0); NEUTROPHILS % 78.8 % (39.0-77.0); PLATELET COUNT 252 10^3/UL (140-415); RED BLOOD COUNT 4.15 10^6/ul (4.70-6.10); RED CELL DISTRIBUTION WIDTH 14.4 % (11.5-14.5)
[2019-01-08 10:56] LABS: ALANINE AMINOTRANSFERASE 17 IU/L (13-69); ALBUMIN 3.5 g/dl (3.3-4.9); ALBUMIN/GLOBULIN RATIO 1.45; ALKALINE PHOSPHATASE 94 IU/L (42-121); ANION GAP 11 (5-13); ASPARTATE AMINO TRANSFERASE 14 IU/L (15-46); BILIRUBIN,INDIRECT 0.5 mg/dl (0-1.1); BILIRUBIN,TOTAL 0.5 mg/dl (0.2-1.3); BLOOD UREA NITROGEN 44 mg/dl (7-20); CALCIUM 9.2 mg/dl (8.4-10.2); CARBON DIOXIDE 27 mmol/L (21-31); CHLORIDE 99 mmol/L (97-110); GLUCOSE 309 mg/dl (70-220); POTASSIUM 4.3 mmol/L (3.5-5.1); SODIUM 137 mmol/L (135-144); TOTAL PROTEIN 5.9 g/dl (6.1-8.1)
[2019-01-08 10:57] LABS: CREATINE KINASE 44 IU/L (23-200)
[2019-01-08] MEDS: [UNRECOGNIZED DRUG - OTHER] XX ×2 (11:00→19:00)
[2019-01-08 11:08] LABS: CK INDEX 1.9; CK-MB 0.82 ng/ml (0.0-2.4); TROPONIN-I 0.062 ng/ml (0.000-0.120)
[2019-01-08] MEDS: FISH OIL 1,000 MG CAP PO ×2 (12:20→20:58)
[2019-01-08 15:48] LABS: ADD UMIC YES; UR ASCORBIC ACID NEGATIVE (NEGATIVE); UR BILIRUBIN (Dip) NEGATIVE (NEGATIVE); UR BLOOD (Dip) NEGATIVE (NEGATIVE); UR CLARITY CLEAR (CLEAR); UR COLOR STRAW (YELLOW); UR GLUCOSE (Dip) NEGATIVE (NEGATIVE); UR KETONES (Dip) NEGATIVE (NEGATIVE); UR LEUKOCYTE ESTERASE (Dip) NEGATIVE Leu/ul (NEGATIVE); UR NITRITE (Dip) NEGATIVE (NEGATIVE); UR RBC 5 /HPF (0-5); UR SPECIFIC GRAVITY (Dip) 1.008 (1.003-1.030); UR TOTAL PROTEIN (Dip) 2+ mg/dl (NEGATIVE); UR UROBILINOGEN (Dip) NEGATIVE (NEGATIVE); UR WBC 1 /HPF (0-5)
[2019-01-08 15:55] LABS: CREATININE,URINE RANDOM 40.98 mg/dl (20-370)
[2019-01-08 15:55] LABS: SODIUM,URINE RANDOM 64 mmol/L (30-90)
[2019-01-08] MEDS: DOCUSATE SODIUM 100 MG CAP PO (18:36)
[2019-01-08] MEDS: ATORVASTATIN 40 MG TAB PO (20:58)
[2019-01-08] MEDS: INSULIN GLARGINE [LANTus] (100 UNITS/ML) SYG SC (21:06)
[2019-01-08] MEDS: BISACODYL (EC) 5 MG TAB PO (21:16)
[2019-01-09] MEDS ORDERED: ACCU-CHEK XX (02:00)
[2019-01-09] MEDS: ACCU-CHEK XX (02:17)
[2019-01-09] MEDS: [UNRECOGNIZED DRUG - OTHER] XX ×3 (03:00→19:00)
[2019-01-09 05:58] LABS: ADD MAN DIFF? NO
[2019-01-09] MEDS: PANTOPRAZOLE (EC) 40 MG TAB PO (05:59)
[2019-01-09 06:26] LABS: WHITE BLOOD COUNT 9.7 10^3/ul (4.8-10.8)
[2019-01-09 06:26] LABS: BASOPHIL # 0.1 10^3/ul (0.0-0.1); BASOPHILS % 0.8 % (0.0-2.0); EOSINOPHILS # 0.5 10^3/ul (0.0-0.5); EOSINOPHILS % 4.7 % (0.0-7.0); HEMATOCRIT 35.1 % (42.0-52.0); HEMOGLOBIN 11.4 g/dl (14.0-18.0); LYMPHOCYTES # 1.1 10^3/ul (0.8-2.9); LYMPHOCYTES % 11.4 % (15.0-51.0); MEAN CORPUSCULAR HEMOGLOBIN 27.1 pg (29.0-33.0); MEAN CORPUSCULAR HGB CONC 32.5 g/dl (32.0-37.0); MEAN CORPUSCULAR VOLUME 83.6 fl (82.0-101.0); MEAN PLATELET VOLUME 10.5 fl (7.4-10.4); MONOCYTE # 1.2 10^3/ul (0.3-0.9); MONOCYTES % 12.5 % (0.0-11.0); NEUTROPHIL # 6.8 10^3/ul (1.6-7.5); NEUTROPHILS % 70.3 % (39.0-77.0); PLATELET COUNT 270 10^3/UL (140-415); RED CELL DISTRIBUTION WIDTH 14.6 % (11.5-14.5)
[2019-01-09 06:56] LABS: TROPONIN-I 0.087 ng/ml (0.000-0.120)
[2019-01-09 07:00] LABS: ALANINE AMINOTRANSFERASE 12 IU/L (13-69); ALBUMIN 3.6 g/dl (3.3-4.9); ALBUMIN/GLOBULIN RATIO 1.24; ALKALINE PHOSPHATASE 89 IU/L (42-121); ANION GAP 15 (5-13); ASPARTATE AMINO TRANSFERASE 17 IU/L (15-46); BILIRUBIN,INDIRECT 0.5 mg/dl (0-1.1); BILIRUBIN,TOTAL 0.5 mg/dl (0.2-1.3); BLOOD UREA NITROGEN 55 mg/dl (7-20); CALCIUM 9.3 mg/dl (8.4-10.2); CARBON DIOXIDE 26 mmol/L (21-31); CHLORIDE 98 mmol/L (97-110); CREATININE 2.81 mg/dl (0.61-1.24); GLUCOSE 162 mg/dl (70-220); POTASSIUM 3.7 mmol/L (3.5-5.1); SODIUM 139 mmol/L (135-144); TOTAL PROTEIN 6.5 g/dl (6.1-8.1)
[2019-01-09 07:02] LABS: PHOSPHORUS 4.3 mg/dl (2.5-4.9)
[2019-01-09] MEDS: INSULIN ASPART [NOVOLOG] 3 ML PEN SC ×4 (07:41→21:18)
[2019-01-09] MEDS: ISOSORBIDE MONONITRATE(SR)30 MG TAB PO (09:24)
[2019-01-09] MEDS: CLOPIDOGREL 75 MG TAB PO (09:24)
[2019-01-09] MEDS: FEBUXOSTAT 40 MG TABLET PO (09:24)
[2019-01-09] MEDS: ASPIRIN (EC) 81 MG TAB PO (09:25)
[2019-01-09] MEDS: NIFEdipine (XL) 60 MG TAB PO (09:25)
[2019-01-09] MEDS: FISH OIL 1,000 MG CAP PO ×2 (09:25→21:09)
[2019-01-09] MEDS: FUROSEMIDE 40 MG INJ IV ×2 (09:25→17:29)
[2019-01-09] MEDS: ENOXAPARIN 30 MG/0.3 ML SYG SC (09:37)
[2019-01-09] MEDS: ATORVASTATIN 40 MG TAB PO (21:08)
[2019-01-09] MEDS: LACTOBACILLUS RHAMNOSUS CAP PO (21:09)
[2019-01-09] MEDS: INSULIN GLARGINE [LANTus] (100 UNITS/ML) SYG SC (21:17)
[2019-01-10] MEDS: ACCU-CHEK XX (02:18)
[2019-01-10] MEDS: [UNRECOGNIZED DRUG - OTHER] XX ×3 (03:00→19:00)
[2019-01-10] MEDS: FUROSEMIDE 40 MG INJ IV (05:39)
[2019-01-10] MEDS: PANTOPRAZOLE (EC) 40 MG TAB PO (05:39)
[2019-01-10 07:02] LABS: ADD MAN DIFF? NO
[2019-01-10 07:21] LABS: BASOPHIL # 0.1 10^3/ul (0.0-0.1); BASOPHILS % 0.7 % (0.0-2.0); EOSINOPHILS # 0.4 10^3/ul (0.0-0.5); EOSINOPHILS % 4.3 % (0.0-7.0); HEMOGLOBIN 10.4 g/dl (14.0-18.0); LYMPHOCYTES # 0.9 10^3/ul (0.8-2.9); LYMPHOCYTES % 10.2 % (15.0-51.0); MEAN CORPUSCULAR HEMOGLOBIN 27.3 pg (29.0-33.0); MEAN CORPUSCULAR HGB CONC 32.5 g/dl (32.0-37.0); MEAN PLATELET VOLUME 10.5 fl (7.4-10.4); MONOCYTE # 1.2 10^3/ul (0.3-0.9); MONOCYTES % 13.8 % (0.0-11.0); NEUTROPHIL # 6.1 10^3/ul (1.6-7.5); NEUTROPHILS % 70.7 % (39.0-77.0); PLATELET COUNT 259 10^3/UL (140-415); RED BLOOD COUNT 3.81 10^6/ul (4.70-6.10); RED CELL DISTRIBUTION WIDTH 14.5 % (11.5-14.5)
[2019-01-10 07:21] LABS: WHITE BLOOD COUNT 8.7 10^3/ul (4.8-10.8)
[2019-01-10 07:54] LABS: ANION GAP 15 (5-13); BLOOD UREA NITROGEN 62 mg/dl (7-20); CALCIUM 9.2 mg/dl (8.4-10.2); CARBON DIOXIDE 27 mmol/L (21-31); CHLORIDE 98 mmol/L (97-110); CREATININE 3.06 mg/dl (0.61-1.24); GLUCOSE 135 mg/dl (70-220); MAGNESIUM 1.9 mg/dl (1.7-2.5); PHOSPHORUS 4.4 mg/dl (2.5-4.9); POTASSIUM 3.3 mmol/L (3.5-5.1); SODIUM 140 mmol/L (135-144)
[2019-01-10] MEDS: INSULIN ASPART [NOVOLOG] 3 ML PEN SC ×4 (08:37→21:26)
[2019-01-10] MEDS: FISH OIL 1,000 MG CAP PO ×2 (09:26→21:00)
[2019-01-10] MEDS: FEBUXOSTAT 40 MG TABLET PO (09:26)
[2019-01-10] MEDS: CLOPIDOGREL 75 MG TAB PO (09:26)
[2019-01-10] MEDS: ISOSORBIDE MONONITRATE(SR)30 MG TAB PO (09:26)
[2019-01-10] MEDS: ASPIRIN (EC) 81 MG TAB PO (09:26)
[2019-01-10] MEDS: NIFEdipine (XL) 60 MG TAB PO (09:27)
[2019-01-10] MEDS: ENOXAPARIN 30 MG/0.3 ML SYG SC (09:39)
[2019-01-10] MEDS: LACTOBACILLUS RHAMNOSUS CAP PO ×2 (10:07→21:00)
[2019-01-10] MEDS: POTASSIUM CHLORIDE (SR) 20 MEQ TAB PO (10:08)
[2019-01-10] MEDS: ACETAMINOPHEN 325 MG TAB PO (14:07)
[2019-01-10 15:36] LABS: CREATININE, RANDOM URINE 42 mg/dL (20-320); MICROALBUMIN 92.1 mg/dL; MICROALBUMIN/CREATININE RATIO 2193 (<30)
[2019-01-10] MEDS: ATORVASTATIN 40 MG TAB PO (21:00)
[2019-01-10] MEDS: INSULIN GLARGINE [LANTus] (100 UNITS/ML) SYG SC (21:26)
[2019-01-11] MEDS: ACCU-CHEK XX (01:24)
[2019-01-11] MEDS: [UNRECOGNIZED DRUG - OTHER] XX ×3 (03:00→19:00)
[2019-01-11 05:27] LABS: ADD MAN DIFF? NO
[2019-01-11 05:34] LABS: WHITE BLOOD COUNT 8.1 10^3/ul (4.8-10.8)
[2019-01-11 05:34] LABS: ABNORMAL IP MESSAGE 1; BASOPHILS % 0.5 % (0.0-2.0); EOSINOPHILS # 0.2 10^3/ul (0.0-0.5); EOSINOPHILS % 2.7 % (0.0-7.0); HEMATOCRIT 30.9 % (42.0-52.0); LYMPHOCYTES # 0.5 10^3/ul (0.8-2.9); LYMPHOCYTES % 6.3 % (15.0-51.0); MEAN CORPUSCULAR HEMOGLOBIN 27.2 pg (29.0-33.0); MEAN CORPUSCULAR HGB CONC 32.4 g/dl (32.0-37.0); MEAN CORPUSCULAR VOLUME 84.2 fl (82.0-101.0); MEAN PLATELET VOLUME 10.2 fl (7.4-10.4); MONOCYTE # 1.1 10^3/ul (0.3-0.9); NEUTROPHIL # 6.2 10^3/ul (1.6-7.5); NEUTROPHILS % 76.3 % (39.0-77.0); PLATELET COUNT 231 10^3/UL (140-415); POSITIVE DIFF @See below; RED BLOOD COUNT 3.67 10^6/ul (4.70-6.10); RED CELL DISTRIBUTION WIDTH 14.3 % (11.5-14.5)
[2019-01-11] MEDS: PANTOPRAZOLE (EC) 40 MG TAB PO (06:03)
[2019-01-11 06:15] LABS: ANION GAP 15 (5-13); BLOOD UREA NITROGEN 74 mg/dl (7-20); CALCIUM 8.9 mg/dl (8.4-10.2); CARBON DIOXIDE 25 mmol/L (21-31); CHLORIDE 100 mmol/L (97-110); CREATININE 3.18 mg/dl (0.61-1.24); GLUCOSE 128 mg/dl (70-220); PHOSPHORUS 4.1 mg/dl (2.5-4.9); POTASSIUM 3.3 mmol/L (3.5-5.1); SODIUM 140 mmol/L (135-144)
[2019-01-11] MEDS: INSULIN ASPART [NOVOLOG] 3 ML PEN SC ×4 (07:59→20:24)
[2019-01-11] MEDS ORDERED: FUROSEMIDE 40 MG TAB PO (09:00)
[2019-01-11] MEDS: CLOPIDOGREL 75 MG TAB PO (09:20)
[2019-01-11] MEDS: FEBUXOSTAT 40 MG TABLET PO (09:20)
[2019-01-11] MEDS: LACTOBACILLUS RHAMNOSUS CAP PO ×2 (09:21→20:11)
[2019-01-11] MEDS: FISH OIL 1,000 MG CAP PO ×2 (09:21→20:11)
[2019-01-11] MEDS: ASPIRIN (EC) 81 MG TAB PO (09:21)
[2019-01-11] MEDS: ISOSORBIDE MONONITRATE(SR)30 MG TAB PO (09:22)
[2019-01-11] MEDS: NIFEdipine (XL) 60 MG TAB PO (09:23)
[2019-01-11] MEDS: ENOXAPARIN 30 MG/0.3 ML SYG SC (09:24)
[2019-01-11] MEDS: POTASSIUM CHLORIDE (SR) 20 MEQ TAB PO (09:34)
[2019-01-11] MEDS: POLYETHYLENE GLYCOL 17 GM PACKET PO ×2 (11:57→20:13)
[2019-01-11] MEDS: BISACODYL (EC) 5 MG TAB PO (11:58)
[2019-01-11] MEDS: ACETAMINOPHEN 325 MG TAB PO (16:12)
[2019-01-11] MEDS: ATORVASTATIN 40 MG TAB PO (20:11)
[2019-01-11] MEDS: INSULIN GLARGINE [LANTus] (100 UNITS/ML) SYG SC (20:24)
[2019-01-12] MEDS: ACCU-CHEK XX (01:54)
[2019-01-12] MEDS: [UNRECOGNIZED DRUG - OTHER] XX ×2 (03:00→11:00)
[2019-01-12 05:24] LABS: ADD MAN DIFF? NO
[2019-01-12 05:32] LABS: WHITE BLOOD COUNT 8.1 10^3/ul (4.8-10.8)
[2019-01-12 05:32] LABS: BASOPHIL # 0.1 10^3/ul (0.0-0.1); BASOPHILS % 0.6 % (0.0-2.0); EOSINOPHILS # 0.3 10^3/ul (0.0-0.5); EOSINOPHILS % 3.8 % (0.0-7.0); HEMATOCRIT 28.6 % (42.0-52.0); HEMOGLOBIN 9.4 g/dl (14.0-18.0); LYMPHOCYTES # 0.8 10^3/ul (0.8-2.9); LYMPHOCYTES % 9.7 % (15.0-51.0); MEAN CORPUSCULAR HEMOGLOBIN 27.6 pg (29.0-33.0); MEAN CORPUSCULAR HGB CONC 32.9 g/dl (32.0-37.0); MEAN CORPUSCULAR VOLUME 83.9 fl (82.0-101.0); MEAN PLATELET VOLUME 10.7 fl (7.4-10.4); MONOCYTE # 1.2 10^3/ul (0.3-0.9); MONOCYTES % 15.4 % (0.0-11.0); NEUTROPHIL # 5.7 10^3/ul (1.6-7.5); NEUTROPHILS % 70.1 % (39.0-77.0); PLATELET COUNT 233 10^3/UL (140-415); RED BLOOD COUNT 3.41 10^6/ul (4.70-6.10); RED CELL DISTRIBUTION WIDTH 14.4 % (11.5-14.5)
[2019-01-12] MEDS: PANTOPRAZOLE (EC) 40 MG TAB PO (05:57)
[2019-01-12 05:58] LABS: ANION GAP 13 (5-13); BLOOD UREA NITROGEN 71 mg/dl (7-20); CALCIUM 8.9 mg/dl (8.4-10.2); CARBON DIOXIDE 27 mmol/L (21-31); CHLORIDE 101 mmol/L (97-110); CREATININE 2.96 mg/dl (0.61-1.24); GLUCOSE 81 mg/dl (70-220); MAGNESIUM 2.1 mg/dl (1.7-2.5); PHOSPHORUS 3.3 mg/dl (2.5-4.9); POTASSIUM 3.9 mmol/L (3.5-5.1); SODIUM 141 mmol/L (135-144)
[2019-01-12] MEDS: INSULIN ASPART [NOVOLOG] 3 ML PEN SC ×2 (07:51→12:22)
[2019-01-12] MEDS: FEBUXOSTAT 40 MG TABLET PO (09:09)
[2019-01-12] MEDS: CLOPIDOGREL 75 MG TAB PO (09:09)
[2019-01-12] MEDS: ISOSORBIDE MONONITRATE(SR)30 MG TAB PO (09:10)
[2019-01-12] MEDS: ASPIRIN (EC) 81 MG TAB PO (09:10)
[2019-01-12] MEDS: FISH OIL 1,000 MG CAP PO (09:10)
[2019-01-12] MEDS: LACTOBACILLUS RHAMNOSUS CAP PO (09:10)
[2019-01-12] MEDS: POTASSIUM CHLORIDE 20 MEQ POWDER FOR ORAL SOLN PO (09:11)
[2019-01-12] MEDS: POLYETHYLENE GLYCOL 17 GM PACKET PO (09:11)
[2019-01-12] MEDS: NIFEdipine (XL) 60 MG TAB PO (09:11)
[2019-01-12] MEDS: ENOXAPARIN 30 MG/0.3 ML SYG SC (09:21)
[2019-01-13] MEDS ORDERED: FUROSEMIDE 40 MG TAB PO (09:00)
== END 2019-01-12 16:18 | disposition home health service (06) | DRG 291 ==
LOC: E/R 21:20 → 6WM 01-08 00:07
DX: I13.0 Hypertensive heart and chronic kidney disease with heart failure and stage 1 through stage 4 chronic kidney disease, or unspecified chronic kidney disease (principal); I50.23 Acute on chronic systolic (congestive) heart failure; J96.00 Acute respiratory failure, unspecified whether with hypoxia or hypercapnia; N18.4 Chronic kidney disease, stage 4 (severe); N17.9 Acute kidney failure, unspecified; E11.22 Type 2 diabetes mellitus with diabetic chronic kidney disease; I16.0 Hypertensive urgency; I42.9 Cardiomyopathy, unspecified; K21.9 Gastro-esophageal reflux disease without esophagitis; I49.9 Cardiac arrhythmia, unspecified; I45.4 Nonspecific intraventricular block; D63.8 Anemia in other chronic diseases classified elsewhere; M10.9 Gout, unspecified
CPT/HCPCS: 36415; 71045; 80048; 80053; 81001; 81003; 82043; 82550; 82553; 82962; 83735; 83880; 84100; 84155; 84300; 84484; 85025; 93005; 94664; 96374; 97116; 97162; 97530; 99285-25

== ENCOUNTER 2019-02-08 16:15 | Inpatient (IN) | payer OTHER, MEDICAID ==
[2019-02-08] MEDS: ALBUTEROL 0.5% (NEB) 2.5 MG/0.5 ML AMP INH (19:39)
[2019-02-08 19:58] LABS: ADD MAN DIFF? NO
[2019-02-08 20:14] LABS: BASOPHIL # 0.1 10^3/ul (0.0-0.1); EOSINOPHILS # 0.4 10^3/ul (0.0-0.5); EOSINOPHILS % 5.1 % (0.0-7.0); HEMATOCRIT 30.5 % (42.0-52.0); HEMOGLOBIN 9.9 g/dl (14.0-18.0); LYMPHOCYTES # 0.9 10^3/ul (0.8-2.9); LYMPHOCYTES % 12.6 % (15.0-51.0); MEAN CORPUSCULAR HEMOGLOBIN 27.1 pg (29.0-33.0); MEAN CORPUSCULAR HGB CONC 32.5 g/dl (32.0-37.0); MEAN CORPUSCULAR VOLUME 83.6 fl (82.0-101.0); MEAN PLATELET VOLUME 10.1 fl (7.4-10.4); MONOCYTE # 0.8 10^3/ul (0.3-0.9); MONOCYTES % 10.7 % (0.0-11.0); NEUTROPHILS % 70.2 % (39.0-77.0); PLATELET COUNT 274 10^3/UL (140-415); RED BLOOD COUNT 3.65 10^6/ul (4.70-6.10); RED CELL DISTRIBUTION WIDTH 14.5 % (11.5-14.5)
[2019-02-08 20:14] LABS: WHITE BLOOD COUNT 7.1 10^3/ul (4.8-10.8)
[2019-02-08 20:20] LABS: ALANINE AMINOTRANSFERASE 41 IU/L (13-69); ALBUMIN 3.6 g/dl (3.3-4.9); ALBUMIN/GLOBULIN RATIO 1.12; ALKALINE PHOSPHATASE 123 IU/L (42-121); ANION GAP 9 (5-13); ASPARTATE AMINO TRANSFERASE 21 IU/L (15-46); BILIRUBIN,INDIRECT 0.6 mg/dl (0-1.1); BILIRUBIN,TOTAL 0.6 mg/dl (0.2-1.3); BLOOD UREA NITROGEN 60 mg/dl (7-20); CALCIUM 9.4 mg/dl (8.4-10.2); CARBON DIOXIDE 27 mmol/L (21-31); CHLORIDE 102 mmol/L (97-110); CREATININE 2.85 mg/dl (0.61-1.24); GLUCOSE 295 mg/dl (70-220); LIPASE 53 U/L (23-300); POTASSIUM 3.8 mmol/L (3.5-5.1); SODIUM 138 mmol/L (135-144); TOTAL PROTEIN 6.8 g/dl (6.1-8.1)
[2019-02-08 20:23] LABS: INR 1.06; PROTIME 13.9 Sec (11.9-14.9); PT RATIO 1.1
[2019-02-08 20:24] LABS: PARTIAL THROMBOPLASTIN TIME 33.2 Sec (23.0-35.0)
[2019-02-08 20:32] LABS: B-TYPE NATRIURETIC PEPTIDE 23000 PG/ML (0-125)
[2019-02-08 20:36] LABS: TROPONIN-I 0.246 ng/ml (0.000-0.120)
[2019-02-08] MEDS: FUROSEMIDE 40 MG INJ IV (21:22)
[2019-02-08] MEDS ORDERED: DEXTROSE 50% 50 ML SYRINGE IV ×2 (22:30)
[2019-02-08] MEDS ORDERED: GUAIFENESIN/DM 5ML CUP PO (22:30)
[2019-02-08] MEDS ORDERED: NON-FORMULARY/PATIENT OWN MED (Omega-3/Dha/Epa/Fish Oil (Fish Oil Ec 1,000 Mg Softgel) 2,0 PO (22:30)
[2019-02-08] MEDS ORDERED: HYDROCODONE/APAP (5/325) TAB PO (22:30)
[2019-02-08] MEDS ORDERED: hydrALAzine 20 MG INJ IV (22:30)
[2019-02-08] MEDS ORDERED: GLUCOSE GEL 15 GRAM TUBE PO ×2 (22:30)
[2019-02-08] MEDS ORDERED: ACETAMINOPHEN 325 MG TAB PO (22:30)
[2019-02-08] MEDS ORDERED: GLUCOSE GEL 15 GRAM TUBE BUCCAL (22:30)
[2019-02-08] MEDS ORDERED: ONDANSETRON 4 MG INJ IV (22:30)
[2019-02-08] MEDS ORDERED: morphine 2 MG INJ IV (22:30)
[2019-02-08] MEDS ORDERED: NACL 0.9% 3 ML SYG IV (22:30)
[2019-02-08] MEDS ORDERED: GLUCAGON 1 MG INJ IM (22:30)
[2019-02-08] MEDS: ENOXAPARIN 100 MG/ML SYG SC (22:42)
[2019-02-08] MEDS: FISH OIL 1,000 MG CAP PO (22:42)
[2019-02-09] MEDS: INSULIN ASPART [NOVOLOG] 3 ML PEN SC ×6 (01:14→20:40)
[2019-02-09] MEDS: ACCU-CHEK XX (02:12)
[2019-02-09 06:41] LABS: ADD MAN DIFF? NO
[2019-02-09 06:52] LABS: BASOPHIL # 0.1 10^3/ul (0.0-0.1); BASOPHILS % 1.1 % (0.0-2.0); EOSINOPHILS # 0.5 10^3/ul (0.0-0.5); EOSINOPHILS % 6.2 % (0.0-7.0); HEMATOCRIT 28.7 % (42.0-52.0); HEMOGLOBIN 9.3 g/dl (14.0-18.0); LYMPHOCYTES % 13.4 % (15.0-51.0); MEAN CORPUSCULAR HEMOGLOBIN 27.1 pg (29.0-33.0); MEAN CORPUSCULAR HGB CONC 32.4 g/dl (32.0-37.0); MEAN CORPUSCULAR VOLUME 83.7 fl (82.0-101.0); MEAN PLATELET VOLUME 10.7 fl (7.4-10.4); MONOCYTE # 0.9 10^3/ul (0.3-0.9); MONOCYTES % 11.4 % (0.0-11.0); NEUTROPHIL # 5.1 10^3/ul (1.6-7.5); NEUTROPHILS % 67.5 % (39.0-77.0); PLATELET COUNT 274 10^3/UL (140-415); RED BLOOD COUNT 3.43 10^6/ul (4.70-6.10); RED CELL DISTRIBUTION WIDTH 14.6 % (11.5-14.5)
[2019-02-09 06:52] LABS: WHITE BLOOD COUNT 7.6 10^3/ul (4.8-10.8)
[2019-02-09 07:13] LABS: ALANINE AMINOTRANSFERASE 37 IU/L (13-69); ALBUMIN 3.2 g/dl (3.3-4.9); ALBUMIN/GLOBULIN RATIO 1.06; ALKALINE PHOSPHATASE 102 IU/L (42-121); ANION GAP 9 (5-13); ASPARTATE AMINO TRANSFERASE 21 IU/L (15-46); BILIRUBIN,INDIRECT 0.5 mg/dl (0-1.1); BILIRUBIN,TOTAL 0.5 mg/dl (0.2-1.3); BLOOD UREA NITROGEN 60 mg/dl (7-20); CALCIUM 9.4 mg/dl (8.4-10.2); CARBON DIOXIDE 29 mmol/L (21-31); CHLORIDE 104 mmol/L (97-110); GLUCOSE 126 mg/dl (70-220); POTASSIUM 3.3 mmol/L (3.5-5.1); SODIUM 142 mmol/L (135-144); TOTAL PROTEIN 6.2 g/dl (6.1-8.1)
[2019-02-09 07:24] LABS: HEMOGLOBIN A1C 8.6 % (0-5.9)
[2019-02-09 07:43] LABS: TROPONIN-I 0.291 ng/ml (0.000-0.120)
[2019-02-09] MEDS: FISH OIL 1,000 MG CAP PO ×2 (08:33→20:29)
[2019-02-09] MEDS: FAMOTIDINE 20 MG TAB PO (08:33)
[2019-02-09] MEDS: THIAMINE 100 MG TAB PO (08:33)
[2019-02-09] MEDS: FUROSEMIDE 40 MG TAB PO (08:34)
[2019-02-09] MEDS: ASPIRIN (EC) 81 MG TAB PO (08:34)
[2019-02-09] MEDS: ISOSORBIDE MONONITRATE(SR)30 MG TAB PO (08:36)
[2019-02-09] MEDS: ENOXAPARIN 100 MG/ML SYG SC (08:38)
[2019-02-09] MEDS ORDERED: APIXABAN 5 MG TABLET PO (09:00)
[2019-02-09] MEDS: LEVOFLOXACIN 250 MG TAB PO (15:51)
[2019-02-09] MEDS: ATORVASTATIN 40 MG TAB PO (20:29)
[2019-02-10] MEDS: ACCU-CHEK XX (02:43)
[2019-02-10 06:09] LABS: ADD MAN DIFF? NO
[2019-02-10 06:19] LABS: WHITE BLOOD COUNT 7.7 10^3/ul (4.8-10.8)
[2019-02-10 06:19] LABS: BASOPHIL # 0.1 10^3/ul (0.0-0.1); BASOPHILS % 1.2 % (0.0-2.0); EOSINOPHILS # 0.4 10^3/ul (0.0-0.5); EOSINOPHILS % 4.8 % (0.0-7.0); HEMATOCRIT 29.8 % (42.0-52.0); HEMOGLOBIN 9.5 g/dl (14.0-18.0); LYMPHOCYTES % 12.8 % (15.0-51.0); MEAN CORPUSCULAR HEMOGLOBIN 26.2 pg (29.0-33.0); MEAN CORPUSCULAR HGB CONC 31.9 g/dl (32.0-37.0); MEAN CORPUSCULAR VOLUME 82.3 fl (82.0-101.0); MEAN PLATELET VOLUME 10.4 fl (7.4-10.4); MONOCYTE # 0.8 10^3/ul (0.3-0.9); MONOCYTES % 10.8 % (0.0-11.0); NEUTROPHIL # 5.4 10^3/ul (1.6-7.5); NEUTROPHILS % 69.9 % (39.0-77.0); PLATELET COUNT 294 10^3/UL (140-415); RED BLOOD COUNT 3.62 10^6/ul (4.70-6.10); RED CELL DISTRIBUTION WIDTH 14.8 % (11.5-14.5)
[2019-02-10] MEDS: LEVOFLOXACIN 250 MG TAB PO (06:24)
[2019-02-10 06:49] LABS: ANION GAP 10 (5-13); BLOOD UREA NITROGEN 64 mg/dl (7-20); CALCIUM 8.9 mg/dl (8.4-10.2); CARBON DIOXIDE 26 mmol/L (21-31); CHLORIDE 103 mmol/L (97-110); CREATININE 2.76 mg/dl (0.61-1.24); GLUCOSE 165 mg/dl (70-220); POTASSIUM 3.7 mmol/L (3.5-5.1); SODIUM 139 mmol/L (135-144)
[2019-02-10 06:58] LABS: TROPONIN-I 0.232 ng/ml (0.000-0.120)
[2019-02-10] MEDS: FUROSEMIDE 40 MG TAB PO (07:58)
[2019-02-10] MEDS: FISH OIL 1,000 MG CAP PO ×2 (07:58→20:07)
[2019-02-10] MEDS: ASPIRIN (EC) 81 MG TAB PO (07:59)
[2019-02-10] MEDS: THIAMINE 100 MG TAB PO (07:59)
[2019-02-10] MEDS: BISACODYL (EC) 5 MG TAB PO (08:00)
[2019-02-10] MEDS: FAMOTIDINE 20 MG TAB PO (08:00)
[2019-02-10] MEDS: ISOSORBIDE MONONITRATE(SR)30 MG TAB PO (08:00)
[2019-02-10] MEDS: ENOXAPARIN 100 MG/ML SYG SC (08:02)
[2019-02-10] MEDS: INSULIN ASPART [NOVOLOG] 3 ML PEN SC ×4 (08:03→20:24)
[2019-02-10] MEDS: ATORVASTATIN 40 MG TAB PO (20:07)
[2019-02-10] MEDS: DOCUSATE SODIUM 100 MG CAP PO (20:07)
[2019-02-10] MEDS: INSULIN GLARGINE [LANTus] (100 UNITS/ML) SYG SC (20:24)
[2019-02-11] MEDS: ACCU-CHEK XX (02:11)
[2019-02-11] MEDS: LEVOFLOXACIN 250 MG TAB PO (06:01)
[2019-02-11 06:23] LABS: ADD MAN DIFF? NO
[2019-02-11 06:28] LABS: BASOPHIL # 0.1 10^3/ul (0.0-0.1); BASOPHILS % 0.8 % (0.0-2.0); EOSINOPHILS # 0.4 10^3/ul (0.0-0.5); EOSINOPHILS % 4.7 % (0.0-7.0); HEMATOCRIT 29.4 % (42.0-52.0); HEMOGLOBIN 9.7 g/dl (14.0-18.0); LYMPHOCYTES # 1.2 10^3/ul (0.8-2.9); LYMPHOCYTES % 14.1 % (15.0-51.0); MEAN CORPUSCULAR HEMOGLOBIN 27.2 pg (29.0-33.0); MEAN CORPUSCULAR VOLUME 82.4 fl (82.0-101.0); MEAN PLATELET VOLUME 10.4 fl (7.4-10.4); NEUTROPHIL # 5.6 10^3/ul (1.6-7.5); PLATELET COUNT 301 10^3/UL (140-415); RED BLOOD COUNT 3.57 10^6/ul (4.70-6.10)
[2019-02-11 06:28] LABS: WHITE BLOOD COUNT 8.3 10^3/ul (4.8-10.8)
[2019-02-11 07:07] LABS: MAGNESIUM 2.1 mg/dl (1.7-2.5)
[2019-02-11 07:08] LABS: ANION GAP 9 (5-13); BLOOD UREA NITROGEN 68 mg/dl (7-20); CALCIUM 9.2 mg/dl (8.4-10.2); CARBON DIOXIDE 27 mmol/L (21-31); CHLORIDE 104 mmol/L (97-110); CREATININE 3.16 mg/dl (0.61-1.24); GLUCOSE 143 mg/dl (70-220); POTASSIUM 3.9 mmol/L (3.5-5.1); SODIUM 140 mmol/L (135-144)
[2019-02-11] MEDS: FISH OIL 1,000 MG CAP PO (07:55)
[2019-02-11] MEDS: FUROSEMIDE 40 MG TAB PO (07:55)
[2019-02-11] MEDS: THIAMINE 100 MG TAB PO (07:55)
[2019-02-11] MEDS: FAMOTIDINE 20 MG TAB PO (07:55)
[2019-02-11] MEDS: ISOSORBIDE MONONITRATE(SR)30 MG TAB PO (07:56)
[2019-02-11] MEDS: BISACODYL (EC) 5 MG TAB PO (07:58)
[2019-02-11] MEDS: ASPIRIN (EC) 81 MG TAB PO (07:58)
[2019-02-11] MEDS: INSULIN ASPART [NOVOLOG] 3 ML PEN SC ×3 (07:59→17:28)
[2019-02-11] MEDS: ENOXAPARIN 30 MG/0.3 ML SYG SC (10:24)
== END 2019-02-11 17:30 | disposition home or self-care (01) | DRG 291 ==
LOC: E/R 16:15 → 6WM 21:21
DX: I13.0 Hypertensive heart and chronic kidney disease with heart failure and stage 1 through stage 4 chronic kidney disease, or unspecified chronic kidney disease (principal); I50.23 Acute on chronic systolic (congestive) heart failure; N18.9 Chronic kidney disease, unspecified; E11.22 Type 2 diabetes mellitus with diabetic chronic kidney disease; I25.10 Atherosclerotic heart disease of native coronary artery without angina pectoris; K21.9 Gastro-esophageal reflux disease without esophagitis; M10.9 Gout, unspecified; R62.7 Adult failure to thrive; J40 Bronchitis, not specified as acute or chronic; D64.9 Anemia, unspecified; Z88.0 Allergy status to penicillin; Z95.5 Presence of coronary angioplasty implant and graft
CPT/HCPCS: 36415; 71045; 80048; 80053; 82962; 83036; 83690; 83735; 83880; 84484; 85025; 85610; 85730; 87040-91; 87400; 93005; 94644; 99285-25

== ENCOUNTER 2019-04-02 15:09 | Inpatient (IN) | payer OTHER, MEDICAID ==
[2019-04-02] MEDS: ASPIRIN 81 MG TAB PO (15:32)
[2019-04-02] MEDS: ENALAPRILAT 1.25 MG INJ IV (15:32)
[2019-04-02] MEDS: FUROSEMIDE 40 MG INJ IV ×2 (15:33→18:26)
[2019-04-02 15:44] LABS: ADD MAN DIFF? NO
[2019-04-02 15:48] LABS: ABNORMAL IP MESSAGE 1; BASOPHIL # 0.1 10^3/ul (0.0-0.1); BASOPHILS % 1.1 % (0.0-2.0); EOSINOPHILS # 0.4 10^3/ul (0.0-0.5); HEMATOCRIT 31.4 % (42.0-52.0); HEMOGLOBIN 9.9 g/dl (14.0-18.0); LYMPHOCYTES # 0.5 10^3/ul (0.8-2.9); LYMPHOCYTES % 7.7 % (15.0-51.0); MEAN CORPUSCULAR HEMOGLOBIN 25.9 pg (29.0-33.0); MEAN CORPUSCULAR HGB CONC 31.5 g/dl (32.0-37.0); MEAN CORPUSCULAR VOLUME 82.2 fl (82.0-101.0); MEAN PLATELET VOLUME 10.1 fl (7.4-10.4); MONOCYTE # 0.7 10^3/ul (0.3-0.9); NEUTROPHIL # 5.3 10^3/ul (1.6-7.5); NEUTROPHILS % 76.1 % (39.0-77.0); PLATELET COUNT 253 10^3/UL (140-415); POSITIVE DIFF @See below; RED BLOOD COUNT 3.82 10^6/ul (4.70-6.10)
[2019-04-02 16:06] LABS: ALANINE AMINOTRANSFERASE 65 IU/L (13-69); ALBUMIN 3.6 g/dl (3.3-4.9); ALBUMIN/GLOBULIN RATIO 1.44; ALKALINE PHOSPHATASE 140 IU/L (42-121); ANION GAP 9 (5-13); ASPARTATE AMINO TRANSFERASE 49 IU/L (15-46); BILIRUBIN,INDIRECT 0.8 mg/dl (0-1.1); BILIRUBIN,TOTAL 0.8 mg/dl (0.2-1.3); BLOOD UREA NITROGEN 55 mg/dl (7-20); CALCIUM 9.1 mg/dl (8.4-10.2); CARBON DIOXIDE 26 mmol/L (21-31); CHLORIDE 99 mmol/L (97-110); CREATININE 2.39 mg/dl (0.61-1.24); LIPASE 54 U/L (23-300); POTASSIUM 3.8 mmol/L (3.5-5.1); SODIUM 134 mmol/L (135-144); TOTAL PROTEIN 6.1 g/dl (6.1-8.1)
[2019-04-02 16:08] LABS: INR 1.12; PROTIME 14.5 Sec (11.9-14.9); PT RATIO 1.1
[2019-04-02 16:15] LABS: GLUCOSE 438 mg/dl (70-220)
[2019-04-02 16:18] LABS: B-TYPE NATRIURETIC PEPTIDE 20800 PG/ML (0-125); TROPONIN-I 0.039 ng/ml (0.000-0.120)
[2019-04-02] MEDS: INSULIN LISPRO 100 UNIT/ML VIAL SC (16:45)
[2019-04-02] MEDS: ACCU-CHEK XX (16:50)
[2019-04-02 17:01] LABS: ADD UMIC YES; UR ASCORBIC ACID NEGATIVE (NEGATIVE); UR BILIRUBIN (Dip) NEGATIVE (NEGATIVE); UR BLOOD (Dip) NEGATIVE (NEGATIVE); UR CLARITY CLEAR (CLEAR); UR COLOR STRAW (YELLOW); UR GLUCOSE (Dip) 3+ mg/dL (NEGATIVE); UR KETONES (Dip) NEGATIVE (NEGATIVE); UR LEUKOCYTE ESTERASE (Dip) NEGATIVE Leu/ul (NEGATIVE); UR NITRITE (Dip) NEGATIVE (NEGATIVE); UR RBC 0 /HPF (0-5); UR SPECIFIC GRAVITY (Dip) 1.007 (1.003-1.030); UR TOTAL PROTEIN (Dip) 2+ mg/dl (NEGATIVE); UR UROBILINOGEN (Dip) NEGATIVE (NEGATIVE); UR WBC 0 /HPF (0-5)
[2019-04-02] MEDS: INSULIN ASPART [NOVOLOG] 3 ML PEN SC ×2 (18:00→21:00)
[2019-04-02] MEDS ORDERED: NACL 0.9% 3 ML SYG IV (18:00)
[2019-04-02] MEDS ORDERED: ACETAMINOPHEN 325 MG TAB PO (18:00)
[2019-04-02] MEDS ORDERED: ONDANSETRON 4 MG INJ IV (18:00)
[2019-04-02 18:31] LABS: PROCALCITONIN 0.11 ng/mL (0.00-0.10)
[2019-04-02] MEDS: INSULIN GLARGINE [LANTus] (100 UNITS/ML) SYG SC (20:00)
[2019-04-02] MEDS: APIXABAN 5 MG TABLET PO (21:55)
[2019-04-02] MEDS: ATORVASTATIN 40 MG TAB PO (21:55)
[2019-04-02] MEDS: HEPARIN 5,000 UNIT/1 ML VIAL SC (21:58)
[2019-04-02] MEDS ORDERED: GLUCAGON 1 MG INJ IM (22:00)
[2019-04-02] MEDS ORDERED: GLUCOSE GEL 15 GRAM TUBE BUCCAL (22:00)
[2019-04-02] MEDS ORDERED: GLUCOSE GEL 15 GRAM TUBE PO ×2 (22:00)
[2019-04-02] MEDS ORDERED: DEXTROSE 50% 50 ML SYRINGE IV ×2 (22:00)
[2019-04-03] MEDS: ACCU-CHEK XX (02:00)
[2019-04-03 05:59] LABS: ADD MAN DIFF? NO
[2019-04-03 06:10] LABS: BASOPHIL # 0.1 10^3/ul (0.0-0.1); BASOPHILS % 1.1 % (0.0-2.0); EOSINOPHILS # 0.5 10^3/ul (0.0-0.5); EOSINOPHILS % 6.5 % (0.0-7.0); HEMATOCRIT 29.8 % (42.0-52.0); HEMOGLOBIN 9.3 g/dl (14.0-18.0); LYMPHOCYTES # 0.8 10^3/ul (0.8-2.9); LYMPHOCYTES % 10.5 % (15.0-51.0); MEAN CORPUSCULAR HEMOGLOBIN 25.6 pg (29.0-33.0); MEAN CORPUSCULAR HGB CONC 31.2 g/dl (32.0-37.0); MEAN CORPUSCULAR VOLUME 82.1 fl (82.0-101.0); MEAN PLATELET VOLUME 10.6 fl (7.4-10.4); MONOCYTES % 12.8 % (0.0-11.0); NEUTROPHIL # 5.5 10^3/ul (1.6-7.5); NEUTROPHILS % 68.7 % (39.0-77.0); PLATELET COUNT 299 10^3/UL (140-415); RED BLOOD COUNT 3.63 10^6/ul (4.70-6.10)
[2019-04-03] MEDS: FUROSEMIDE 40 MG INJ IV ×2 (06:18→17:22)
[2019-04-03] MEDS: HEPARIN 5,000 UNIT/1 ML VIAL SC ×2 (06:19→21:34)
[2019-04-03 06:31] LABS: ALANINE AMINOTRANSFERASE 58 IU/L (13-69); ALBUMIN 3.3 g/dl (3.3-4.9); ALBUMIN/GLOBULIN RATIO 1.26; ALKALINE PHOSPHATASE 103 IU/L (42-121); ANION GAP 9 (5-13); ASPARTATE AMINO TRANSFERASE 33 IU/L (15-46); BILIRUBIN,INDIRECT 0.8 mg/dl (0-1.1); BILIRUBIN,TOTAL 0.8 mg/dl (0.2-1.3); BLOOD UREA NITROGEN 59 mg/dl (7-20); CALCIUM 9.1 mg/dl (8.4-10.2); CARBON DIOXIDE 28 mmol/L (21-31); CHLORIDE 103 mmol/L (97-110); CREATININE 2.66 mg/dl (0.61-1.24); GLUCOSE 87 mg/dl (70-220); MAGNESIUM 2.3 mg/dl (1.7-2.5); PHOSPHORUS 4.4 mg/dl (2.5-4.9); POTASSIUM 3.5 mmol/L (3.5-5.1); SODIUM 140 mmol/L (135-144); TOTAL PROTEIN 5.9 g/dl (6.1-8.1)
[2019-04-03] MEDS: INSULIN ASPART [NOVOLOG] 3 ML PEN SC ×4 (08:00→20:20)
[2019-04-03] MEDS: THIAMINE 100 MG TAB PO (08:36)
[2019-04-03] MEDS: ASPIRIN (EC) 81 MG TAB PO (08:37)
[2019-04-03] MEDS: APIXABAN 5 MG TABLET PO ×2 (08:37→20:13)
[2019-04-03] MEDS: ISOSORBIDE MONONITRATE(SR)30 MG TAB PO (08:38)
[2019-04-03 18:16] LABS: SODIUM,URINE RANDOM 82 mmol/L (30-90)
[2019-04-03 18:16] LABS: CREATININE,URINE RANDOM 30.17 mg/dl (20-370)
[2019-04-03] MEDS: ATORVASTATIN 40 MG TAB PO (20:13)
[2019-04-03] MEDS: INSULIN GLARGINE [LANTus] (100 UNITS/ML) SYG SC (20:20)
[2019-04-04] MEDS: ACCU-CHEK XX (02:00)
[2019-04-04 06:11] LABS: ADD MAN DIFF? NO
[2019-04-04] MEDS: FUROSEMIDE 40 MG INJ IV ×2 (06:22→17:26)
[2019-04-04 06:26] LABS: BASOPHIL # 0.1 10^3/ul (0.0-0.1); BASOPHILS % 0.9 % (0.0-2.0); EOSINOPHILS # 0.2 10^3/ul (0.0-0.5); EOSINOPHILS % 2.4 % (0.0-7.0); HEMOGLOBIN 9.6 g/dl (14.0-18.0); LYMPHOCYTES # 0.6 10^3/ul (0.8-2.9); LYMPHOCYTES % 7.3 % (15.0-51.0); MEAN CORPUSCULAR HEMOGLOBIN 25.5 pg (29.0-33.0); MEAN CORPUSCULAR VOLUME 82.4 fl (82.0-101.0); MEAN PLATELET VOLUME 10.7 fl (7.4-10.4); MONOCYTE # 0.7 10^3/ul (0.3-0.9); MONOCYTES % 8.6 % (0.0-11.0); NEUTROPHIL # 6.8 10^3/ul (1.6-7.5); NEUTROPHILS % 80.4 % (39.0-77.0); PLATELET COUNT 268 10^3/UL (140-415); RED BLOOD COUNT 3.76 10^6/ul (4.70-6.10); RED CELL DISTRIBUTION WIDTH 15.3 % (11.5-14.5)
[2019-04-04 06:26] LABS: WHITE BLOOD COUNT 8.5 10^3/ul (4.8-10.8)
[2019-04-04 06:55] LABS: ANION GAP 12 (5-13); BLOOD UREA NITROGEN 63 mg/dl (7-20); CALCIUM 8.5 mg/dl (8.4-10.2); CARBON DIOXIDE 27 mmol/L (21-31); CHLORIDE 98 mmol/L (97-110); CREATININE 2.58 mg/dl (0.61-1.24); GLUCOSE 268 mg/dl (70-220); POTASSIUM 3.4 mmol/L (3.5-5.1); SODIUM 137 mmol/L (135-144)
[2019-04-04 06:57] LABS: MAGNESIUM 2.2 mg/dl (1.7-2.5)
[2019-04-04 06:57] LABS: PHOSPHORUS 4.5 mg/dl (2.5-4.9)
[2019-04-04] MEDS: ASPIRIN (EC) 81 MG TAB PO (08:26)
[2019-04-04] MEDS: THIAMINE 100 MG TAB PO (08:27)
[2019-04-04] MEDS: ISOSORBIDE MONONITRATE(SR)30 MG TAB PO (08:27)
[2019-04-04] MEDS: APIXABAN 5 MG TABLET PO ×2 (08:27→20:30)
[2019-04-04] MEDS: INSULIN ASPART [NOVOLOG] 3 ML PEN SC ×4 (08:49→21:01)
[2019-04-04] MEDS: HEPARIN 5,000 UNIT/1 ML VIAL SC ×2 (09:07→21:01)
[2019-04-04] MEDS: POTASSIUM CHLORIDE (SR) 20 MEQ TAB PO (12:44)
[2019-04-04 16:31] LABS: CREATININE, RANDOM URINE 34 mg/dL (20-320); MICROALBUMIN 55.9 mg/dL; MICROALBUMIN/CREATININE RATIO 1644 (<30)
[2019-04-04] MEDS: ATORVASTATIN 40 MG TAB PO (20:30)
[2019-04-04] MEDS: INSULIN GLARGINE [LANTus] (100 UNITS/ML) SYG SC (21:01)
[2019-04-05] MEDS: ACCU-CHEK XX (02:00)
[2019-04-05] MEDS: FUROSEMIDE 40 MG INJ IV ×2 (05:29→17:49)
[2019-04-05 05:52] LABS: ADD MAN DIFF? NO
[2019-04-05 06:04] LABS: BASOPHIL # 0.1 10^3/ul (0.0-0.1); BASOPHILS % 1.1 % (0.0-2.0); EOSINOPHILS # 0.5 10^3/ul (0.0-0.5); EOSINOPHILS % 5.8 % (0.0-7.0); HEMATOCRIT 32.5 % (42.0-52.0); LYMPHOCYTES # 1.1 10^3/ul (0.8-2.9); MEAN CORPUSCULAR HEMOGLOBIN 25.3 pg (29.0-33.0); MEAN CORPUSCULAR HGB CONC 30.8 g/dl (32.0-37.0); MEAN CORPUSCULAR VOLUME 82.3 fl (82.0-101.0); MEAN PLATELET VOLUME 10.8 fl (7.4-10.4); MONOCYTE # 1.2 10^3/ul (0.3-0.9); MONOCYTES % 12.6 % (0.0-11.0); NEUTROPHIL # 6.3 10^3/ul (1.6-7.5); NEUTROPHILS % 68.2 % (39.0-77.0); PLATELET COUNT 317 10^3/UL (140-415); RED BLOOD COUNT 3.95 10^6/ul (4.70-6.10); RED CELL DISTRIBUTION WIDTH 15.4 % (11.5-14.5)
[2019-04-05 06:04] LABS: WHITE BLOOD COUNT 9.2 10^3/ul (4.8-10.8)
[2019-04-05 06:17] LABS: PHOSPHORUS 4.1 mg/dl (2.5-4.9)
[2019-04-05 06:17] LABS: MAGNESIUM 2.2 mg/dl (1.7-2.5)
[2019-04-05 06:22] LABS: ANION GAP 13 (5-13); BLOOD UREA NITROGEN 64 mg/dl (7-20); CALCIUM 8.8 mg/dl (8.4-10.2); CARBON DIOXIDE 30 mmol/L (21-31); CHLORIDE 100 mmol/L (97-110); CREATININE 2.78 mg/dl (0.61-1.24); GLUCOSE 82 mg/dl (70-220); POTASSIUM 3.5 mmol/L (3.5-5.1); SODIUM 143 mmol/L (135-144)
[2019-04-05] MEDS: INSULIN ASPART [NOVOLOG] 3 ML PEN SC ×4 (08:00→21:02)
[2019-04-05] MEDS: ISOSORBIDE MONONITRATE(SR)30 MG TAB PO (08:37)
[2019-04-05] MEDS: THIAMINE 100 MG TAB PO (08:38)
[2019-04-05] MEDS: ASPIRIN (EC) 81 MG TAB PO (08:38)
[2019-04-05] MEDS: APIXABAN 5 MG TABLET PO ×2 (08:39→20:53)
[2019-04-05] MEDS: HEPARIN 5,000 UNIT/1 ML VIAL SC ×2 (08:43→21:00)
[2019-04-05] MEDS: ATORVASTATIN 40 MG TAB PO (20:53)
[2019-04-05] MEDS: INSULIN GLARGINE [LANTus] (100 UNITS/ML) SYG SC (21:01)
[2019-04-06] MEDS: ACCU-CHEK XX (02:16)
[2019-04-06] MEDS: FUROSEMIDE 40 MG INJ IV (05:11)
[2019-04-06 06:53] LABS: ANION GAP 10 (5-13); BLOOD UREA NITROGEN 70 mg/dl (7-20); CALCIUM 8.7 mg/dl (8.4-10.2); CARBON DIOXIDE 29 mmol/L (21-31); CHLORIDE 102 mmol/L (97-110); GLUCOSE 76 mg/dl (70-220); MAGNESIUM 2.2 mg/dl (1.7-2.5); PHOSPHORUS 4.5 mg/dl (2.5-4.9); POTASSIUM 3.9 mmol/L (3.5-5.1); SODIUM 141 mmol/L (135-144)
[2019-04-06] MEDS: INSULIN ASPART [NOVOLOG] 3 ML PEN SC ×2 (08:00→12:02)
[2019-04-06] MEDS: HEPARIN 5,000 UNIT/1 ML VIAL SC (09:08)
[2019-04-06] MEDS: ASPIRIN (EC) 81 MG TAB PO (09:11)
[2019-04-06] MEDS: THIAMINE 100 MG TAB PO (09:11)
[2019-04-06] MEDS: APIXABAN 5 MG TABLET PO (09:12)
[2019-04-06] MEDS: ISOSORBIDE MONONITRATE(SR)30 MG TAB PO (09:12)
[2019-04-06] MEDS ORDERED: BUMETANIDE 1 MG TAB PO (18:00)
== END 2019-04-06 14:41 | disposition home or self-care (01) | DRG 291 ==
LOC: E/R 15:09 → 6WM 16:26
DX: I13.0 Hypertensive heart and chronic kidney disease with heart failure and stage 1 through stage 4 chronic kidney disease, or unspecified chronic kidney disease (principal); I50.23 Acute on chronic systolic (congestive) heart failure; J96.01 Acute respiratory failure with hypoxia; N18.4 Chronic kidney disease, stage 4 (severe); N17.9 Acute kidney failure, unspecified; I47.1 Supraventricular tachycardia; E11.22 Type 2 diabetes mellitus with diabetic chronic kidney disease; I25.10 Atherosclerotic heart disease of native coronary artery without angina pectoris; E78.5 Hyperlipidemia, unspecified; I42.9 Cardiomyopathy, unspecified; E87.6 Hypokalemia; M10.9 Gout, unspecified; Z79.4 Long term (current) use of insulin; Z79.82 Long term (current) use of aspirin; Z87.891 Personal history of nicotine dependence; Z88.0 Allergy status to penicillin
CPT/HCPCS: 36415; 71045; 80048; 80053; 81001; 81003; 82043; 82962; 83036; 83690; 83735; 83880; 84100; 84145; 84155; 84300; 84443; 84484; 85025; 85610; 85730; 93005; 93306; 94660; 96374; 96375; 99285-25

== ENCOUNTER 2019-05-05 16:14 | Inpatient (IN) | payer OTHER, MEDICAID ==
[2019-05-05] MEDS: ATORVASTATIN 40 MG TAB PO (04:39)
[2019-05-05] MEDS: ALBUTEROL 0.5% (NEB) 2.5 MG/0.5 ML AMP INH (16:42)
[2019-05-05] MEDS: IPRATROPIUM (NEB) 0.5 MG/2.5 ML AMP INH (16:42)
[2019-05-05 16:56] LABS: ADD MAN DIFF? NO
[2019-05-05 16:59] LABS: WHITE BLOOD COUNT 6.4 10^3/ul (4.8-10.8)
[2019-05-05 16:59] LABS: ABNORMAL IP MESSAGE 1; BASOPHIL # 0.1 10^3/ul (0.0-0.1); BASOPHILS % 1.2 % (0.0-2.0); EOSINOPHILS # 0.2 10^3/ul (0.0-0.5); EOSINOPHILS % 3.7 % (0.0-7.0); HEMATOCRIT 29.7 % (42.0-52.0); HEMOGLOBIN 9.3 g/dl (14.0-18.0); LYMPHOCYTES # 0.6 10^3/ul (0.8-2.9); LYMPHOCYTES % 8.6 % (15.0-51.0); MEAN CORPUSCULAR HEMOGLOBIN 25.3 pg (29.0-33.0); MEAN CORPUSCULAR HGB CONC 31.3 g/dl (32.0-37.0); MEAN CORPUSCULAR VOLUME 80.7 fl (82.0-101.0); MEAN PLATELET VOLUME 10.5 fl (7.4-10.4); MONOCYTE # 0.8 10^3/ul (0.3-0.9); MONOCYTES % 12.5 % (0.0-11.0); NEUTROPHIL # 4.7 10^3/ul (1.6-7.5); NEUTROPHILS % 73.8 % (39.0-77.0); PLATELET COUNT 270 10^3/UL (140-415); POSITIVE DIFF @See below; RED BLOOD COUNT 3.68 10^6/ul (4.70-6.10); RED CELL DISTRIBUTION WIDTH 16.1 % (11.5-14.5)
[2019-05-05] MEDS: ASPIRIN 325 MG TAB PO (16:59)
[2019-05-05] MEDS: LEVOFLOXACIN 750MG/D5W (PMX) 150 ML IVPB (16:59)
[2019-05-05] MEDS ORDERED: NITROGLYCERIN (SL) 0.4 MG TAB SL ×2 (17:00→19:30)
[2019-05-05] MEDS: SOD CHLORIDE 0.9% 250 ML IV (17:00)
[2019-05-05 17:17] LABS: ALANINE AMINOTRANSFERASE 26 IU/L (13-69); ALBUMIN 3.8 g/dl (3.3-4.9); ALKALINE PHOSPHATASE 104 IU/L (42-121); ANION GAP 14 (5-13); ASPARTATE AMINO TRANSFERASE 20 IU/L (15-46); BILIRUBIN,INDIRECT 0.6 mg/dl (0-1.1); BILIRUBIN,TOTAL 0.6 mg/dl (0.2-1.3); BLOOD UREA NITROGEN 57 mg/dl (7-20); CALCIUM 9.1 mg/dl (8.4-10.2); CARBON DIOXIDE 26 mmol/L (21-31); CHLORIDE 96 mmol/L (97-110); CREATINE KINASE 59 IU/L (23-200); CREATININE 2.51 mg/dl (0.61-1.24); GLUCOSE 325 mg/dl (70-220); POTASSIUM 4.3 mmol/L (3.5-5.1); SODIUM 136 mmol/L (135-144); TOTAL PROTEIN 6.5 g/dl (6.1-8.1)
[2019-05-05 17:18] LABS: INR 0.95; PARTIAL THROMBOPLASTIN TIME 31.2 Sec (23.0-35.0); PROTIME 12.8 Sec (11.9-14.9)
[2019-05-05 17:27] LABS: B-TYPE NATRIURETIC PEPTIDE 21100 PG/ML (0-125); CK INDEX 2.1; CK-MB 1.21 ng/ml (0.0-2.4); TROPONIN-I 0.035 ng/ml (0.000-0.120)
[2019-05-05] MEDS: VANCOMYCIN 1 GM (PMX) 250 ML IVPB (18:27)
[2019-05-05] MEDS: DIPHENHYDRAMINE 50 MG INJ IV (18:41)
[2019-05-05 19:29] LABS: LACTIC ACID 1.6 mmol/L (0.5-2.0)
[2019-05-05] MEDS ORDERED: ACETAMINOPHEN 325 MG TAB PO ×2 (19:30)
[2019-05-05] MEDS ORDERED: morphine 2 MG INJ IV (19:30)
[2019-05-05] MEDS ORDERED: hydrALAzine 20 MG INJ IV (19:30)
[2019-05-05] MEDS ORDERED: ALBUTEROL/IPRATROPIUM (NEB) 3 ML AMP HHN (19:30)
[2019-05-05] MEDS ORDERED: NACL 0.9% 3 ML SYG IV (19:30)
[2019-05-05] MEDS ORDERED: ONDANSETRON 4 MG INJ IV (19:30)
[2019-05-05] MEDS ORDERED: DOCUSATE SODIUM 100 MG CAP PO (19:30)
[2019-05-05] MEDS ORDERED: MAGNESIUM HYDROXIDE 30ML CUP PO (19:30)
[2019-05-05 20:14] LABS: FREE T4 (FREE THYROXINE) 1.63 ng/dl (0.78-2.44)
[2019-05-05] MEDS ORDERED: NON-FORMULARY/PATIENT OWN MED (Omega-3 Acid Ethyl Esters (Lovaza) 2 GM) PO (21:00)
[2019-05-05] MEDS ORDERED: [UNRECOGNIZED DRUG - OTHER] SQ (21:00)
[2019-05-05] MEDS ORDERED: NON-FORMULARY/PATIENT OWN MED (Liraglutide (Victoza 3-Pak) 1.8 MG) SQ (21:00)
[2019-05-05] MEDS ORDERED: INSULIN GLARGINE HUM REC ANLOG 42 UNIT SQ (21:00)
[2019-05-05 21:49] LABS: LACTIC ACID 1.1 mmol/L (0.5-2.0)
[2019-05-05] MEDS: BUMETANIDE 1 MG TAB PO (21:57)
[2019-05-05] MEDS: FISH OIL 1,000 MG CAP PO (21:58)
[2019-05-05] MEDS: APIXABAN 5 MG TABLET PO (21:58)
[2019-05-06] MEDS: BUMETANIDE 1 MG TAB PO ×2 (05:51→18:10)
[2019-05-06 06:03] LABS: ADD MAN DIFF? NO
[2019-05-06 06:09] LABS: WHITE BLOOD COUNT 8.2 10^3/ul (4.8-10.8)
[2019-05-06 06:09] LABS: BASOPHIL # 0.1 10^3/ul (0.0-0.1); BASOPHILS % 0.9 % (0.0-2.0); EOSINOPHILS # 0.4 10^3/ul (0.0-0.5); EOSINOPHILS % 4.5 % (0.0-7.0); HEMATOCRIT 27.1 % (42.0-52.0); HEMOGLOBIN 8.5 g/dl (14.0-18.0); LYMPHOCYTES # 0.8 10^3/ul (0.8-2.9); LYMPHOCYTES % 9.4 % (15.0-51.0); MEAN CORPUSCULAR HEMOGLOBIN 25.3 pg (29.0-33.0); MEAN CORPUSCULAR HGB CONC 31.4 g/dl (32.0-37.0); MEAN CORPUSCULAR VOLUME 80.7 fl (82.0-101.0); MONOCYTE # 1.1 10^3/ul (0.3-0.9); NEUTROPHIL # 5.9 10^3/ul (1.6-7.5); PLATELET COUNT 238 10^3/UL (140-415); RED BLOOD COUNT 3.36 10^6/ul (4.70-6.10); RED CELL DISTRIBUTION WIDTH 15.8 % (11.5-14.5)
[2019-05-06 06:45] LABS: HEMOGLOBIN A1C 9.7 % (0-5.9)
[2019-05-06 07:01] LABS: ANION GAP 8 (5-13); BLOOD UREA NITROGEN 54 mg/dl (7-20); CALCIUM 8.8 mg/dl (8.4-10.2); CARBON DIOXIDE 28 mmol/L (21-31); CHLORIDE 103 mmol/L (97-110); CREATININE 2.51 mg/dl (0.61-1.24); GLUCOSE 117 mg/dl (70-220); MAGNESIUM 2.1 mg/dl (1.7-2.5); PHOSPHORUS 4.4 mg/dl (2.5-4.9); POTASSIUM 3.9 mmol/L (3.5-5.1); SODIUM 139 mmol/L (135-144)
[2019-05-06 07:27] LABS: CHOL/HDL RATIO 2.7 RATIO; HDL CHOLESTEROL 33 mg/dl (31-75); LDL CHOLESTEROL,CALCULATED 43 mg/dl; TRIGLYCERIDES 71 mg/dl (0-149)
[2019-05-06 07:27] LABS: CHOLESTEROL 90 mg/dl (100-200)
[2019-05-06 08:42] LABS: IRON 29 ug/dl (35-150)
[2019-05-06] MEDS: ASPIRIN (EC) 81 MG TAB PO (08:49)
[2019-05-06] MEDS: FISH OIL 1,000 MG CAP PO ×2 (08:49→20:38)
[2019-05-06] MEDS: APIXABAN 5 MG TABLET PO ×2 (08:49→20:38)
[2019-05-06] MEDS: ISOSORBIDE MONONITRATE(SR)30 MG TAB PO (08:50)
[2019-05-06] MEDS: THIAMINE 100 MG TAB PO (08:50)
[2019-05-06 08:52] LABS: % IRON SATURATION 9 % SAT (22-52); TOTAL IRON BINDING CAPACITY 333 ug/dl (241-421)
[2019-05-06 09:19] LABS: FERRITIN 35.3 ng/ml (11.1-264.0)
[2019-05-06 12:26] LABS: HEMATOCRIT 28.9 % (42.0-52.0); HEMOGLOBIN 8.9 g/dl (14.0-18.0)
[2019-05-06 12:28] LABS: ADD UMIC YES; UR ASCORBIC ACID NEGATIVE (NEGATIVE); UR BILIRUBIN (Dip) NEGATIVE (NEGATIVE); UR BLOOD (Dip) NEGATIVE (NEGATIVE); UR CLARITY CLEAR (CLEAR); UR COLOR STRAW (YELLOW); UR GLUCOSE (Dip) NEGATIVE (NEGATIVE); UR KETONES (Dip) NEGATIVE (NEGATIVE); UR LEUKOCYTE ESTERASE (Dip) NEGATIVE Leu/ul (NEGATIVE); UR NITRITE (Dip) NEGATIVE (NEGATIVE); UR RBC 1 /HPF (0-5); UR SPECIFIC GRAVITY (Dip) 1.006 (1.003-1.030); UR TOTAL PROTEIN (Dip) 2+ mg/dl (NEGATIVE); UR UROBILINOGEN (Dip) NEGATIVE (NEGATIVE); UR WBC 0 /HPF (0-5)
[2019-05-06] MEDS: BUMETANIDE 1 MG INJ IV (17:17)
[2019-05-06] MEDS: ATORVASTATIN 40 MG TAB PO (20:38)
[2019-05-07] MEDS: BUMETANIDE 1 MG TAB PO ×2 (05:39→17:37)
[2019-05-07 06:23] LABS: ADD MAN DIFF? NO
[2019-05-07 06:35] LABS: BASOPHIL # 0.1 10^3/ul (0.0-0.1); BASOPHILS % 1.1 % (0.0-2.0); EOSINOPHILS # 0.4 10^3/ul (0.0-0.5); EOSINOPHILS % 4.8 % (0.0-7.0); HEMATOCRIT 28.6 % (42.0-52.0); HEMOGLOBIN 8.9 g/dl (14.0-18.0); LYMPHOCYTES # 0.7 10^3/ul (0.8-2.9); LYMPHOCYTES % 9.1 % (15.0-51.0); MEAN CORPUSCULAR HEMOGLOBIN 24.9 pg (29.0-33.0); MEAN CORPUSCULAR HGB CONC 31.1 g/dl (32.0-37.0); MEAN CORPUSCULAR VOLUME 80.1 fl (82.0-101.0); MEAN PLATELET VOLUME 10.1 fl (7.4-10.4); MONOCYTES % 13.5 % (0.0-11.0); NEUTROPHIL # 5.2 10^3/ul (1.6-7.5); NEUTROPHILS % 71.1 % (39.0-77.0); PLATELET COUNT 256 10^3/UL (140-415); RED BLOOD COUNT 3.57 10^6/ul (4.70-6.10); RED CELL DISTRIBUTION WIDTH 15.9 % (11.5-14.5)
[2019-05-07 06:35] LABS: WHITE BLOOD COUNT 7.3 10^3/ul (4.8-10.8)
[2019-05-07 06:55] LABS: ANION GAP 9 (5-13); BLOOD UREA NITROGEN 61 mg/dl (7-20); CALCIUM 9.1 mg/dl (8.4-10.2); CARBON DIOXIDE 28 mmol/L (21-31); CHLORIDE 101 mmol/L (97-110); CREATININE 2.65 mg/dl (0.61-1.24); GLUCOSE 180 mg/dl (70-220); POTASSIUM 3.7 mmol/L (3.5-5.1); SODIUM 138 mmol/L (135-144)
[2019-05-07] MEDS: ISOSORBIDE MONONITRATE(SR)30 MG TAB PO (08:29)
[2019-05-07] MEDS: FISH OIL 1,000 MG CAP PO ×2 (08:29→21:05)
[2019-05-07] MEDS: APIXABAN 5 MG TABLET PO ×2 (08:30→21:05)
[2019-05-07] MEDS: THIAMINE 100 MG TAB PO (08:30)
[2019-05-07] MEDS: ASPIRIN (EC) 81 MG TAB PO (08:30)
[2019-05-07] MEDS ORDERED: GLUCAGON 1 MG INJ IM (09:30)
[2019-05-07] MEDS ORDERED: GLUCOSE GEL 15 GRAM TUBE PO ×2 (09:30)
[2019-05-07] MEDS ORDERED: GLUCOSE GEL 15 GRAM TUBE BUCCAL (09:30)
[2019-05-07] MEDS ORDERED: DEXTROSE 50% 50 ML SYRINGE IV ×2 (09:30)
[2019-05-07] MEDS: INSULIN ASPART [NOVOLOG] 3 ML PEN SC ×5 (12:24→22:08)
[2019-05-07 17:53] LABS: OCCULT BLOOD STOOL NEGATIVE (NEGATIVE)
[2019-05-07] MEDS: ATORVASTATIN 40 MG TAB PO (21:05)
[2019-05-08] MEDS: ACCU-CHEK XX (02:57)
[2019-05-08] MEDS: BUMETANIDE 1 MG TAB PO ×2 (05:48→17:25)
[2019-05-08 06:11] LABS: ADD MAN DIFF? NO
[2019-05-08 06:23] LABS: WHITE BLOOD COUNT 7.5 10^3/ul (4.8-10.8)
[2019-05-08 06:23] LABS: BASOPHIL # 0.1 10^3/ul (0.0-0.1); BASOPHILS % 0.8 % (0.0-2.0); EOSINOPHILS # 0.3 10^3/ul (0.0-0.5); EOSINOPHILS % 4.4 % (0.0-7.0); HEMATOCRIT 28.1 % (42.0-52.0); HEMOGLOBIN 8.8 g/dl (14.0-18.0); LYMPHOCYTES % 12.9 % (15.0-51.0); MEAN CORPUSCULAR HGB CONC 31.3 g/dl (32.0-37.0); MEAN CORPUSCULAR VOLUME 79.8 fl (82.0-101.0); MEAN PLATELET VOLUME 10.1 fl (7.4-10.4); MONOCYTES % 13.8 % (0.0-11.0); NEUTROPHIL # 5.1 10^3/ul (1.6-7.5); PLATELET COUNT 255 10^3/UL (140-415); RED BLOOD COUNT 3.52 10^6/ul (4.70-6.10); RED CELL DISTRIBUTION WIDTH 15.9 % (11.5-14.5)
[2019-05-08 06:44] LABS: ANION GAP 10 (5-13); BLOOD UREA NITROGEN 71 mg/dl (7-20); CALCIUM 9.2 mg/dl (8.4-10.2); CARBON DIOXIDE 26 mmol/L (21-31); CHLORIDE 102 mmol/L (97-110); CREATININE 2.85 mg/dl (0.61-1.24); GLUCOSE 178 mg/dl (70-220); POTASSIUM 3.7 mmol/L (3.5-5.1); SODIUM 138 mmol/L (135-144)
[2019-05-08] MEDS: APIXABAN 5 MG TABLET PO ×2 (08:24→20:30)
[2019-05-08] MEDS: FISH OIL 1,000 MG CAP PO ×2 (08:24→20:29)
[2019-05-08] MEDS: THIAMINE 100 MG TAB PO (08:24)
[2019-05-08] MEDS: ASPIRIN (EC) 81 MG TAB PO (08:25)
[2019-05-08] MEDS: ISOSORBIDE MONONITRATE(SR)30 MG TAB PO (08:25)
[2019-05-08] MEDS: INSULIN ASPART [NOVOLOG] 3 ML PEN SC ×7 (08:36→20:43)
[2019-05-08] MEDS: INSULIN GLARGINE [LANTus] (100 UNITS/ML) SYG SC (08:36)
[2019-05-08] MEDS: ATORVASTATIN 40 MG TAB PO (20:30)
[2019-05-09] MEDS: ACCU-CHEK XX (02:00)
[2019-05-09] MEDS: BUMETANIDE 1 MG TAB PO ×2 (05:25→18:15)
[2019-05-09 06:44] LABS: ADD MAN DIFF? NO
[2019-05-09 06:51] LABS: WHITE BLOOD COUNT 8.8 10^3/ul (4.8-10.8)
[2019-05-09 06:51] LABS: BASOPHIL # 0.1 10^3/ul (0.0-0.1); BASOPHILS % 0.8 % (0.0-2.0); EOSINOPHILS # 0.4 10^3/ul (0.0-0.5); EOSINOPHILS % 4.5 % (0.0-7.0); HEMOGLOBIN 8.7 g/dl (14.0-18.0); LYMPHOCYTES # 0.8 10^3/ul (0.8-2.9); LYMPHOCYTES % 8.6 % (15.0-51.0); MEAN CORPUSCULAR HEMOGLOBIN 24.9 pg (29.0-33.0); MEAN CORPUSCULAR HGB CONC 31.1 g/dl (32.0-37.0); MEAN CORPUSCULAR VOLUME 80.2 fl (82.0-101.0); MEAN PLATELET VOLUME 10.2 fl (7.4-10.4); MONOCYTE # 1.1 10^3/ul (0.3-0.9); MONOCYTES % 12.3 % (0.0-11.0); NEUTROPHIL # 6.5 10^3/ul (1.6-7.5); NEUTROPHILS % 73.5 % (39.0-77.0); PLATELET COUNT 235 10^3/UL (140-415); RED BLOOD COUNT 3.49 10^6/ul (4.70-6.10); RED CELL DISTRIBUTION WIDTH 15.9 % (11.5-14.5)
[2019-05-09 07:25] LABS: PHOSPHORUS 4.8 mg/dl (2.5-4.9)
[2019-05-09 07:27] LABS: ANION GAP 9 (5-13); BLOOD UREA NITROGEN 74 mg/dl (7-20); CARBON DIOXIDE 28 mmol/L (21-31); CHLORIDE 102 mmol/L (97-110); CREATININE 2.91 mg/dl (0.61-1.24); GLUCOSE 169 mg/dl (70-220); POTASSIUM 3.6 mmol/L (3.5-5.1); SODIUM 139 mmol/L (135-144)
[2019-05-09] MEDS: INSULIN ASPART [NOVOLOG] 3 ML PEN SC ×7 (08:08→20:59)
[2019-05-09] MEDS: THIAMINE 100 MG TAB PO (08:15)
[2019-05-09] MEDS: ASPIRIN (EC) 81 MG TAB PO (08:16)
[2019-05-09] MEDS: APIXABAN 5 MG TABLET PO ×2 (08:16→20:49)
[2019-05-09] MEDS: FISH OIL 1,000 MG CAP PO ×2 (08:16→20:49)
[2019-05-09] MEDS: ISOSORBIDE MONONITRATE(SR)30 MG TAB PO (08:18)
[2019-05-09] MEDS: INSULIN GLARGINE [LANTus] (100 UNITS/ML) SYG SC (08:19)
[2019-05-09] MEDS: ATORVASTATIN 40 MG TAB PO (20:49)
[2019-05-10] MEDS: ACCU-CHEK XX (01:50)
[2019-05-10] MEDS: BUMETANIDE 1 MG TAB PO ×2 (05:41→18:42)
[2019-05-10 07:00] LABS: ADD MAN DIFF? NO
[2019-05-10 07:05] LABS: WHITE BLOOD COUNT 8.6 10^3/ul (4.8-10.8)
[2019-05-10 07:05] LABS: BASOPHIL # 0.1 10^3/ul (0.0-0.1); BASOPHILS % 0.6 % (0.0-2.0); EOSINOPHILS # 0.3 10^3/ul (0.0-0.5); EOSINOPHILS % 3.1 % (0.0-7.0); HEMOGLOBIN 8.6 g/dl (14.0-18.0); LYMPHOCYTES # 0.7 10^3/ul (0.8-2.9); LYMPHOCYTES % 8.5 % (15.0-51.0); MEAN CORPUSCULAR HEMOGLOBIN 24.6 pg (29.0-33.0); MEAN CORPUSCULAR HGB CONC 30.7 g/dl (32.0-37.0); MEAN CORPUSCULAR VOLUME 80.2 fl (82.0-101.0); MEAN PLATELET VOLUME 10.2 fl (7.4-10.4); MONOCYTE # 1.3 10^3/ul (0.3-0.9); MONOCYTES % 14.8 % (0.0-11.0); NEUTROPHIL # 6.3 10^3/ul (1.6-7.5); NEUTROPHILS % 72.7 % (39.0-77.0); PLATELET COUNT 234 10^3/UL (140-415); RED BLOOD COUNT 3.49 10^6/ul (4.70-6.10); RED CELL DISTRIBUTION WIDTH 16.2 % (11.5-14.5)
[2019-05-10 07:27] LABS: PHOSPHORUS 4.9 mg/dl (2.5-4.9)
[2019-05-10 07:27] LABS: MAGNESIUM 1.9 mg/dl (1.7-2.5)
[2019-05-10 07:35] LABS: ANION GAP 10 (5-13); BLOOD UREA NITROGEN 80 mg/dl (7-20); CALCIUM 8.8 mg/dl (8.4-10.2); CARBON DIOXIDE 26 mmol/L (21-31); CHLORIDE 101 mmol/L (97-110); CREATININE 2.99 mg/dl (0.61-1.24); GLUCOSE 191 mg/dl (70-220); POTASSIUM 3.5 mmol/L (3.5-5.1); SODIUM 137 mmol/L (135-144)
[2019-05-10] MEDS: THIAMINE 100 MG TAB PO (08:05)
[2019-05-10] MEDS: FISH OIL 1,000 MG CAP PO ×2 (08:05→21:05)
[2019-05-10] MEDS: APIXABAN 5 MG TABLET PO ×2 (08:06→21:05)
[2019-05-10] MEDS: ASPIRIN (EC) 81 MG TAB PO (08:06)
[2019-05-10] MEDS: ISOSORBIDE MONONITRATE(SR)30 MG TAB PO (08:07)
[2019-05-10] MEDS: INSULIN ASPART [NOVOLOG] 3 ML PEN SC ×7 (08:21→21:00)
[2019-05-10] MEDS: INSULIN GLARGINE [LANTus] (100 UNITS/ML) SYG SC (08:21)
[2019-05-10] MEDS: SOD FERRIC GLUC COMPLX 125 MG in SOD CHLORIDE 0.9% 100 ML IVPB (12:39)
[2019-05-10] MEDS: MAGNESIUM SULFATE 2 GM/50 ML 50 ML IVPB (17:44)
[2019-05-10] MEDS: POTASSIUM CHLORIDE (SR) 20 MEQ TAB PO (17:44)
[2019-05-10] MEDS: HYDROCODONE/APAP (5/325) TAB PO (17:44)
[2019-05-10] MEDS: ATORVASTATIN 40 MG TAB PO (21:06)
[2019-05-11] MEDS: ACCU-CHEK XX (02:00)
[2019-05-11] MEDS: BUMETANIDE 1 MG TAB PO ×2 (05:44→16:57)
[2019-05-11 06:57] LABS: ADD MAN DIFF? NO
[2019-05-11 07:02] LABS: WHITE BLOOD COUNT 8.8 10^3/ul (4.8-10.8)
[2019-05-11 07:02] LABS: ABNORMAL IP MESSAGE 1; BASOPHIL # 0.1 10^3/ul (0.0-0.1); BASOPHILS % 0.8 % (0.0-2.0); EOSINOPHILS # 0.2 10^3/ul (0.0-0.5); EOSINOPHILS % 2.4 % (0.0-7.0); HEMOGLOBIN 8.3 g/dl (14.0-18.0); LYMPHOCYTES # 0.7 10^3/ul (0.8-2.9); LYMPHOCYTES % 7.6 % (15.0-51.0); MEAN CORPUSCULAR HEMOGLOBIN 24.5 pg (29.0-33.0); MEAN CORPUSCULAR HGB CONC 30.7 g/dl (32.0-37.0); MEAN CORPUSCULAR VOLUME 79.6 fl (82.0-101.0); MEAN PLATELET VOLUME 10.6 fl (7.4-10.4); MONOCYTE # 1.6 10^3/ul (0.3-0.9); MONOCYTES % 17.8 % (0.0-11.0); NEUTROPHIL # 6.2 10^3/ul (1.6-7.5); NEUTROPHILS % 70.9 % (39.0-77.0); PLATELET COUNT 249 10^3/UL (140-415); POSITIVE DIFF @See below; RED BLOOD COUNT 3.39 10^6/ul (4.70-6.10)
[2019-05-11 07:21] LABS: MAGNESIUM 2.3 mg/dl (1.7-2.5)
[2019-05-11 07:21] LABS: PHOSPHORUS 4.9 mg/dl (2.5-4.9)
[2019-05-11 07:24] LABS: ANION GAP 10 (5-13); BLOOD UREA NITROGEN 80 mg/dl (7-20); CALCIUM 8.9 mg/dl (8.4-10.2); CARBON DIOXIDE 27 mmol/L (21-31); CHLORIDE 101 mmol/L (97-110); CREATININE 2.73 mg/dl (0.61-1.24); GLUCOSE 103 mg/dl (70-220); POTASSIUM 3.8 mmol/L (3.5-5.1); SODIUM 138 mmol/L (135-144)
[2019-05-11] MEDS: INSULIN ASPART [NOVOLOG] 3 ML PEN SC ×8 (07:47→21:45)
[2019-05-11] MEDS: INSULIN GLARGINE [LANTus] (100 UNITS/ML) SYG SC (07:48)
[2019-05-11] MEDS: ISOSORBIDE MONONITRATE(SR)30 MG TAB PO (08:12)
[2019-05-11] MEDS: THIAMINE 100 MG TAB PO (08:12)
[2019-05-11] MEDS: FISH OIL 1,000 MG CAP PO ×2 (08:12→21:00)
[2019-05-11] MEDS: ASPIRIN (EC) 81 MG TAB PO (08:13)
[2019-05-11] MEDS: APIXABAN 5 MG TABLET PO ×2 (08:13→21:01)
[2019-05-11] MEDS: HYDROCODONE/APAP (5/325) TAB PO (08:21)
[2019-05-11] MEDS: BUMETANIDE 1 MG INJ IV (11:50)
[2019-05-11] MEDS: ONDANSETRON 4 MG INJ IV (12:10)
[2019-05-11] MEDS: SOD FERRIC GLUC COMPLX 125 MG in SOD CHLORIDE 0.9% 100 ML IVPB (13:46)
[2019-05-11] MEDS: ATORVASTATIN 40 MG TAB PO (21:00)
[2019-05-11] MEDS ORDERED: INSULIN ASPART [NOVOLOG] 3 ML PEN SC (21:30)
[2019-05-12] MEDS: INSULIN ASPART [NOVOLOG] 3 ML PEN SC ×8 (00:42→21:00)
[2019-05-12] MEDS: ACCU-CHEK XX ×3 (02:16)
[2019-05-12 05:59] LABS: ADD MAN DIFF? NO
[2019-05-12 06:02] LABS: WHITE BLOOD COUNT 8.1 10^3/ul (4.8-10.8)
[2019-05-12 06:02] LABS: BASOPHIL # 0.1 10^3/ul (0.0-0.1); BASOPHILS % 0.6 % (0.0-2.0); EOSINOPHILS # 0.3 10^3/ul (0.0-0.5); EOSINOPHILS % 3.1 % (0.0-7.0); HEMATOCRIT 26.2 % (42.0-52.0); HEMOGLOBIN 8.1 g/dl (14.0-18.0); LYMPHOCYTES # 0.6 10^3/ul (0.8-2.9); LYMPHOCYTES % 7.4 % (15.0-51.0); MEAN CORPUSCULAR HEMOGLOBIN 24.8 pg (29.0-33.0); MEAN CORPUSCULAR HGB CONC 30.9 g/dl (32.0-37.0); MEAN CORPUSCULAR VOLUME 80.1 fl (82.0-101.0); MEAN PLATELET VOLUME 10.5 fl (7.4-10.4); MONOCYTE # 1.5 10^3/ul (0.3-0.9); MONOCYTES % 18.1 % (0.0-11.0); NEUTROPHIL # 5.8 10^3/ul (1.6-7.5); NEUTROPHILS % 70.6 % (39.0-77.0); PLATELET COUNT 232 10^3/UL (140-415); RED BLOOD COUNT 3.27 10^6/ul (4.70-6.10); RED CELL DISTRIBUTION WIDTH 16.1 % (11.5-14.5)
[2019-05-12] MEDS: BUMETANIDE 1 MG TAB PO (06:20)
[2019-05-12 06:52] LABS: ANION GAP 9 (5-13); BLOOD UREA NITROGEN 88 mg/dl (7-20); CALCIUM 8.7 mg/dl (8.4-10.2); CARBON DIOXIDE 28 mmol/L (21-31); CHLORIDE 101 mmol/L (97-110); CREATININE 3.08 mg/dl (0.61-1.24); GLUCOSE 94 mg/dl (70-220); POTASSIUM 3.4 mmol/L (3.5-5.1); SODIUM 138 mmol/L (135-144)
[2019-05-12 07:23] LABS: MAGNESIUM 2.6 mg/dl (1.7-2.5)
[2019-05-12] MEDS: ASPIRIN (EC) 81 MG TAB PO (08:22)
[2019-05-12] MEDS: THIAMINE 100 MG TAB PO (08:22)
[2019-05-12] MEDS: POTASSIUM CHLORIDE (SR) 20 MEQ TAB PO (08:23)
[2019-05-12] MEDS: ISOSORBIDE MONONITRATE(SR)30 MG TAB PO (08:23)
[2019-05-12] MEDS: APIXABAN 5 MG TABLET PO ×2 (08:24→21:09)
[2019-05-12] MEDS: INSULIN GLARGINE [LANTus] (100 UNITS/ML) SYG SC (08:28)
[2019-05-12] MEDS: FISH OIL 1,000 MG CAP PO ×2 (08:31→21:04)
[2019-05-12] MEDS: SOD FERRIC GLUC COMPLX 125 MG in SOD CHLORIDE 0.9% 100 ML IVPB (12:51)
[2019-05-12 17:18] LABS: ADD UMIC YES; UR ASCORBIC ACID NEGATIVE (NEGATIVE); UR BILIRUBIN (Dip) NEGATIVE (NEGATIVE); UR BLOOD (Dip) NEGATIVE (NEGATIVE); UR CLARITY CLEAR (CLEAR); UR COLOR YELLOW (YELLOW); UR GLUCOSE (Dip) NEGATIVE (NEGATIVE); UR KETONES (Dip) NEGATIVE (NEGATIVE); UR LEUKOCYTE ESTERASE (Dip) NEGATIVE Leu/ul (NEGATIVE); UR NITRITE (Dip) NEGATIVE (NEGATIVE); UR RBC 0 /HPF (0-5); UR SPECIFIC GRAVITY (Dip) 1.012 (1.003-1.030); UR TOTAL PROTEIN (Dip) 2+ mg/dl (NEGATIVE); UR UROBILINOGEN (Dip) NEGATIVE (NEGATIVE); UR WBC 0 /HPF (0-5)
[2019-05-12 17:33] LABS: CREATININE,URINE RANDOM 76.03 mg/dl (20-370)
[2019-05-12 17:34] LABS: SODIUM,URINE RANDOM < 13 mmol/L (30-90)
[2019-05-12] MEDS: ATORVASTATIN 40 MG TAB PO (21:04)
[2019-05-13] MEDS: ACCU-CHEK XX (02:00)
[2019-05-13 06:41] LABS: ADD MAN DIFF? NO
[2019-05-13 06:46] LABS: BASOPHIL # 0.1 10^3/ul (0.0-0.1); BASOPHILS % 0.9 % (0.0-2.0); EOSINOPHILS # 0.3 10^3/ul (0.0-0.5); HEMATOCRIT 28.5 % (42.0-52.0); HEMOGLOBIN 8.7 g/dl (14.0-18.0); LYMPHOCYTES # 0.9 10^3/ul (0.8-2.9); LYMPHOCYTES % 11.6 % (15.0-51.0); MEAN CORPUSCULAR HEMOGLOBIN 24.7 pg (29.0-33.0); MEAN CORPUSCULAR HGB CONC 30.5 g/dl (32.0-37.0); MEAN PLATELET VOLUME 11.1 fl (7.4-10.4); MONOCYTE # 1.1 10^3/ul (0.3-0.9); MONOCYTES % 13.9 % (0.0-11.0); NEUTROPHIL # 5.4 10^3/ul (1.6-7.5); NEUTROPHILS % 69.2 % (39.0-77.0); PLATELET COUNT 268 10^3/UL (140-415); RED BLOOD COUNT 3.52 10^6/ul (4.70-6.10); RED CELL DISTRIBUTION WIDTH 16.1 % (11.5-14.5)
[2019-05-13 06:46] LABS: WHITE BLOOD COUNT 7.8 10^3/ul (4.8-10.8)
[2019-05-13 07:14] LABS: ANION GAP 10 (5-13); BLOOD UREA NITROGEN 97 mg/dl (7-20); CALCIUM 8.9 mg/dl (8.4-10.2); CARBON DIOXIDE 27 mmol/L (21-31); CHLORIDE 101 mmol/L (97-110); CREATININE 3.25 mg/dl (0.61-1.24); GLUCOSE 92 mg/dl (70-220); POTASSIUM 4.2 mmol/L (3.5-5.1); SODIUM 138 mmol/L (135-144)
[2019-05-13 07:21] LABS: PHOSPHORUS 5.8 mg/dl (2.5-4.9)
[2019-05-13 07:21] LABS: MAGNESIUM 2.5 mg/dl (1.7-2.5)
[2019-05-13] MEDS: INSULIN ASPART [NOVOLOG] 3 ML PEN SC ×7 (07:55→20:20)
[2019-05-13] MEDS: ISOSORBIDE MONONITRATE(SR)30 MG TAB PO (08:12)
[2019-05-13] MEDS: FISH OIL 1,000 MG CAP PO ×2 (08:12→20:13)
[2019-05-13] MEDS: APIXABAN 5 MG TABLET PO ×2 (08:13→20:15)
[2019-05-13] MEDS: THIAMINE 100 MG TAB PO (08:13)
[2019-05-13] MEDS: INSULIN GLARGINE [LANTus] (100 UNITS/ML) SYG SC (08:24)
[2019-05-13] MEDS: ATORVASTATIN 40 MG TAB PO (20:14)
[2019-05-13] MEDS: LORAZEPAM 2 MG INJ IV (23:11)
[2019-05-14] MEDS: ACCU-CHEK XX (01:46)
[2019-05-14 06:40] LABS: ADD MAN DIFF? NO
[2019-05-14 06:43] LABS: BASOPHIL # 0.1 10^3/ul (0.0-0.1); BASOPHILS % 0.8 % (0.0-2.0); EOSINOPHILS # 0.3 10^3/ul (0.0-0.5); EOSINOPHILS % 3.8 % (0.0-7.0); HEMATOCRIT 26.4 % (42.0-52.0); HEMOGLOBIN 8.2 g/dl (14.0-18.0); LYMPHOCYTES # 0.7 10^3/ul (0.8-2.9); LYMPHOCYTES % 8.7 % (15.0-51.0); MEAN CORPUSCULAR HEMOGLOBIN 24.7 pg (29.0-33.0); MEAN CORPUSCULAR HGB CONC 31.1 g/dl (32.0-37.0); MEAN CORPUSCULAR VOLUME 79.5 fl (82.0-101.0); MONOCYTE # 1.1 10^3/ul (0.3-0.9); MONOCYTES % 14.1 % (0.0-11.0); NEUTROPHIL # 5.8 10^3/ul (1.6-7.5); NEUTROPHILS % 72.3 % (39.0-77.0); PLATELET COUNT 260 10^3/UL (140-415); RED BLOOD COUNT 3.32 10^6/ul (4.70-6.10); RED CELL DISTRIBUTION WIDTH 16.2 % (11.5-14.5)
[2019-05-14 07:05] LABS: ANION GAP 10 (5-13); BLOOD UREA NITROGEN 103 mg/dl (7-20); CALCIUM 8.8 mg/dl (8.4-10.2); CARBON DIOXIDE 26 mmol/L (21-31); CHLORIDE 99 mmol/L (97-110); CREATININE 3.15 mg/dl (0.61-1.24); GLUCOSE 78 mg/dl (70-220); POTASSIUM 3.7 mmol/L (3.5-5.1); SODIUM 135 mmol/L (135-144)
[2019-05-14 07:09] LABS: PHOSPHORUS 5.4 mg/dl (2.5-4.9)
[2019-05-14 07:09] LABS: MAGNESIUM 2.6 mg/dl (1.7-2.5)
[2019-05-14] MEDS: INSULIN ASPART [NOVOLOG] 3 ML PEN SC ×7 (07:46→20:03)
[2019-05-14] MEDS: INSULIN GLARGINE [LANTus] (100 UNITS/ML) SYG SC (07:51)
[2019-05-14] MEDS: THIAMINE 100 MG TAB PO (08:21)
[2019-05-14] MEDS: APIXABAN 5 MG TABLET PO ×2 (08:21→20:02)
[2019-05-14] MEDS: FISH OIL 1,000 MG CAP PO ×2 (08:22→20:01)
[2019-05-14] MEDS: ISOSORBIDE MONONITRATE(SR)30 MG TAB PO (08:22)
[2019-05-14] MEDS: ATORVASTATIN 40 MG TAB PO (20:02)
[2019-05-15] MEDS: ACCU-CHEK XX (02:00)
[2019-05-15] MEDS: HYDROCODONE/APAP (5/325) TAB PO (06:21)
[2019-05-15 06:26] LABS: ADD MAN DIFF? NO
[2019-05-15 06:35] LABS: BASOPHIL # 0.1 10^3/ul (0.0-0.1); BASOPHILS % 0.9 % (0.0-2.0); EOSINOPHILS # 0.3 10^3/ul (0.0-0.5); HEMATOCRIT 24.5 % (42.0-52.0); HEMOGLOBIN 7.7 g/dl (14.0-18.0); LYMPHOCYTES % 15.2 % (15.0-51.0); MEAN CORPUSCULAR HGB CONC 31.4 g/dl (32.0-37.0); MEAN CORPUSCULAR VOLUME 79.5 fl (82.0-101.0); MEAN PLATELET VOLUME 10.8 fl (7.4-10.4); MONOCYTE # 0.8 10^3/ul (0.3-0.9); NEUTROPHIL # 4.4 10^3/ul (1.6-7.5); NEUTROPHILS % 66.4 % (39.0-77.0); PLATELET COUNT 242 10^3/UL (140-415); RED BLOOD COUNT 3.08 10^6/ul (4.70-6.10); RED CELL DISTRIBUTION WIDTH 16.5 % (11.5-14.5)
[2019-05-15 06:35] LABS: WHITE BLOOD COUNT 6.6 10^3/ul (4.8-10.8)
[2019-05-15 07:02] LABS: MAGNESIUM 2.7 mg/dl (1.7-2.5)
[2019-05-15 07:02] LABS: PHOSPHORUS 5.6 mg/dl (2.5-4.9)
[2019-05-15 07:09] LABS: ANION GAP 10 (5-13); BLOOD UREA NITROGEN 102 mg/dl (7-20); CALCIUM 8.4 mg/dl (8.4-10.2); CARBON DIOXIDE 25 mmol/L (21-31); CHLORIDE 103 mmol/L (97-110); CREATININE 2.64 mg/dl (0.61-1.24); GLUCOSE 120 mg/dl (70-220); POTASSIUM 3.8 mmol/L (3.5-5.1); SODIUM 138 mmol/L (135-144)
[2019-05-15] MEDS: INSULIN ASPART [NOVOLOG] 3 ML PEN SC ×7 (07:55→21:00)
[2019-05-15] MEDS: FISH OIL 1,000 MG CAP PO ×2 (08:28→21:08)
[2019-05-15] MEDS: APIXABAN 5 MG TABLET PO ×2 (08:29→21:08)
[2019-05-15] MEDS: THIAMINE 100 MG TAB PO (08:29)
[2019-05-15] MEDS: ISOSORBIDE MONONITRATE(SR)30 MG TAB PO (08:29)
[2019-05-15] MEDS: INSULIN GLARGINE [LANTus] (100 UNITS/ML) SYG SC (08:39)
[2019-05-15] MEDS: ATORVASTATIN 40 MG TAB PO (21:08)
[2019-05-16] MEDS: ACCU-CHEK XX (02:00)
[2019-05-16 07:31] LABS: ADD MAN DIFF? NO
[2019-05-16 07:35] LABS: WHITE BLOOD COUNT 7.5 10^3/ul (4.8-10.8)
[2019-05-16 07:35] LABS: BASOPHIL # 0.1 10^3/ul (0.0-0.1); BASOPHILS % 0.9 % (0.0-2.0); EOSINOPHILS # 0.4 10^3/ul (0.0-0.5); EOSINOPHILS % 4.8 % (0.0-7.0); HEMATOCRIT 26.1 % (42.0-52.0); HEMOGLOBIN 8.2 g/dl (14.0-18.0); LYMPHOCYTES # 0.8 10^3/ul (0.8-2.9); LYMPHOCYTES % 11.2 % (15.0-51.0); MEAN CORPUSCULAR HEMOGLOBIN 25.3 pg (29.0-33.0); MEAN CORPUSCULAR HGB CONC 31.4 g/dl (32.0-37.0); MEAN CORPUSCULAR VOLUME 80.6 fl (82.0-101.0); MEAN PLATELET VOLUME 10.9 fl (7.4-10.4); MONOCYTES % 12.8 % (0.0-11.0); NEUTROPHIL # 5.3 10^3/ul (1.6-7.5); PLATELET COUNT 265 10^3/UL (140-415); RED BLOOD COUNT 3.24 10^6/ul (4.70-6.10); RED CELL DISTRIBUTION WIDTH 16.6 % (11.5-14.5)
[2019-05-16] MEDS: INSULIN ASPART [NOVOLOG] 3 ML PEN SC ×7 (07:55→21:06)
[2019-05-16 08:03] LABS: ANION GAP 10 (5-13); BLOOD UREA NITROGEN 97 mg/dl (7-20); CALCIUM 8.7 mg/dl (8.4-10.2); CARBON DIOXIDE 25 mmol/L (21-31); CHLORIDE 102 mmol/L (97-110); CREATININE 2.82 mg/dl (0.61-1.24); GLUCOSE 106 mg/dl (70-220); MAGNESIUM 2.6 mg/dl (1.7-2.5); POTASSIUM 3.8 mmol/L (3.5-5.1); SODIUM 137 mmol/L (135-144)
[2019-05-16] MEDS: ISOSORBIDE MONONITRATE(SR)30 MG TAB PO (08:23)
[2019-05-16] MEDS: THIAMINE 100 MG TAB PO (08:23)
[2019-05-16] MEDS: APIXABAN 5 MG TABLET PO ×2 (08:23→20:13)
[2019-05-16] MEDS: INSULIN GLARGINE [LANTus] (100 UNITS/ML) SYG SC (08:31)
[2019-05-16] MEDS: FISH OIL 1,000 MG CAP PO ×3 (08:31→20:13)
[2019-05-16] MEDS: ATORVASTATIN 40 MG TAB PO (20:13)
[2019-05-17] MEDS: ACCU-CHEK XX (02:15)
[2019-05-17 06:52] LABS: ADD MAN DIFF? NO
[2019-05-17 06:59] LABS: BASOPHIL # 0.1 10^3/ul (0.0-0.1); EOSINOPHILS # 0.3 10^3/ul (0.0-0.5); EOSINOPHILS % 3.3 % (0.0-7.0); HEMATOCRIT 27.5 % (42.0-52.0); HEMOGLOBIN 8.4 g/dl (14.0-18.0); LYMPHOCYTES # 0.7 10^3/ul (0.8-2.9); LYMPHOCYTES % 8.6 % (15.0-51.0); MEAN CORPUSCULAR HEMOGLOBIN 24.9 pg (29.0-33.0); MEAN CORPUSCULAR HGB CONC 30.5 g/dl (32.0-37.0); MEAN CORPUSCULAR VOLUME 81.4 fl (82.0-101.0); MEAN PLATELET VOLUME 10.8 fl (7.4-10.4); MONOCYTE # 0.9 10^3/ul (0.3-0.9); MONOCYTES % 11.6 % (0.0-11.0); NEUTROPHIL # 5.7 10^3/ul (1.6-7.5); NEUTROPHILS % 75.1 % (39.0-77.0); PLATELET COUNT 289 10^3/UL (140-415); RED BLOOD COUNT 3.38 10^6/ul (4.70-6.10); RED CELL DISTRIBUTION WIDTH 17.2 % (11.5-14.5)
[2019-05-17 06:59] LABS: WHITE BLOOD COUNT 7.6 10^3/ul (4.8-10.8)
[2019-05-17 07:13] LABS: ANION GAP 9 (5-13); BLOOD UREA NITROGEN 91 mg/dl (7-20); CALCIUM 8.6 mg/dl (8.4-10.2); CARBON DIOXIDE 25 mmol/L (21-31); CHLORIDE 104 mmol/L (97-110); CREATININE 2.59 mg/dl (0.61-1.24); GLUCOSE 173 mg/dl (70-220); MAGNESIUM 2.6 mg/dl (1.7-2.5); PHOSPHORUS 4.9 mg/dl (2.5-4.9); POTASSIUM 4.1 mmol/L (3.5-5.1); SODIUM 138 mmol/L (135-144)
[2019-05-17] MEDS: APIXABAN 5 MG TABLET PO ×2 (09:42→21:01)
[2019-05-17] MEDS: FISH OIL 1,000 MG CAP PO ×2 (09:42→21:01)
[2019-05-17] MEDS: ISOSORBIDE MONONITRATE(SR)30 MG TAB PO (09:42)
[2019-05-17] MEDS: BUMETANIDE 1 MG TAB PO (09:42)
[2019-05-17] MEDS: THIAMINE 100 MG TAB PO (09:43)
[2019-05-17] MEDS: INSULIN ASPART [NOVOLOG] 3 ML PEN SC ×7 (09:51→21:00)
[2019-05-17] MEDS: INSULIN GLARGINE [LANTus] (100 UNITS/ML) SYG SC (09:51)
[2019-05-17] MEDS: ATORVASTATIN 40 MG TAB PO (21:02)
[2019-05-18] MEDS: ACCU-CHEK XX (02:00)
[2019-05-18 06:50] LABS: ADD MAN DIFF? NO
[2019-05-18 06:56] LABS: WHITE BLOOD COUNT 7.2 10^3/ul (4.8-10.8)
[2019-05-18 06:56] LABS: BASOPHIL # 0.1 10^3/ul (0.0-0.1); BASOPHILS % 0.8 % (0.0-2.0); EOSINOPHILS # 0.3 10^3/ul (0.0-0.5); EOSINOPHILS % 4.3 % (0.0-7.0); HEMOGLOBIN 7.9 g/dl (14.0-18.0); LYMPHOCYTES # 0.8 10^3/ul (0.8-2.9); LYMPHOCYTES % 10.8 % (15.0-51.0); MEAN CORPUSCULAR HEMOGLOBIN 24.8 pg (29.0-33.0); MEAN CORPUSCULAR HGB CONC 30.4 g/dl (32.0-37.0); MEAN CORPUSCULAR VOLUME 81.8 fl (82.0-101.0); MEAN PLATELET VOLUME 10.4 fl (7.4-10.4); MONOCYTE # 0.9 10^3/ul (0.3-0.9); MONOCYTES % 11.9 % (0.0-11.0); NEUTROPHIL # 5.2 10^3/ul (1.6-7.5); NEUTROPHILS % 71.8 % (39.0-77.0); PLATELET COUNT 266 10^3/UL (140-415); RED BLOOD COUNT 3.18 10^6/ul (4.70-6.10); RED CELL DISTRIBUTION WIDTH 17.3 % (11.5-14.5)
[2019-05-18 07:33] LABS: ANION GAP 10 (5-13); BLOOD UREA NITROGEN 83 mg/dl (7-20); CALCIUM 8.5 mg/dl (8.4-10.2); CARBON DIOXIDE 26 mmol/L (21-31); CHLORIDE 104 mmol/L (97-110); CREATININE 2.48 mg/dl (0.61-1.24); GLUCOSE 148 mg/dl (70-220); MAGNESIUM 2.4 mg/dl (1.7-2.5); PHOSPHORUS 4.5 mg/dl (2.5-4.9); POTASSIUM 3.8 mmol/L (3.5-5.1); SODIUM 140 mmol/L (135-144)
[2019-05-18] MEDS: THIAMINE 100 MG TAB PO (08:03)
[2019-05-18] MEDS: FISH OIL 1,000 MG CAP PO (08:03)
[2019-05-18] MEDS: APIXABAN 5 MG TABLET PO (08:04)
[2019-05-18] MEDS: BUMETANIDE 1 MG TAB PO (08:04)
[2019-05-18] MEDS: ISOSORBIDE MONONITRATE(SR)30 MG TAB PO (08:04)
[2019-05-18] MEDS: INSULIN ASPART [NOVOLOG] 3 ML PEN SC ×6 (08:09→17:27)
[2019-05-18] MEDS: INSULIN GLARGINE [LANTus] (100 UNITS/ML) SYG SC (08:09)
== END 2019-05-18 20:03 | DRG 291 ==
LOC: TEL 19:14 → E/R 16:14
PROC: 5A09457 Assistance with Respiratory Ventilation, 24-96 Consecutive Hours, Continuous Positive Airway Pressure (ICD-10-PCS; principal; 2019-05-06)
DX: I13.0 Hypertensive heart and chronic kidney disease with heart failure and stage 1 through stage 4 chronic kidney disease, or unspecified chronic kidney disease (principal); I50.23 Acute on chronic systolic (congestive) heart failure; N17.9 Acute kidney failure, unspecified; R65.10 Systemic inflammatory response syndrome (SIRS) of non-infectious origin without acute organ dysfunction; N18.4 Chronic kidney disease, stage 4 (severe); E10.22 Type 1 diabetes mellitus with diabetic chronic kidney disease; R07.9 Chest pain, unspecified; R06.03 Acute respiratory distress; E10.65 Type 1 diabetes mellitus with hyperglycemia; I25.10 Atherosclerotic heart disease of native coronary artery without angina pectoris; I44.7 Left bundle-branch block, unspecified; I44.0 Atrioventricular block, first degree; I42.9 Cardiomyopathy, unspecified; N40.0 Benign prostatic hyperplasia without lower urinary tract symptoms; M10.9 Gout, unspecified; D50.0 Iron deficiency anemia secondary to blood loss (chronic); Z95.5 Presence of coronary angioplasty implant and graft
CPT/HCPCS: 71045; 76775; 80048; 80053; 80061; 81001; 82270; 82550; 82553; 82728; 82962; 83036; 83540; 83605; 83735; 83880; 84100; 84155; 84300; 84439; 84443; 84484; 85014; 85018; 85025; 85610; 85730; 87040-91; 87086; 89190; 93005; 94644; 94660; 96365; 96375; 97161; 97164; 97166; 99291-25

== ENCOUNTER 2019-06-26 10:06 | Inpatient (IN) | payer OTHER, MEDICAID ==
[2019-06-26] MEDS: ASPIRIN 81 MG TAB PO (10:19)
[2019-06-26] MEDS: NITROGLYCERIN 2% 1 GM OINT PKT TD (11:31)
[2019-06-26] MEDS: FUROSEMIDE 40 MG INJ IV ×2 (11:31→17:24)
[2019-06-26] MEDS ORDERED: ACETAMINOPHEN 325 MG TAB PO ×2 (14:00→17:00)
[2019-06-26] MEDS ORDERED: ONDANSETRON 4 MG INJ IV ×2 (14:00→17:00)
[2019-06-26] MEDS ORDERED: BISACODYL 10 MG SUPP PR (17:00)
[2019-06-26] MEDS ORDERED: HYDROCODONE/APAP (5/325) TAB PO (17:00)
[2019-06-26] MEDS ORDERED: ALBUTEROL/IPRATROPIUM (NEB) 3 ML AMP HHN (17:00)
[2019-06-26] MEDS ORDERED: NACL 0.9% 3 ML SYG IV (17:00)
[2019-06-26] MEDS ORDERED: MAGNESIUM HYDROXIDE 30ML CUP PO (17:00)
[2019-06-26] MEDS ORDERED: morphine 2 MG INJ IV (17:00)
[2019-06-26] MEDS: hydrALAzine 20 MG INJ IV (17:24)
[2019-06-26] MEDS ORDERED: GLUCAGON 1 MG INJ IM (17:30)
[2019-06-26] MEDS ORDERED: DEXTROSE 50% 50 ML SYRINGE IV ×2 (17:30)
[2019-06-26] MEDS ORDERED: GLUCOSE GEL 15 GRAM TUBE PO ×2 (17:30)
[2019-06-26] MEDS ORDERED: GLUCOSE GEL 15 GRAM TUBE BUCCAL (17:30)
[2019-06-26] MEDS: INSULIN ASPART [NOVOLOG] 3 ML PEN SC ×2 (17:31→20:42)
[2019-06-26] MEDS: INSULIN GLARGINE [LANTus] (100 UNITS/ML) SYG SC (20:42)
[2019-06-26] MEDS: APIXABAN 5 MG TABLET PO (20:48)
[2019-06-26] MEDS: ATORVASTATIN 20 MG TAB PO (20:49)
[2019-06-26] MEDS: FISH OIL 1,000 MG CAP PO (20:49)
[2019-06-26] MEDS: ALBUTEROL/IPRATROPIUM (NEB) 3 ML AMP HHN (21:21)
[2019-06-27] MEDS ORDERED: ZOLPIDEM 5 MG TAB PO (00:30)
[2019-06-27] MEDS: ZOLPIDEM 5 MG TAB PO (01:03)
[2019-06-27] MEDS: ACCU-CHEK XX (02:00)
[2019-06-27] MEDS: PANTOPRAZOLE (EC) 40 MG TAB PO (06:52)
[2019-06-27] MEDS: INSULIN ASPART [NOVOLOG] 3 ML PEN SC ×4 (07:55→21:04)
[2019-06-27] MEDS: ASPIRIN 81 MG TAB PO (08:19)
[2019-06-27] MEDS: APIXABAN 5 MG TABLET PO ×2 (08:19→20:35)
[2019-06-27] MEDS: THIAMINE 100 MG TAB PO (08:19)
[2019-06-27] MEDS: ISOSORBIDE MONONITRATE(SR)30 MG TAB PO (08:19)
[2019-06-27] MEDS: FISH OIL 1,000 MG CAP PO ×2 (08:19→20:35)
[2019-06-27] MEDS: BUMETANIDE 1 MG TAB PO ×2 (08:19→08:57)
[2019-06-27] MEDS: ALBUTEROL/IPRATROPIUM (NEB) 3 ML AMP HHN ×4 (08:23→20:39)
[2019-06-27] MEDS: METOLAZONE 5 MG TAB PO (08:57)
[2019-06-27] MEDS: BUMETANIDE 1 MG INJ IV ×2 (08:57→17:03)
[2019-06-27] MEDS: ATORVASTATIN 20 MG TAB PO (20:35)
[2019-06-27] MEDS: INSULIN GLARGINE [LANTus] (100 UNITS/ML) SYG SC (21:04)
[2019-06-28] MEDS: ACCU-CHEK XX (02:07)
[2019-06-28] MEDS: BUMETANIDE 1 MG INJ IV ×2 (05:21→17:16)
[2019-06-28] MEDS: PANTOPRAZOLE (EC) 40 MG TAB PO (05:21)
[2019-06-28] MEDS: INSULIN ASPART [NOVOLOG] 3 ML PEN SC ×4 (07:51→20:32)
[2019-06-28] MEDS: ALBUTEROL/IPRATROPIUM (NEB) 3 ML AMP HHN ×4 (08:00→20:06)
[2019-06-28] MEDS: ASPIRIN 81 MG TAB PO (08:23)
[2019-06-28] MEDS: THIAMINE 100 MG TAB PO (08:23)
[2019-06-28] MEDS: APIXABAN 5 MG TABLET PO ×2 (08:23→20:23)
[2019-06-28] MEDS: FISH OIL 1,000 MG CAP PO ×2 (08:23→20:23)
[2019-06-28] MEDS: ISOSORBIDE MONONITRATE(SR)30 MG TAB PO ×2 (08:24→20:23)
[2019-06-28] MEDS: METOLAZONE 5 MG TAB PO (08:25)
[2019-06-28] MEDS: BUMETANIDE 1 MG TAB PO (08:26)
[2019-06-28] MEDS: ATORVASTATIN 20 MG TAB PO (20:22)
[2019-06-28] MEDS: INSULIN GLARGINE [LANTus] (100 UNITS/ML) SYG SC (20:29)
[2019-06-29] MEDS: ACCU-CHEK XX ×2 (01:30→21:45)
[2019-06-29] MEDS: BUMETANIDE 1 MG INJ IV ×2 (05:10→17:05)
[2019-06-29] MEDS: PANTOPRAZOLE (EC) 40 MG TAB PO (05:11)
[2019-06-29] MEDS: INSULIN ASPART [NOVOLOG] 3 ML PEN SC ×4 (07:46→21:00)
[2019-06-29] MEDS: ACETAZOLAMIDE 500 MG INJ IV (07:57)
[2019-06-29] MEDS: FISH OIL 1,000 MG CAP PO ×2 (07:58→21:18)
[2019-06-29] MEDS: THIAMINE 100 MG TAB PO (07:58)
[2019-06-29] MEDS: ASPIRIN 81 MG TAB PO (07:59)
[2019-06-29] MEDS: POTASSIUM CHLORIDE (SR) 20 MEQ TAB PO (07:59)
[2019-06-29] MEDS: APIXABAN 5 MG TABLET PO ×2 (07:59→21:18)
[2019-06-29] MEDS: ISOSORBIDE MONONITRATE(SR)30 MG TAB PO ×2 (07:59→21:18)
[2019-06-29] MEDS: ALBUTEROL/IPRATROPIUM (NEB) 3 ML AMP HHN ×4 (08:21→20:07)
[2019-06-29] MEDS: ATORVASTATIN 20 MG TAB PO (21:19)
[2019-06-29] MEDS: INSULIN GLARGINE [LANTus] (100 UNITS/ML) SYG SC (21:44)
[2019-06-30] MEDS: PANTOPRAZOLE (EC) 40 MG TAB PO (06:01)
[2019-06-30] MEDS: BUMETANIDE 1 MG INJ IV ×2 (06:01→18:12)
[2019-06-30] MEDS: INSULIN ASPART [NOVOLOG] 3 ML PEN SC ×4 (07:26→20:48)
[2019-06-30] MEDS: ALBUTEROL/IPRATROPIUM (NEB) 3 ML AMP HHN ×4 (07:46→21:30)
[2019-06-30] MEDS: FISH OIL 1,000 MG CAP PO ×2 (08:16→20:32)
[2019-06-30] MEDS: THIAMINE 100 MG TAB PO (08:16)
[2019-06-30] MEDS: ASPIRIN 81 MG TAB PO (08:16)
[2019-06-30] MEDS: APIXABAN 5 MG TABLET PO ×2 (08:16→20:33)
[2019-06-30] MEDS: ISOSORBIDE MONONITRATE(SR)30 MG TAB PO ×2 (08:17→20:33)
[2019-06-30] MEDS: POTASSIUM CHLORIDE (SR) 20 MEQ TAB PO (11:13)
[2019-06-30] MEDS: ATORVASTATIN 20 MG TAB PO (20:33)
[2019-06-30] MEDS: INSULIN GLARGINE [LANTus] (100 UNITS/ML) SYG SC (20:47)
[2019-07-01] MEDS: ZOLPIDEM 5 MG TAB PO (00:48)
[2019-07-01] MEDS: ACCU-CHEK XX (02:00)
[2019-07-01] MEDS: PANTOPRAZOLE (EC) 40 MG TAB PO (06:22)
[2019-07-01] MEDS: BUMETANIDE 1 MG INJ IV (06:22)
[2019-07-01] MEDS: INSULIN ASPART [NOVOLOG] 3 ML PEN SC ×4 (08:08→21:24)
[2019-07-01] MEDS: ISOSORBIDE MONONITRATE(SR)30 MG TAB PO ×2 (08:54→20:16)
[2019-07-01] MEDS: FISH OIL 1,000 MG CAP PO ×2 (08:54→20:15)
[2019-07-01] MEDS: APIXABAN 5 MG TABLET PO ×2 (08:54→20:17)
[2019-07-01] MEDS: THIAMINE 100 MG TAB PO (08:54)
[2019-07-01] MEDS: ASPIRIN 81 MG TAB PO (08:54)
[2019-07-01] MEDS: ALBUTEROL/IPRATROPIUM (NEB) 3 ML AMP HHN ×3 (09:57→20:48)
[2019-07-01] MEDS: ATORVASTATIN 20 MG TAB PO (20:16)
[2019-07-01] MEDS: INSULIN GLARGINE [LANTus] (100 UNITS/ML) SYG SC (21:24)
[2019-07-02] MEDS: ACCU-CHEK XX (02:29)
[2019-07-02] MEDS: PANTOPRAZOLE (EC) 40 MG TAB PO (05:42)
[2019-07-02] MEDS: INSULIN ASPART [NOVOLOG] 3 ML PEN SC ×4 (07:37→21:00)
[2019-07-02] MEDS: ALBUTEROL/IPRATROPIUM (NEB) 3 ML AMP HHN ×4 (08:00→20:44)
[2019-07-02] MEDS: FISH OIL 1,000 MG CAP PO ×2 (09:41→20:49)
[2019-07-02] MEDS: THIAMINE 100 MG TAB PO (09:42)
[2019-07-02] MEDS: ISOSORBIDE MONONITRATE(SR)30 MG TAB PO ×2 (09:42→20:49)
[2019-07-02] MEDS: ASPIRIN 81 MG TAB PO (09:43)
[2019-07-02] MEDS: APIXABAN 5 MG TABLET PO ×2 (09:43→20:49)
[2019-07-02] MEDS: POTASSIUM CHLORIDE (SR) 20 MEQ TAB PO (09:43)
[2019-07-02] MEDS: ATORVASTATIN 20 MG TAB PO (20:49)
[2019-07-02] MEDS: INSULIN GLARGINE [LANTus] (100 UNITS/ML) SYG SC (21:00)
[2019-07-03] MEDS: ACCU-CHEK XX (03:03)
[2019-07-03] MEDS: PANTOPRAZOLE (EC) 40 MG TAB PO (06:20)
[2019-07-03] MEDS: INSULIN ASPART [NOVOLOG] 3 ML PEN SC ×4 (07:55→20:59)
[2019-07-03] MEDS: ALBUTEROL/IPRATROPIUM (NEB) 3 ML AMP HHN ×4 (08:03→20:15)
[2019-07-03] MEDS: THIAMINE 100 MG TAB PO (08:26)
[2019-07-03] MEDS: FISH OIL 1,000 MG CAP PO ×2 (08:26→20:32)
[2019-07-03] MEDS: APIXABAN 5 MG TABLET PO ×2 (08:27→20:32)
[2019-07-03] MEDS: BUMETANIDE 1 MG TAB PO (08:27)
[2019-07-03] MEDS: ISOSORBIDE MONONITRATE(SR)30 MG TAB PO ×2 (08:27→20:32)
[2019-07-03] MEDS: ASPIRIN 81 MG TAB PO (08:27)
[2019-07-03] MEDS: POTASSIUM CHLORIDE (SR) 20 MEQ TAB PO (10:51)
[2019-07-03] MEDS: ATORVASTATIN 20 MG TAB PO (20:32)
[2019-07-03] MEDS: INSULIN GLARGINE [LANTus] (100 UNITS/ML) SYG SC (20:59)
[2019-07-04] MEDS: ACCU-CHEK XX (02:16)
[2019-07-04] MEDS: PANTOPRAZOLE (EC) 40 MG TAB PO (05:22)
[2019-07-04] MEDS: ALBUTEROL/IPRATROPIUM (NEB) 3 ML AMP HHN ×4 (07:40→20:02)
[2019-07-04] MEDS: INSULIN ASPART [NOVOLOG] 3 ML PEN SC ×4 (07:55→20:48)
[2019-07-04] MEDS: FISH OIL 1,000 MG CAP PO ×2 (09:40→20:40)
[2019-07-04] MEDS: ASPIRIN 81 MG TAB PO (09:40)
[2019-07-04] MEDS: THIAMINE 100 MG TAB PO (09:40)
[2019-07-04] MEDS: BUMETANIDE 1 MG TAB PO (09:41)
[2019-07-04] MEDS: ISOSORBIDE MONONITRATE(SR)30 MG TAB PO ×2 (09:41→20:41)
[2019-07-04] MEDS: APIXABAN 5 MG TABLET PO ×2 (09:43→20:41)
[2019-07-04] MEDS: ATORVASTATIN 20 MG TAB PO (20:40)
[2019-07-04] MEDS: INSULIN GLARGINE [LANTus] (100 UNITS/ML) SYG SC (20:48)
[2019-07-05] MEDS: ACCU-CHEK XX (02:00)
[2019-07-05] MEDS: PANTOPRAZOLE (EC) 40 MG TAB PO (05:34)
[2019-07-05] MEDS ORDERED: BISACODYL (EC) 5 MG TAB PO (06:00)
[2019-07-05] MEDS: ISOSORBIDE MONONITRATE(SR)30 MG TAB PO (08:09)
[2019-07-05] MEDS: POTASSIUM CHLORIDE (SR) 20 MEQ TAB PO (08:10)
[2019-07-05] MEDS: THIAMINE 100 MG TAB PO (08:10)
[2019-07-05] MEDS: BUMETANIDE 1 MG TAB PO (08:10)
[2019-07-05] MEDS: ASPIRIN 81 MG TAB PO (08:11)
[2019-07-05] MEDS: FISH OIL 1,000 MG CAP PO (08:11)
[2019-07-05] MEDS: APIXABAN 5 MG TABLET PO (08:11)
[2019-07-05] MEDS: INSULIN ASPART [NOVOLOG] 3 ML PEN SC ×2 (08:16→12:09)
[2019-07-05] MEDS: ALBUTEROL/IPRATROPIUM (NEB) 3 ML AMP HHN (09:27)
== END 2019-07-05 13:50 | disposition home health service (06) | DRG 291 ==
LOC: E/R 10:06 → TEL 13:50
DX: I13.0 Hypertensive heart and chronic kidney disease with heart failure and stage 1 through stage 4 chronic kidney disease, or unspecified chronic kidney disease (principal); J96.01 Acute respiratory failure with hypoxia; I50.23 Acute on chronic systolic (congestive) heart failure; N17.9 Acute kidney failure, unspecified; I47.2 Ventricular tachycardia; N18.4 Chronic kidney disease, stage 4 (severe); I42.9 Cardiomyopathy, unspecified; E11.8 Type 2 diabetes mellitus with unspecified complications; D64.9 Anemia, unspecified; E78.5 Hyperlipidemia, unspecified; N18.9 Chronic kidney disease, unspecified; Z95.5 Presence of coronary angioplasty implant and graft; M10.9 Gout, unspecified; Z91.14 Patient's other noncompliance with medication regimen; Z91.19 Patient's noncompliance with other medical treatment and regimen
CPT/HCPCS: 36415; 71045; 80048; 80053; 80061; 81001; 81003; 82043; 82550; 82553; 82962; 83036; 83735; 83880; 84100; 84155; 84300; 84436; 84443; 84479; 84484; 85025; 85610; 85730; 93005; 94640; 94664; 96374; 97110; 97116; 97162; 97530; 99285-25